=== PATIENT | male | born 1960 | race Caucasian/White ===

== ENCOUNTER 2019-08-18 16:03 | Outpatient (RCR) | payer MEDICARE, OTHER, SELFPAY ==
[2019-06-22 12:57] LABS: INR 2.5; Prothrombin Time 26.6 Seconds (11.1-14.7)
[2019-07-20 10:28] LABS: Prothrombin Time 30.5 Seconds (11.1-14.7)
[2019-08-18 17:27] LABS: Prothrombin Time 22.4 Seconds (11.1-14.7)
== END 2019-09-20 23:59 | disposition home or self-care (01) ==
LOC: ANHLAB 16:03
PROVIDERS: PCP Family Medicine; Visit Provider Internal Medicine Cardiovascular Disease
DX: I48.91 Unspecified atrial fibrillation (principal)
CPT/HCPCS: 36415; 85610

== ENCOUNTER 2019-12-21 07:50 | Outpatient (RCR) | payer MEDICARE, OTHER, SELFPAY ==
[2019-09-23 08:42] LABS: INR 2.4; Prothrombin Time 25.8 Seconds (11.1-14.7)
[2019-09-23 08:43] LABS: Alanine Aminotransferase 59 U/L (4-50); Blood Urea Nitrogen 15 mg/dL (9-20); Calcium 9.5 mg/dL (8.4-10.2); Carbon Dioxide 24 mmol/L (22-30); Chloride 104 mmol/L (98-107); Cholesterol 150 mg/dL (0-200); Estimated Glomerular Filt Rate > 60; Glucose 250 mg/dL (75-110); HDL Direct 41 mg/dL; Potassium 4.2 mmol/L (3.4-5.0); Sodium 137 mmol/L (137-145); Triglycerides 338 mg/dL (<150)
[2019-09-23 08:54] LABS: LDL Cholesterol Direct 69 mg/dL
[2019-09-23 10:41] LABS: Hemoglobin A1C 10.5 % (<5.7)
[2019-11-06 08:54] LABS: INR 2.4; Prothrombin Time 25.6 Seconds (11.1-14.7)
[2019-12-21 09:17] LABS: INR 2.3; Prothrombin Time 24.5 Seconds (11.1-14.7)
== END 2019-12-22 23:59 | disposition home or self-care (01) ==
LOC: ANHLAB 07:50
PROVIDERS: PCP Family Medicine; Visit Provider Internal Medicine Cardiovascular Disease
DX: E11.65 Type 2 diabetes mellitus with hyperglycemia (principal); I48.91 Unspecified atrial fibrillation
CPT/HCPCS: 36415; 80048; 80061; 83036; 84460; 85610

== ENCOUNTER 2020-02-23 07:04 | Outpatient (CLI) | payer MEDICARE, OTHER, SELFPAY ==
[2020-02-23 07:58] LABS: Hemoglobin A1C 10.4 % (<5.7)
[2020-02-23 07:59] LABS: Alanine Aminotransferase 64 U/L (4-50); Anion Gap 12.1 mmol/L (7-16); Blood Urea Nitrogen 15 mg/dL (9-20); Calcium 8.6 mg/dL (8.4-10.2); Carbon Dioxide 23 mmol/L (22-30); Chloride 106 mmol/L (98-107); Cholesterol 157 mg/dL (0-200); Estimated Glomerular Filt Rate > 60; Glucose 238 mg/dL (75-110); HDL Direct 41 mg/dL; Potassium 4.1 mmol/L (3.4-5.0); Sodium 137 mmol/L (137-145); Triglycerides 284 mg/dL (<150)
[2020-02-23 08:10] LABS: LDL Cholesterol Direct 65 mg/dL
== END 2020-02-23 07:05 | disposition home or self-care (01) ==
PROVIDERS: PCP Family Medicine; Visit Provider Family Medicine
DX: E11.65 Type 2 diabetes mellitus with hyperglycemia (principal); E78.5 Hyperlipidemia, unspecified; E78.1 Pure hyperglyceridemia
CPT/HCPCS: 36415; 80048; 80061; 83036; 84460; 85610

== ENCOUNTER 2020-04-25 08:44 | Outpatient (RCR) | payer MEDICARE, OTHER, SELFPAY ==
[2020-01-26 09:20] LABS: INR 2.4; Prothrombin Time 25.9 Seconds (11.1-14.7)
[2020-02-23 08:08] LABS: INR 2.6; Prothrombin Time 27.3 Seconds (11.1-14.7)
[2020-03-29 09:36] LABS: INR 2.5; Prothrombin Time 26.6 Seconds (11.1-14.7)
[2020-04-25 09:24] LABS: INR 2.5; Prothrombin Time 26.2 Seconds (11.1-14.7)
== END 2020-04-25 23:59 | disposition home or self-care (01) ==
LOC: ANHLAB 08:44
PROVIDERS: PCP Family Medicine; Visit Provider Internal Medicine Cardiovascular Disease
DX: I48.0 Paroxysmal atrial fibrillation (principal); Z79.01 Long term (current) use of anticoagulants
CPT/HCPCS: 36415; 85610

== ENCOUNTER 2020-08-22 06:54 | Outpatient (RCR) | payer MEDICARE, OTHER, SELFPAY ==
[2020-05-27 09:14] LABS: INR 2.2; Prothrombin Time 25.4 Seconds (11.1-14.7)
[2020-05-27 09:19] LABS: Alanine Aminotransferase 46 U/L (4-50); Anion Gap 5 mmol/L (8-16); Blood Urea Nitrogen 18 mg/dL (9-20); Calcium 9.2 mg/dL (8.4-10.2); Carbon Dioxide 25 mmol/L (22-30); Chloride 107 mmol/L (98-107); Cholesterol 151 mg/dL (0-200); Estimated Glomerular Filt Rate > 60; Glucose 215 mg/dL (75-110); HDL Direct 40 mg/dL; Potassium 4.1 mmol/L (3.4-5.0); Sodium 137 mmol/L (137-145); Triglycerides 249 mg/dL (<150)
[2020-05-27 09:30] LABS: Hemoglobin A1C 9.3 % (<5.7)
[2020-05-27 09:31] LABS: LDL Cholesterol Direct 60 mg/dL
[2020-05-27 09:40] LABS: MALB Creatinine Ratio 27.7 mg/g (0-30); Microalbumin Urine Random 42.4 mg/L (0-16.7)
[2020-06-22 10:54] LABS: INR 2.8
[2020-07-26 13:24] LABS: INR 2.7; Prothrombin Time 28.8 Seconds (11.1-14.7)
[2020-08-22 07:54] LABS: INR 2.4; Prothrombin Time 26.5 Seconds (11.1-14.7)
== END 2020-08-25 23:59 | disposition home or self-care (01) ==
LOC: ANHLAB 06:54
PROVIDERS: PCP Physician Assistant; Referring Provider Family Medicine; Visit Provider Internal Medicine Cardiovascular Disease
DX: Z51.81 Encounter for therapeutic drug level monitoring (principal); I48.0 Paroxysmal atrial fibrillation; E11.65 Type 2 diabetes mellitus with hyperglycemia; Z79.01 Long term (current) use of anticoagulants
CPT/HCPCS: 36415; 80048; 80053; 80061; 82043; 83036; 84460; 85610

== ENCOUNTER 2020-08-22 06:55 | Outpatient (CLI) | payer MEDICARE, OTHER, SELFPAY ==
[2020-08-22 07:59] LABS: Alanine Aminotransferase 51 U/L (4-50); Alkaline Phosphatase 81 U/L (38-126); Anion Gap 7 mmol/L (8-16); Aspartate Amino Transferase 48 U/L (17-59); Bilirubin,Total 0.8 mg/dL (0.2-1.3); Blood Urea Nitrogen 17 mg/dL (9-20); Calcium 8.8 mg/dL (8.4-10.2); Carbon Dioxide 26 mmol/L (22-30); Chloride 103 mmol/L (98-107); Estimated Glomerular Filt Rate > 60; Glucose 246 mg/dL (75-110); Potassium 4.1 mmol/L (3.4-5.0); Sodium 136 mmol/L (137-145)
[2020-08-22 08:51] LABS: Hemoglobin A1C 10.1 % (<5.7)
== END 2020-08-22 06:56 | disposition home or self-care (01) ==
PROVIDERS: PCP Physician Assistant; Visit Provider Physician Assistant
DX: E11.9 Type 2 diabetes mellitus without complications (principal)
CPT/HCPCS: 36415; 80053; 83036

== ENCOUNTER 2020-11-24 08:45 | Outpatient (CLI) | payer MEDICARE, OTHER, SELFPAY ==
[2020-11-24 09:25] LABS: Alanine Aminotransferase 57 U/L (4-50); Albumin Level 4.2 g/dL (3.5-5.1); Alkaline Phosphatase 77 U/L (38-126); Anion Gap 5 mmol/L (8-16); Aspartate Amino Transferase 58 U/L (17-59); Bilirubin,Total 0.8 mg/dL (0.2-1.3); Blood Urea Nitrogen 16 mg/dL (9-20); Calcium 9.5 mg/dL (8.4-10.2); Carbon Dioxide 29 mmol/L (22-30); Chloride 103 mmol/L (98-107); Estimated Glomerular Filt Rate > 60; Glucose 213 mg/dL (75-110); Hemoglobin A1C 10.8 % (<5.7); Potassium 4.4 mmol/L (3.4-5.0); Sodium 137 mmol/L (137-145)
== END 2020-11-24 08:46 | disposition home or self-care (01) ==
LOC: ANHLAB 08:48
PROVIDERS: PCP Physician Assistant; Visit Provider Physician Assistant
DX: E11.9 Type 2 diabetes mellitus without complications (principal)
CPT/HCPCS: 36415; 80053; 83036

== ENCOUNTER 2020-11-24 08:50 | Outpatient (RCR) | payer MEDICARE, OTHER, SELFPAY ==
[2020-09-19 08:53] LABS: INR 2.6; Prothrombin Time 28.6 Seconds (11.1-14.7)
[2020-10-24 08:36] LABS: INR 2.3; Prothrombin Time 25.7 Seconds (11.1-14.7)
[2020-10-24 08:40] LABS: Cholesterol 137 mg/dL (0-200); HDL Direct 41 mg/dL; Triglycerides 252 mg/dL (<150)
[2020-10-24 08:51] LABS: LDL Cholesterol Direct 50 mg/dL
[2020-11-24 09:20] LABS: INR 2.7; Prothrombin Time 29.1 Seconds (11.1-14.7)
[2020-11-24 09:22] LABS: Cholesterol 141 mg/dL (0-200); HDL Direct 44 mg/dL; Triglycerides 268 mg/dL (<150)
[2020-11-24 09:33] LABS: LDL Cholesterol Direct 53 mg/dL
== END 2020-12-18 23:59 | disposition home or self-care (01) ==
LOC: ANHLAB 08:50
PROVIDERS: PCP Physician Assistant; Visit Provider Internal Medicine Cardiovascular Disease
DX: Z51.81 Encounter for therapeutic drug level monitoring (principal); I48.0 Paroxysmal atrial fibrillation; E11.69 Type 2 diabetes mellitus with other specified complication; E78.5 Hyperlipidemia, unspecified; Z79.01 Long term (current) use of anticoagulants
CPT/HCPCS: 36415; 80053; 80061; 83036; 85610

== ENCOUNTER 2021-02-22 06:42 | Outpatient (RCR) | payer MEDICARE, OTHER, SELFPAY ==
[2020-12-20 11:24] LABS: INR 2.1; Prothrombin Time 24.1 Seconds (11.1-14.7)
[2021-01-24 10:14] LABS: INR 2.5; Prothrombin Time 26.7 Seconds (11.1-14.7)
[2021-02-22 07:57] LABS: INR 2.3; Prothrombin Time 25.1 Seconds (11.1-14.7)
== END 2021-03-20 23:59 | disposition home or self-care (01) ==
LOC: ANHLAB 06:42
PROVIDERS: PCP Physician Assistant; Visit Provider Internal Medicine Cardiovascular Disease
DX: Z51.81 Encounter for therapeutic drug level monitoring (principal); I48.0 Paroxysmal atrial fibrillation; Z79.01 Long term (current) use of anticoagulants
CPT/HCPCS: 36415; 85610

== ENCOUNTER 2021-06-07 09:13 | Outpatient (RCR) | payer MEDICARE, OTHER, SELFPAY ==
[2021-03-28 09:40] LABS: INR 2.7; Prothrombin Time 27.9 Seconds (11.1-14.7)
[2021-04-24 07:38] LABS: INR 3.1; Prothrombin Time 31.1 Seconds (11.1-14.7)
[2021-05-08 07:43] LABS: INR 2.6; Prothrombin Time 27.2 Seconds (11.1-14.7)
[2021-06-07 11:35] LABS: INR 2.5; Prothrombin Time 26.3 Seconds (11.1-14.7)
== END 2021-06-26 23:59 | disposition home or self-care (01) ==
LOC: ANHLAB 09:13
PROVIDERS: PCP Physician Assistant; Visit Provider Internal Medicine Cardiovascular Disease
DX: Z51.81 Encounter for therapeutic drug level monitoring (principal); I48.0 Paroxysmal atrial fibrillation; Z79.01 Long term (current) use of anticoagulants
CPT/HCPCS: 36415; 85610

== ENCOUNTER 2021-07-10 07:21 | Outpatient (RCR) | payer MEDICARE, OTHER, SELFPAY ==
[2021-07-10 08:13] LABS: INR 2.2; Prothrombin Time 24.1 Seconds (11.1-14.7)
== END 2021-10-08 23:59 | disposition home or self-care (01) ==
LOC: ANHLAB 07:21
PROVIDERS: PCP Physician Assistant; Visit Provider Internal Medicine Cardiovascular Disease
DX: Z51.81 Encounter for therapeutic drug level monitoring (principal); I48.0 Paroxysmal atrial fibrillation; Z79.01 Long term (current) use of anticoagulants
CPT/HCPCS: 36415; 85610

== ENCOUNTER 2022-02-26 06:01 | Emergency (ER) | payer MEDICARE, SELFPAY ==
--- NOTE | ~2022-02-26 | XR_ITS ---
EXAMINATION: XR foot RT min 3V DATE: 02/26/2022 06:31 INDICATION: Medial right foot pain. TECHNIQUE: 3 views of right foot were obtained. COMPARISON: Right foot radiographs 05/25/2016 FINDINGS: There is mild hallux valgus. A bunionette deformity is again seen. There is moderate osteoa rthritis of first metatarsophalangeal joint and mild osteoarthritis of some the interphalangeal joint s and midfoot joints. There is an enthesophyte at plantar aspect of calcaneal tuberosity. IMPRESSION: 1. Mild hallux valgus. 2. Polyarticular osteoarthritis. 3. Bunionette. Reviewed, dictated and finalized at location A.
[2022-02-26 06:07] VITALS: BP 139/87; PULSE 91; RESP 16; TEMP 36.4; O2SAT 97
--- NOTE | 2022-02-26 06:21 | ED.GENADULT ---
HPI - General Adult General Chief complaint: Extremity Injury, Lower Stated complaint: Right foot pain Time Seen by Provider: 02/26/22 06:12 History of Present Illness HPI narrative: 61-year-old male presenting to the emergency department for evaluation of right foot pain. Patient states approximately 8 days ago he was working in his yard and when walking back in the house he noticed he was having right foot pain. Patient states the right foot pain has persisted. Patient states pain is worsened with ambulation. Patient is a diabetic Related Data Home Medications Medication Instructions Recorded Confirmed aspirin 81 mg tablet,delayed 81 mg PO DAILY 07/19/20 12/22/21 release carvedilol 6.25 mg tablet 6.25 mg PO Q12H 07/19/20 12/22/21 furosemide 40 mg tablet 40 mg PO QAM 07/19/20 12/22/21 lisinopril 10 mg tablet 10 mg PO DAILY 07/19/20 12/22/21 mecobalamin (vitamin B12) 1,000 1,000 mcg PO DAILY 07/19/20 12/22/21 mcg chewable tablet multivitamin 1 tablet PO DAILY 07/19/20 12/22/21 omega-3 fatty acids 1,000 mg 1,000 mg PO DAILY 07/19/20 12/22/21 capsule (Fish Oil Concentrate) warfarin 10 mg tablet 10 mg PO QMWF 07/19/20 12/22/21 warfarin 2.5 mg tablet 2.5 mg PO DAILY 07/19/20 12/22/21 warfarin 7.5 mg tablet 7.5 mg PO DAILY 07/19/20 12/22/21 ascorbate calcium (vitamin C) 500 500 mg PO DAILY 06/07/21 12/22/21 mg tablet simvastatin 10 mg tablet 20 mg PO DAILY 06/07/21 12/22/21 Allergies Allergy/AdvReac Type Severity Reaction Status Date / Time Grass Allergy Mild Itching Uncoded 02/26/22 06:11 Review of Systems Review of Systems: CONSTITUTIONAL: Denies fever, chills, or sweats. EYES: Denies visual changes, redness, or discharge. ENT: Denies rhinorrhea, congestion, sore throat, or otalgia. CARDIOVASCULAR: Denies chest pain, palpitations, or edema. RESPIRATORY: Denies cough or dyspnea. GASTROINTESTINAL: Denies abdominal pain, nausea, vomiting, or diarrhea. GENITOURINARY: Denies dysuria or hematuria. SKIN: Denies rash or itching. MUSCULOSKELETAL: Right foot pain, see HPI NEUROLOGIC: Denies headache, numbness, or weakness. [facility] Past Medical History Medical History Anxiety CAD (coronary artery disease) Heart disease History of [place] (myocardial infarction) Hyperlipidemia Hypertension Obesity (BMI 35.0-39.9 without comorbidity) Other fatigue Type 2 diabetes mellitus Surgical History Surgical History Cardiac defibrillator in place History of heart artery stent Family History Family History Father Heart disease Mother No known problems Sibling Heart disease Sibling Asthma Social History Social History Smoking packs per day: 1 Smoking cigarettes per day: 20.0 Years smoked: 20 Smoking pack-years: 20.00 Smoking status: Never smoker Second hand tobacco smoke exposure: Yes Alcohol intake: never Substance use: never Exam Narrative: APPEARANCE: Well appearing, no pain, no distress, well-nourished. HEAD: normocephalic, atraumatic. NECK: Supple. No adenopathy, no masses. RESPIRATORY: Airway patent, respirations nonlabored. Clear to auscultation bilaterally, no rales, rhonchi, wheezing. CARDIOVASCULAR: Regular rate and rhythm without murmurs rubs or gallops. ABDOMINAL: Soft, nontender, nondistended, normal bowel sounds MUSCULOSKELETAL: No right lower extremity tenderness to palpation. No right ankle tenderness to palpation. Patient does have mid foot tenderness to palpation. Mild erythema which patient attributes to a hot pad that was removed prior to arrival. No evidence of cellulitis. No edema, no ecchymosis, NEURO: Alert. Cranial nerves II through XII intact. Grossly intact SKIN: Warm, dry. Normal Color Course Vital Sig
== END 2022-02-26 07:11 | disposition home or self-care (01) ==
PROVIDERS: Emergency Provider Emergency Medicine; PCP Physician Assistant
DX: M79.671 Pain in right foot (principal); I25.10 Atherosclerotic heart disease of native coronary artery without angina pectoris; I25.2 Old myocardial infarction; E78.5 Hyperlipidemia, unspecified; E11.9 Type 2 diabetes mellitus without complications; I11.9 Hypertensive heart disease without heart failure; Z79.01 Long term (current) use of anticoagulants; Z79.82 Long term (current) use of aspirin; Z79.84 Long term (current) use of oral hypoglycemic drugs; Z79.4 Long term (current) use of insulin; F17.210 Nicotine dependence, cigarettes, uncomplicated; M20.11 Hallux valgus (acquired), right foot; M19.071 Primary osteoarthritis, right ankle and foot; M21.621 Bunionette of right foot
CPT/HCPCS: 73630; 99283

== ENCOUNTER 2022-04-30 05:09 | Emergency (ER) | payer MEDICARE, SELFPAY ==
--- NOTE | ~2022-04-30 | XR_ITS ---
EXAMINATION: XR chest 2V DATE: 04/30/2022 06:13 INDICATION: Palpitations. TECHNIQUE: Frontal and lateral views of the chest were obtained. COMPARISON: Chest 2 views 01/10/2018 FINDINGS: The chest demonstrates clear lungs without pneumonia, pleural effusion, or pneumothorax. Th e heart size is normal. There is a left chest pacer/defibrillator with leads in right atrium, right v entricle, and coronary sinus. IMPRESSION: 1. No acute cardiopulmonary disease. Reviewed, dictated and finalized at location A.
[2022-04-30 05:12] VITALS: BP 136/88; PULSE 101; RESP 15; TEMP 36.6; O2SAT 96
--- NOTE | 2022-04-30 05:16 | ECG_ITS ---
Measurements Intervals [place] Rate: 97 P: 110 NV: 87 QRS: 244 QRSD: 160 T: 38 QT: 396 QTc: 504 Interpretive Statements PROBABLE SINUS RHYTHM WITH VENTRICULAR PACING ALTHOUGH P WAVES ARE DIFFICULT TO DISCERN KNOWN BIVENTRICULAR PACEMAKER NO PREVIOUS EKGS AVAILABLE Electronically Signed On 05-01-2022 12:59:19 CDT by Bryanna Murillo M.D.
--- NOTE | 2022-04-30 05:22 | ED.ARRPALP ---
HPI - Arrhythmia/Palpitations General Chief Complaint: Arrhythmia/Palpitations Stated Complaint: palpitations Time Seen by Provider: 04/30/22 05:13 History of Present Illness HPI narrative: This is a 61-year-old male with past medical history of [place] main (status post pacemaker/ICD placement) diabetes, hypertension, who presents to the emergency department complaining of palpitations for the past 3 days. Patient denies any associated pain though feels like he is exerting himself and presents just to be checked out. He states he is also felt crappy without any known sick contacts, diarrhea, or vomiting. He denies any recent changes in his medications. Related Data Home Medications Medication Instructions Recorded Confirmed aspirin 81 mg tablet,delayed 81 mg PO DAILY 07/19/20 12/22/21 release carvedilol 6.25 mg tablet 6.25 mg PO Q12H 07/19/20 12/22/21 furosemide 40 mg tablet 40 mg PO QAM 07/19/20 12/22/21 lisinopril 10 mg tablet 10 mg PO DAILY 07/19/20 12/22/21 mecobalamin (vitamin B12) 1,000 1,000 mcg PO DAILY 07/19/20 12/22/21 mcg chewable tablet multivitamin 1 tablet PO DAILY 07/19/20 12/22/21 omega-3 fatty acids 1,000 mg 1,000 mg PO DAILY 07/19/20 12/22/21 capsule (Fish Oil Concentrate) warfarin 10 mg tablet 10 mg PO QMWF 07/19/20 12/22/21 warfarin 2.5 mg tablet 2.5 mg PO DAILY 07/19/20 12/22/21 warfarin 7.5 mg tablet 7.5 mg PO DAILY 07/19/20 12/22/21 ascorbate calcium (vitamin C) 500 500 mg PO DAILY 06/07/21 12/22/21 mg tablet simvastatin 10 mg tablet 20 mg PO DAILY 06/07/21 12/22/21 Allergies Allergy/AdvReac Type Severity Reaction Status Date / Time Grass Allergy Mild Itching Uncoded 04/30/22 05:22 Review of Systems Review of Systems: CONSTITUTIONAL: Denies fever, chills, or sweats. EYES: Denies visual changes, redness, or discharge. ENT: Denies rhinorrhea, congestion, sore throat, or otalgia. CARDIOVASCULAR: Palpitations denies chest pain, or edema. RESPIRATORY: Denies cough or dyspnea. GASTROINTESTINAL: Denies abdominal pain, nausea, vomiting, or diarrhea. GENITOURINARY: Denies dysuria or hematuria. SKIN: Denies rash or itching. MUSCULOSKELETAL: Denies back pain, joint pain, or myalgia. NEUROLOGIC: Denies headache, numbness, dizziness, or weakness. PSYCHIATRIC: Denies anxiety or depression. [facility] Past Medical History Medical History Anxiety CAD (coronary artery disease) Heart disease History of [place] (myocardial infarction) Hyperlipidemia Hypertension Obesity (BMI 35.0-39.9 without comorbidity) Other fatigue Type 2 diabetes mellitus Surgical History Surgical History Cardiac defibrillator in place History of heart artery stent Family History Family History Father Heart disease Mother No known problems Sibling Heart disease Sibling Asthma Social History Social History Smoking packs per day: 1 Smoking cigarettes per day: 20.0 Years smoked: 20 Smoking pack-years: 20.00 Smoking status: Never smoker Second hand tobacco smoke exposure: Yes Alcohol intake: never Substance use: never Exam Narrative: GENERAL: Well-developed, well-nourished, and in no acute distress. HEAD: Normocephalic, atraumatic. EYES: PERRLA and EOMI. ENT: Nares clear, no rhinorrhea or epistaxis. Mucous membranes moist. Oropharynx without tonsillar hypertrophy exudate or other lesions. NECK: Supple. No adenopathy or masses. No carotid bruits or JVD CHEST: Clear to auscultation. No respiratory distress. No wheezes rales or rhonchi HEART: Tachycardic with regular rhythm. No murmur heard. Normal peripheral pulses. Ventricularly paced tachycardia noted on the monitor ABDOMEN: Soft, nontender, nondistended, normal active bowel sounds. EXTREM
[2022-04-30] MEDS: SODIUM CHLORIDE 0.9% IV 500 ML 999 ML IV CONT (05:25)
[2022-04-30 05:32] LABS: Basophils Absolute Auto 0.1 K/mm3 (0.0-0.1); Basophils Percent Auto 0.7 % (0.2-1.2); Eosinophils Absolute Auto 0.2 K/mm3 (0-0.3); Eosinophils Percent Auto 2.1 % (0-4.4); Hematocrit 51.4 % (42.0-52.0); Hemoglobin 16.9 g/dL (14.0-18.0); Immature Granulocyte Absolute 0.05 K/mm3 (0.00-0.031); Immature Granulocyte Percent A 0.6 % (0-0.5); Lymphocytes Absolute Auto 2.23 K/mm3 (0.9-3.2); Lymphocytes Percent Auto 26.1 % (18.3-44.2); Mean Corpuscular HGB Conc 32.9 g/dl (32-36); Mean Corpuscular Hemoglobin 31.5 pg (26-34); Mean Corpuscular Volume 95.9 fl (80-100); Mean Platelet Volume 10.5 fl (7.4-10.4); Monocytes Absolute Auto 0.8 K/mm3 (0.1-0.6); Monocytes Percent Auto 8.8 % (2.6-8.5); Neutrophils Absolute Auto 5.3 K/mm3 (1.3-6.7); Neutrophils Percent Auto 61.7 % (45.5-73.1); Platelet Count Result 202 k/mm3 (150-375); Red Blood Count 5.36 M/mm3 (4.6-6.20); Red Cell Distribution Width 14.1 % (11.5-14.5); White Blood Count 8.6 K/mm3 (4.5-10.0)
[2022-04-30 05:37] VITALS: PULSE 97
[2022-04-30 05:46] LABS: Alanine Aminotransferase 49 U/L (6-50); Albumin Level 4.7 g/dL (3.5-5.1); Alkaline Phosphatase 67 U/L (38-126); Anion Gap 15 mmol/L (8-16); Aspartate Amino Transferase 53 U/L (17-59); Bilirubin,Total 0.9 mg/dL (0.2-1.3); Blood Urea Nitrogen 19 mg/dL (9-20); Calcium 9.2 mg/dL (8.4-10.2); Carbon Dioxide 27 mmol/L (22-30); Chloride 102 mmol/L (98-107); Estimated CRCL calculation 106 ml/min; Estimated Glomerular Filt Rate > 60; Glucose 131 mg/dL (65-110); Magnesium 1.8 mg/dL (1.6-2.3); Potassium 3.8 mmol/L (3.4-5.0); Sodium 144 mmol/L (137-145)
[2022-04-30 05:57] LABS: Troponin I < 0.012 ng/mL (0.000-0.034)
[2022-04-30 06:04] VITALS: BP 113/77; PULSE 95; RESP 18; O2SAT 96
[2022-04-30 06:08] LABS: Influenza A QL RT-PCR Negative (Negative); Influenza B QL RT-PCR Negative (Negative); SARS-CoV-2 RNA PCR Negative
[2022-04-30 06:37] VITALS: PULSE 100; RESP 16; O2SAT 94
== END 2022-04-30 07:12 | disposition home or self-care (01) ==
PROVIDERS: Emergency Provider Preventive Medicine Aerospace Medicine; PCP Physician Assistant
DX: R00.2 Palpitations (principal); J06.9 Acute upper respiratory infection, unspecified; I25.10 Atherosclerotic heart disease of native coronary artery without angina pectoris; I10 Essential (primary) hypertension; E78.5 Hyperlipidemia, unspecified; I25.2 Old myocardial infarction; E11.9 Type 2 diabetes mellitus without complications; F41.9 Anxiety disorder, unspecified; E66.9 Obesity, unspecified; Z68.37 Body mass index [BMI] 37.0-37.9, adult; Z79.82 Long term (current) use of aspirin; Z79.01 Long term (current) use of anticoagulants; Z79.899 Other long term (current) drug therapy; Z79.4 Long term (current) use of insulin; Z79.84 Long term (current) use of oral hypoglycemic drugs; Z20.822 Contact with and (suspected) exposure to COVID-19
CPT/HCPCS: 36415; 71046; 80053; 83735; 84443; 84484; 85025; 87502; 93005; 96360; 99284; C9803; J7030; J7040; U0003; U0005

== ENCOUNTER 2022-12-09 21:15 | Emergency (ER) | payer MEDICARE, SELFPAY ==
--- NOTE | ~2022-12-09 | XR_ITS ---
EXAMINATION: XR chest 1V portable DATE: 12/09/2022 22:52 INDICATION: Cough and chest pain. TECHNIQUE: A single frontal view of the chest was obtained. COMPARISON: Chest 2 views 04/30/2022 FINDINGS: There is no pneumonia, pleural effusion, or pneumothorax. The heart size is normal. There i s a left chest pacer with leads in right atrium, right ventricle, and coronary sinus. IMPRESSION: 1. No acute cardiopulmonary disease. Reviewed, dictated and finalized at location A.
[2022-12-09 21:16] VITALS: BP 161/103; PULSE 96; RESP 12; TEMP 36.6; O2SAT 94
[2022-12-09 21:24] VITALS: O2SAT 94
[2022-12-09 21:30] VITALS: BP 137/93; PULSE 93; RESP 14; O2SAT 94
--- NOTE | 2022-12-09 22:42 | ECG_ITS ---
Measurements Intervals [place] Rate: 96 P: 70 DE: 104 QRS: 252 QRSD: 141 T: 68 QT: 384 QTc: 487 Interpretive Statements ATRIAL SENSE- ELECTRONIC VENTRICULAR PACEMAKER UNDERLYING SINUS OR ECTOPIC ATRIAL RHYTHM BASELINE ARTIFACT- I, II, AVR NO FURTHER INTERPRETATION IS POSSIBLE ATYPICAL ECG COMPARED TO ECG 04/30/2022 05:17:03 NO SIGNIFICANT CHANGES Electronically Signed On 12-10-2022 6:45:01 CDT by Jose Manuel Gatica D.O.
[2022-12-09] MEDS: MORPHINE SULFATE (*CRX) 4 MG/ML INJ IV PUSH (23:02)
[2022-12-09] MEDS: ONDANSETRON INJ 4 MG/2 ML VIAL IV PUSH (23:03)
[2022-12-09 23:04] LABS: Basophils Absolute Auto 0.1 K/mm3 (0.0-0.1); Eosinophils Absolute Auto 0.4 K/mm3 (0-0.3); Eosinophils Percent Auto 5.1 % (0-4.4); Hematocrit 46.5 % (42.0-52.0); Hemoglobin 15.3 g/dL (14.0-18.0); Immature Granulocyte Absolute 0.05 K/mm3 (0.00-0.031); Immature Granulocyte Percent A 0.7 % (0-0.5); Lymphocytes Absolute Auto 2.33 K/mm3 (0.9-3.2); Lymphocytes Percent Auto 30.6 % (18.3-44.2); Mean Corpuscular HGB Conc 32.9 g/dl (32-36); Mean Corpuscular Hemoglobin 31.2 pg (26-34); Mean Corpuscular Volume 94.9 fl (80-100); Mean Platelet Volume 10.5 fl (7.4-10.4); Monocytes Absolute Auto 0.7 K/mm3 (0.1-0.6); Monocytes Percent Auto 9.2 % (2.6-8.5); Neutrophils Absolute Auto 4.1 K/mm3 (1.3-6.7); Neutrophils Percent Auto 53.4 % (45.5-73.1); Platelet Count Result 238 k/mm3 (150-375); Red Cell Distribution Width 14.8 % (11.5-14.5); White Blood Count 7.6 K/mm3 (4.5-10.0)
[2022-12-09] MEDS: LEVALBUTEROL NEB 1.25 MG/3 ML INHALATION (23:04)
[2022-12-09 23:07] VITALS: PULSE 91; RESP 19
[2022-12-09] MEDS: IPRATROPIUM BR 0.02% INH SOLN 0.5 MG/2.5 ML VIAL INHALATION (23:07)
[2022-12-09 23:16] LABS: INR 3.6; Prothrombin Time 38.8 Seconds (11.1-14.7)
--- NOTE | 2022-12-09 23:21 | ED.CHESTPAIN ---
HPI - Chest Pain General Chief Complaint: Chest Pain Stated Complaint: sob Time Seen by Provider: 12/09/22 22:35 Source: patient Mode of arrival: ambulatory Limitations: no limitations History of Present Illness HPI narrative: This is a 62-year-old male with PMH of [place], CAD, T2DM, HTN presents to the ED with chief complaint of right-sided chest pain x2 days. Patient states he has been worked up for cough and shortness of breath for the past 3 weeks with his primary care doctor. States that they were concerned for pneumonia or bronchitis. He reports coughing up yellow sputum. Reports chest pain is worsened with cough. She states he does not have any trouble breathing while laying there, however gets worse when he has to cough. Reports the chest pain is located in the right lower chest and radiates across to the left. Does not seem to be brought on with exertion. Denies vomiting. Denies sweats or LOC. Denies fevers, chills, abdominal pain. Related Data Home Medications Medication Instructions Recorded Confirmed aspirin 81 mg tablet,delayed 81 mg PO DAILY 07/19/20 11/28/22 release carvedilol 6.25 mg tablet 6.25 mg PO Q12H 07/19/20 11/28/22 furosemide 40 mg tablet 40 mg PO QAM 07/19/20 11/28/22 lisinopril 10 mg tablet 10 mg PO DAILY 07/19/20 11/28/22 mecobalamin (vitamin B12) 1,000 1,000 mcg PO DAILY 07/19/20 11/28/22 mcg chewable tablet multivitamin 1 tablet PO DAILY 07/19/20 11/28/22 omega-3 fatty acids 1,000 mg 1,000 mg PO DAILY 07/19/20 11/28/22 capsule (Fish Oil Concentrate) warfarin 10 mg tablet 10 mg PO QMWF 07/19/20 11/28/22 warfarin 7.5 mg tablet 7.5 mg PO DAILY 07/19/20 11/28/22 ascorbate calcium (vitamin C) 500 500 mg PO DAILY 06/07/21 11/28/22 mg tablet simvastatin 20 mg tablet 20 mg PO DAILY 08/13/22 11/28/22 semaglutide 1 mg/dose (2 mg/1.5 1 mg subcut WEEKLY 11/13/22 11/28/22 mL) subcutaneous pen injector (Ozempic) warfarin 2.5 mg tablet 2.5 mg PO QMWF 11/13/22 11/28/22 Allergies Allergy/AdvReac Type Severity Reaction Status Date / Time Grass Allergy Mild Itching Uncoded 12/09/22 21:26 Review of Systems Review of Systems: CONSTITUTIONAL: Denies fever, chills, or sweats. EYES: Denies visual changes, redness, or discharge. ENT: Denies rhinorrhea, congestion, sore throat, or otalgia. CARDIOVASCULAR: See HPI RESPIRATORY: See HPI GASTROINTESTINAL: Denies abdominal pain, nausea, vomiting, or diarrhea. GENITOURINARY: Denies dysuria or hematuria. SKIN: Denies rash or itching. MUSCULOSKELETAL: Denies back pain, joint pain, or myalgia. NEUROLOGIC: Denies headache, numbness, dizziness, or weakness. PSYCHIATRIC: Denies anxiety or depression. [facility] Past Medical History Medical History (Updated 12/10/22 @ 03:01 by Zhang Belcher PA-C) Anxiety CAD (coronary artery disease) Heart disease History of [place] (myocardial infarction) Hyperlipidemia Hypertension Obesity (BMI 35.0-39.9 without comorbidity) Other fatigue Type 2 diabetes mellitus Surgical History Surgical History Cardiac defibrillator in place History of heart artery stent Family History Family History Father Heart disease Mother No known problems Sibling Heart disease Sibling Asthma Social History Social History Smoking packs per day: 1 Smoking cigarettes per day: 20.0 Years smoked: 20 Smoking pack-years: 20.00 Smoking status: Former smoker Second hand tobacco smoke exposure: Yes Alcohol intake: never Substance use: never Lack of Transportation: No Lack of Food: Never True Current Housing: I Have Housing Concerned About Future Housing: No Difficulty Paying Gas/Electric Bills: No Difficulty Paying for Meds: No Currently Unemployed: No Education: High School Diploma/GED Difficulty w/ Childcare or Family Care:
[2022-12-09 23:22] VITALS: PULSE 95; RESP 19
[2022-12-09] MEDS: ASPIRIN 81 MG CHEWABLE TABLET 324 MG PO (23:28)
[2022-12-09 23:30] LABS: NT Pro B Type Natriuretic Pept 336 pg/mL (19.9-100); Troponin I 0.016 ng/mL (0.000-0.034)
[2022-12-09 23:31] LABS: D Dimer 0.41 ug/mL (<0.48)
[2022-12-09 23:40] LABS: Alanine Aminotransferase 38 U/L (6-50); Albumin Level 4.1 g/dL (3.5-5.1); Alkaline Phosphatase 67 U/L (38-126); Anion Gap 9 mmol/L (8-16); Aspartate Amino Transferase 47 U/L (17-59); Bilirubin,Total 0.8 mg/dL (0.2-1.3); Blood Urea Nitrogen 10 mg/dL (9-20); Calcium 8.7 mg/dL (8.4-10.2); Carbon Dioxide 24 mmol/L (22-30); Chloride 109 mmol/L (98-107); Estimated CRCL calculation 123 ml/min; Estimated Glomerular Filt Rate > 60; Glucose 141 mg/dL (65-110); Potassium 3.7 mmol/L (3.4-5.0); Sodium 142 mmol/L (137-145)
[2022-12-10 00:02] LABS: Appearance Urine Clear (Clear); Bacteria Urine None Seen /hpf; Bilirubin Urine Negative (Negative); Blood Urine Trace (Negative); Color Urine Yellow (Yellow); Glucose Urine UA 3+ mg/dL (Negative); Ketones Urine Trace mg/dL (Negative); Leukocyte Esterase Ur Negative LEU/UL (Negative); Nitrate Urine Negative (Negative); Non Pathogenic Casts 0-2; Protein Urine Negative (Negative); RBC Urine 0-2 /hpf (0-2); Specific Grav Ur 1.021 (1.001-1.035); Squamous Epithelial Cell Urine None seen /hpf (Few); WBC Urine 0-5 /hpf
[2022-12-10 00:06] LABS: Add Urine Microscopic? YES
[2022-12-10 00:22] VITALS: BP 112/80; PULSE 93; RESP 16; O2SAT 93
--- NOTE | 2022-12-10 00:25 | PC.NURSE ---
This RN called pharmacy to have them verify nitroglycerin tablets prescription.
[2022-12-10] MEDS: NITROGLYCERIN SL 0.4 MG TABLET SUBLINGUAL (00:53)
--- NOTE | 2022-12-10 00:53 | PC.NURSE ---
This RN administered the first dose of 0.4 mg/ tablet. Pressure was 112/80 and heart rate at 83. Pt rated his pain a 7/10.
--- NOTE | 2022-12-10 00:59 | PC.NURSE ---
Addendum entered by Lashonda Barrow RN 12/10/22 01:00: Blood pressure was 78/63, heart rate of 102. Pt states pain is at a 6/10 pain. Next dose held and notified EDP. Original Note: After 5 minutes from administration of first nitro tablet vital signs were
[2022-12-10] MEDS: SODIUM CHLORIDE 0.9% IV 1,000 ML 999 ML IV CONT (01:03)
--- NOTE | 2022-12-10 01:06 | PC.NURSE ---
EDP ordered IVF as a bolus due to low BP of 73/50 after 1 dose of nitroglycerin tablet administration.
[2022-12-10] MEDS: ORPHENADRINE CITRATE 100 MG TABLET.ER PO (01:41)
[2022-12-10 01:47] LABS: Glucose Point of Care 148 mg/dl (65-105)
--- NOTE | 2022-12-10 02:18 | PC.NURSE ---
EDP discontinued IVF after blood pressure returned to WNL.
[2022-12-10 02:20] LABS: Troponin I 0.013 ng/mL (0.000-0.034)
[2022-12-10] MEDS: MORPHINE SULFATE (*CRX) 4 MG/ML INJ IV PUSH (03:23)
== END 2022-12-10 03:26 | disposition home or self-care (01) ==
PROVIDERS: Emergency Provider Physician Assistant; PCP Physician Assistant
DX: R07.89 Other chest pain (principal); I25.10 Atherosclerotic heart disease of native coronary artery without angina pectoris; I25.2 Old myocardial infarction; I11.9 Hypertensive heart disease without heart failure; E11.9 Type 2 diabetes mellitus without complications; E66.9 Obesity, unspecified; Z68.35 Body mass index [BMI] 35.0-35.9, adult; R06.2 Wheezing; Z95.5 Presence of coronary angioplasty implant and graft; Z95.810 Presence of automatic (implantable) cardiac defibrillator; Z87.891 Personal history of nicotine dependence; Z79.01 Long term (current) use of anticoagulants; Z79.82 Long term (current) use of aspirin; Z79.85 Long-term (current) use of injectable non-insulin antidiabetic drugs; Z79.4 Long term (current) use of insulin; Z79.84 Long term (current) use of oral hypoglycemic drugs
CPT/HCPCS: 36415; 71045; 80053; 81001; 82948; 83880; 84484; 85025; 85380; 85610; 93005; 94640; 96361; 96374; 96375; 96376; 99284; A9270; J2270; J2405; J7030

== ENCOUNTER 2023-12-21 15:32 | Emergency (ER) | payer MEDICARE, SELFPAY ==
--- NOTE | ~2023-12-21 | XR_ITS ---
EXAMINATION: XR knee RT min 4V DATE: 12/21/2023 16:45 INDICATION: Right knee injury and pain. TECHNIQUE: 4 views of right knee were obtained. COMPARISON: None. FINDINGS: Bone alignment is normal. No fracture. There is mild tricompartmental osteoarthritis. There is a small knee joint effusion. IMPRESSION: 1. Mild right knee osteoarthritis. 2. Small right knee joint effusion. Reviewed, dictated and finalized at location E.
[2023-12-21 15:33] VITALS: BP 124/84; PULSE 114; RESP 16; TEMP 36.9; O2SAT 97
--- NOTE | 2023-12-21 17:07 | ED.LOWEXIN ---
HPI - Extremity Injury (Lower) General Chief Complaint: Extremity Injury, Lower Stated Complaint: knee pain Time Seen by Provider: 12/21/23 17:03 Source: patient and family () Mode of arrival: ambulatory Limitations: no limitations History of Present Illness HPI Narrative: Patient is a 63 yo male who presents after misstepping with his right foot 5 days ago (Saturday) and experiencing a pop and acute onset pain. This occurred while getting out of bed trying to mark/catch a dog. No paresthesias. Experiencing pain and states it intermittently catches. On warfarin ; not taking NSAIDS. Has tried ice and Tylenol 2 x 500mg tablets. History of orthopedic proceure(s) but not in legs and 30 years ago. Pain particularly along medial aspect. Related Data Home Medications Medication Instructions Recorded Confirmed aspirin 81 mg tablet,delayed 81 mg PO DAILY 07/19/20 11/05/23 release carvedilol 6.25 mg tablet 6.25 mg PO Q12H 07/19/20 11/05/23 furosemide 40 mg tablet 40 mg PO QAM 07/19/20 11/05/23 lisinopril 10 mg tablet 10 mg PO DAILY 07/19/20 11/05/23 mecobalamin (vitamin B12) 1,000 1,000 mcg PO DAILY 07/19/20 11/05/23 mcg chewable tablet multivitamin 1 tablet PO DAILY 07/19/20 11/05/23 omega-3 fatty acids 1,000 mg 1,000 mg PO DAILY 07/19/20 11/05/23 capsule (Fish Oil Concentrate) warfarin 10 mg tablet 10 mg PO QMWF 07/19/20 11/05/23 warfarin 7.5 mg tablet 7.5 mg PO DAILY 07/19/20 11/05/23 ascorbate calcium (vitamin C) 500 500 mg PO DAILY 06/07/21 11/05/23 mg tablet simvastatin 20 mg tablet 20 mg PO DAILY 08/13/22 11/05/23 warfarin 2.5 mg tablet 2.5 mg PO QMWF 11/13/22 11/05/23 insulin aspar prot-insulin aspart 20 unit subcut BID 02/14/23 11/05/23 100 unit/mL (70-30) subcutaneous pen (Novolog Mix 70-30FlexPen U-100) Allergies Allergy/AdvReac Type Severity Reaction Status Date / Time grass pollen Allergy Unknown Unknown Verified 12/23/23 13:41 [facility] Past Medical History Medical History Anxiety CAD (coronary artery disease) Heart disease History of [place] (myocardial infarction) Hyperlipidemia Hypertension Obesity (BMI 35.0-39.9 without comorbidity) Other fatigue Type 2 diabetes mellitus Surgical History Surgical History Cardiac defibrillator in place History of heart artery stent Family History Family History Father Heart disease Mother No known problems Sibling Heart disease Sibling Asthma Social History Social History (Updated 12/23/23 @ 13:43 by Uyen Echavarria CMA) Smoking packs per day: 1 Smoking cigarettes per day: 20.0 Years smoked: 20 Smoking pack-years: 20.00 Smoking status: Former smoker Second hand tobacco smoke exposure: Yes Smoking end date: 07/22/04 Alcohol intake: never Substance use: never Do You Feel Safe in your Home?: Yes Lack of Transportation: No Lack of Food: Never True Current Housing: I Have Housing Concerned About Future Housing: No Difficulty Paying Gas/Electric Bills: No Difficulty Paying for Meds: No Currently Unemployed: No Education: High School Diploma/GED Difficulty w/ Childcare or Family Care: No Living arrangements: with family Occupation/Education: retired Exam Narrative: GENERAL: Well-appearing, well-nourished, and in no acute distress. HEAD: Normocephalic, atraumatic. EYES: Non injected, non icteric ENT: Nares clear, no rhinorrhea or epistaxis. NECK: Supple. CHEST: Speaking in full sentences. No respiratory distress. HEART: Regular rate at the time of exam ; Legs are warm and well perfused without pallor. ABDOMEN: Soft, nondistended. EXTREMITIES: Normal range of motion. Right knee with effusion but not warm to the touch, no overlying skin change. 5/5 strength with bilateral dorsi/plantar flexion, knee
[2023-12-21] MEDS: HYDROcodone/acetaminophen (*CRX) 5-325 MG TABLET 1 TAB PO (17:26)
--- NOTE | 2023-12-21 17:39 | PC.NURSE ---
Knee immobilizer placed on Right knee, patient verbalizes understanding, patient denies discomfort. patient pulses and mobility intact distal to the immobilizer
[2023-12-21 17:48] VITALS: BP 132/84; PULSE 84; RESP 18; TEMP 36.4; O2SAT 100
== END 2023-12-21 17:50 | disposition home or self-care (01) ==
LOC: ANHED 17:30
PROVIDERS: Emergency Provider Student in an Organized Health Care Education/Training Program; PCP Physician Assistant
DX: M25.461 Effusion, right knee (principal); M17.11 Unilateral primary osteoarthritis, right knee; M25.561 Pain in right knee; F41.9 Anxiety disorder, unspecified; I25.10 Atherosclerotic heart disease of native coronary artery without angina pectoris; I11.0 Hypertensive heart disease with heart failure; I50.9 Heart failure, unspecified; I25.2 Old myocardial infarction; E78.5 Hyperlipidemia, unspecified; E11.9 Type 2 diabetes mellitus without complications; Z79.4 Long term (current) use of insulin; Z79.01 Long term (current) use of anticoagulants
CPT/HCPCS: 73564; 99283; A9270

== ENCOUNTER 2025-01-13 19:38 | Inpatient (IN) | payer MEDICARE, SELFPAY ==
--- NOTE | ~2025-01-13 | XR_ITS ---
EXAMINATION: XR chest 1V portable DATE: 01/20/2025 12:16 INDICATION: PICC line placement TECHNIQUE: frontal view of the chest was obtained. COMPARISON: Chest radiograph dated 12/09/2022 FINDINGS: Right upper extremity peripherally inserted central venous catheter (PICC) tip at the cephalad super ior vena cava approximately 2 cm above level of the george and approximately 8 cm above the expected location of the superior cavoatrial junction. Lungs are clear with no focal airspace opacities, pulmo nary edema, pleural effusion or pneumothorax. The cardiomediastinal silhouette is normal. Three lead pacemaker/AICD seen with leads projecting over the expected locations of the right atrial appendage, right ventricular outflow tract and overlying the left ventricle likely having traversed the coronary sinus. IMPRESSION: 1. Right upper extremity PICC line tip at the cephalad superior vena cava. 2. No acute cardiopulmonary disease. Reviewed, dictated and finalized at location A.
--- NOTE | ~2025-01-13 | CT_ITS ---
CLINICAL INDICATION: Left flank and left lower quadrant pain COMPARISON: None. TECHNIQUE: Multiple contiguous axial images of the abdomen and pelvis were performed without the admi nistration of intravenous contrast The dose-length product (DLP) was 1526.17 mGy-cm. Automated exposure control and iterative reconstruction technique were employed. FINDINGS/OBSERVATIONS: Visualized lower thorax: Bibasilar atelectasis. The remainder of the bilateral lung bases are clear The heart is borderline enlarged, with a small pericardial effusion. Small hiatal hernia is present. Liver: The liver demonstrates homogeneous attenuation and is not enlarged. Gallbladder and biliary system: The gallbladder is not visualized, presumably surgically absent. Pancreas: Limited evaluation of the pancreas secondary to the lack of intravenous contrast. Spleen: The spleen demonstrates homogeneous attenuation and is not enlarged. Kidneys: Moderate left-sided hydroureteronephrosis extending to the proximal left ureter where a 7.3 mm calcul us is present. 3 mm nonobstructing calculus within the lower pole of the right kidney. No additional obstructing or nonobstructing stones within the left kidney. No right-sided hydronephrosis. Adrenal glands: Unremarkable. Gastrointestinal tract: Fecal stasis within the colon. Appendix: The air-filled appendix is of normal caliber (axial series, images 113 through 131) Vasculature: Calcified atherosclerotic disease. Lymph nodes: No pathologically enlarged or morphologically suspicious lymph nodes within the retroperitoneum or at the root of the mesentery. Pelvic structures: The bladder is distended, and otherwise unremarkable. The prostate gland is not enlarged. Body wall and musculoskeletal: Age-appropriate degenerative disease within the lower thoracic and lumbosacral spines. IMPRESSION: Moderate left-sided hydroureteronephrosis secondary to a 7.3 mm calculus in the proximal left ureter. Reviewed, dictated and finalized at location A.
--- NOTE | ~2025-01-13 | XR_ITS ---
INTRAOPERATIVE FLUOROSCOPY: CLINICAL HISTORY: 64 years old Male; LT STENT PLACEMENT PROCEDURE COMMENTS: Limited intraoperative fluoroscopy of the left flank was performed. CUMULATIVE DOSE: 20.3 mGy FLUOROSCOPY TIME: 44 seconds FINDINGS/IMPRESSION: Please refer to operative note for further details. Reviewed, dictated and finalized at location A.
[2025-01-13 19:49] VITALS: BP 146/92; PULSE 104; RESP 18; TEMP 37; O2SAT 97
[2025-01-13 20:18] LABS: Add Urine Microscopic? YES; Appearance Urine Cloudy (Clear); Glucose Urine UA 3+ mg/dL (Negative); Leukocyte Esterase Ur 3+ LEU/UL (Negative); Nitrate Urine Positive (Negative); Non Pathogenic Casts 0-2; Specific Grav Ur 1.021 (1.001-1.035)
[2025-01-13 22:25] VITALS: BP 148/92; PULSE 97; RESP 18; TEMP 36.6; O2SAT 95
--- NOTE | 2025-01-13 22:40 | ED.MALEGU ---
HPI - Male Genitourinary General Chief complaint: Urogenital-Male <Jana Mcmillan PA-C - Last Filed: 01/14/25 00:18> Stated complaint: flank pain <Jana Mcmillan PA-C - Last Filed: 01/14/25 00:18> Time Seen by Provider: 01/13/25 22:22 <Jana Mcmillan PA-C - Last Filed: 01/14/25 00:18> History of Present Illness HPI Narrative: 64-year-old male with history of type 2 diabetes, hypertension, hyperlipidemia, AFib on warfarin, s/p pacemaker and defibrillator placement presents to emergency department for left flank pain and left lower quadrant abdominal pain that started today. Patient reports urinary frequency for the past month. States today he developed pain in his left flank that radiates down into his left lower quadrant of the abdomen with associated nausea. He denies vomiting, diarrhea, dysuria, hematuria. He reports subjective fevers today. He states it feels like the last time at a kidney stone. He denies needing prior intervention for kidney stones. Last p.o. intake was 1-2 p.m. <Jana Mcmillan PA-C - Last Filed: 01/14/25 00:18> Related Data Home medications: Home Medications ?Medication ?Instructions ?Recorded ?Confirmed ?Last Taken ?Type aspirin 81 mg tablet,delayed 81 mg PO DAILY 07/19/20 12/31/24 Unknown History release carvedilol 6.25 mg tablet 6.25 mg PO Q12H 07/19/20 12/31/24 Unknown History furosemide 40 mg tablet 40 mg PO QAM 07/19/20 12/31/24 Unknown History lisinopril 10 mg tablet 10 mg PO DAILY 07/19/20 12/31/24 Unknown History mecobalamin (vitamin B12) 1,000 1,000 mcg PO DAILY 07/19/20 12/31/24 Unknown History mcg chewable tablet multivitamin 1 tablet PO DAILY 07/19/20 12/31/24 Unknown History omega-3 fatty acids 1,000 mg 1,000 mg PO DAILY 07/19/20 12/31/24 Unknown History capsule (Fish Oil Concentrate) warfarin 10 mg tablet 10 mg PO QMWF 07/19/20 12/31/24 Unknown History warfarin 7.5 mg tablet 7.5 mg PO DAILY 07/19/20 12/31/24 Unknown History ascorbate calcium (vitamin C) 500 500 mg PO DAILY 06/07/21 12/31/24 Unknown History mg tablet simvastatin 20 mg tablet 20 mg PO DAILY 08/13/22 12/31/24 Unknown History warfarin 2.5 mg tablet 2.5 mg PO QMWF 11/13/22 12/31/24 Unknown History insulin aspar prot-insulin aspart 20 unit subcut BID 02/14/23 12/31/24 Unknown History 100 unit/mL (70-30) subcutaneous pen (Novolog Mix 70-30FlexPen U-100) <Jana Mcmillan PA-C - Last Filed: 01/14/25 00:18> Allergies/Adverse reactions: Allergies Allergy/AdvReac Type Severity Reaction Status Date / Time grass pollen Allergy Mild Itching Verified 01/13/25 19:53 <Jana Mcmillan PA-C - Last Filed: 01/14/25 00:18> Review of Systems Review of Systems: All systems reviewed & are unremarkable except as noted in HPI and below <Jana Mcmillan PA-C - Last Filed: 01/14/25 00:18> [facility] Past Medical History Medical History: Medical History COVID Type 2 diabetes mellitus Other fatigue CAD (coronary artery disease) Hyperlipidemia Hypertension Obesity (BMI 35.0-39.9 without comorbidity) Anxiety History of MO (myocardial infarction) Heart disease <Jana Mcmillan PA-C - Last Filed: 01/14/25 00:18> Surgical History Surgical History: Surgical History History of heart artery stent Cardiac defibrillator in place <Jana Mcmillan PA-C - Last Filed: 01/14/25 00:18> Family History Family History: Family History Father Heart disease Acute myocardial infarction Mother No known problems Acute myocardial infarction Sibling Heart disease Asthma <Jana Mcmillan PA-C - Last Filed: 01/14/25 00:18> Social History Social History: Social History Smoking packs per day: 1 Smoking cigarettes per day: 20.0 Years smoked: 20 Smoking pack-years: 20.00 Smoking status: Former smoker Second hand tobacco smoke exposure: Yes Smoking end date: 07/22/04 Alcohol intake: never Substance use: never Substance use type: does not use Do You Feel Safe in your Home?: Yes Lack of Transportation: No Lack of Food: Never True Current Housing: I Have Housing Concerned About Future Housing: No Difficulty Paying Gas/Electric Bills: No Difficulty Paying for Meds: No Currently Unemployed: No Education: High School Diploma/GED Difficulty w/ Childcare or Family Care: No Living arrangements: with family 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 Gender identity (if verbalized by the patient): Male Spiritual care concerns: No <Jana Mcmillan PA-C - Last Filed: 01/14/25 00:18> Exam Narrative: GENERAL: Well-appearing, well-nourished, and in no acute distress. HEAD: Normocephalic, atraumatic. EYES: EOMI. ENT: Nares clear, no rhinorrhea or epistaxis. Mucous membranes moist. NECK: Supple. CHEST: Clear to auscultation. No respiratory distress. HEART: Regular rate and rhythm. No murmur heard. Normal peripheral pulses. ABDOMEN: Soft, nontender, nondistended, normal active bowel sounds. Left CVA tenderness EXTREMITIES: Normal range of motion. No edema. SKIN: Warm, dry, no rash. NEURO: No focal deficits. Alert and oriented x3 <Jana Mcmillan PA-C - Last Filed: 01/14/25 00:18> Course HEAD PACKAGER/PA Physician Supervision For this patient encounter, I reviewed the HEAD PACKAGER or PA documentation, treatment plan, and medical decision making; and I had [id number] time with this patient. <Blaise King MD - Last Filed: 01/14/25 01:51> Vital Signs Vital signs: Vital Signs Temperature 98.6 F 01/13/25 19:49 Pulse Rate 104 H 01/13/25 19:49 Respiratory Rate 18 06/25/25 19:49 Blood Pressure 146/92 H 01/13/25 19:49 Pulse Oximetry 97 01/13/25 19:49 Oxygen Delivery Room Air 01/13/25 19:49 Temperature 98.2 F 01/14/25 01:25 Pulse Rate 106 H 01/14/25 01:25 Respiratory Rate 16 01/14/25 01:25 Blood Pressure 146/89 H 01/14/25 01:25 Pulse Oximetry 97 01/14/25 01:25 Oxygen Delivery Room Air 01/13/25 22:25 <Jana Mcmillan PA-C - Last Filed: 01/14/25 00:18> Vital Signs Temperature 98.6 F 01/13/25 19:49 Pulse Rate 104 H 01/13/25 19:49 Respiratory Rate 18 01/13/25 19:49 Blood Pressure 146/92 H 01/13/25 19:49 Pulse Oximetry 97 01/13/25 19:49 Oxygen Delivery Room Air 01/13/25 19:49 Temperature 98.2 F 01/14/25 01:25 Pulse Rate 106 H 01/14/25 01:25 Respiratory Rate 16 01/14/25 01:25 Blood Pressure 146/89 H 01/14/25 01:25 Pulse Oximetry 97 01/14/25 01:25 Oxygen Delivery Room Air 01/13/25 22:25 <Blaise King MD - Last Filed: 01/14/25 01:51> MDM - Male Genitourinary MDM Narrative Medical decision making narrative: 64-year-old male presents emergency department for left flank pain left lower quadrant abdominal pain that started today. Patient endorses urinary frequency for 1 month. Reports associated nausea and subjective fevers today. Vitals with mild tachycardia 104 which has since improved. Patient is afebrile and nontoxic appearing. Exam is significant for left-sided CVA tenderness. CBC shows leukocytosis of 11.7, no bandemia. Chemistries with mildly elevated creatinine of 1.33, fluids provided. UA indicative of urinary tract infection greater than 100 white blood cells, 4+ bacteria, 3+ leuk esterase and positive nitrites. No hematuria. Lipase is mildly elevated at 361, patient has no epigastric abdominal pain, low clinical suspicion for pancreatitis. CT abdomen pelvis shows moderate left-sided hydroureteronephrosis secondary to 7.3 mm calculus in the proximal left ureter. Patient updated on results. He was started on Rocephin. Blood cultures are pending. He was given IV fluids, morphine and Zofran. On re-evaluation is reportedly having persistent pain, but appears resting comfortably in bed. Will provide Dilaudid. Discussed case with urologist, Dr. Odonnell, who agrees to consult. Plans to take patient to OR in the morning for stent placement. Discussed with hospitalist HEAD PACKAGER, Rafy, who agrees to admission. <Jana Mcmillan PA-C - Last Filed: 01/14/25 00:18> Lab Data Result diagrams: 01/13/25 22:34 01/13/25 22:34 <Jana Mcmillan PA-C - Last Filed: 01/14/25 00:18> Labs: Lab Results 01/13/25 01/13/25 01/13/25 Range/Units 20:04 22:34 22:37 WBC 11.7 H (4.5-10.0) K/mm3 RBC 4.99 (4.6-6.20) M/mm3 Hgb 14.9 (14.0-18.0) g/dL Hct 45.7 (42.0-52.0) % MCV 91.6 (80-100) fl MCH 29.9 (26-34) pg MCHC 32.6 (32-36) g/dl RDW 14.7 H (11.5-14.5) % Plt Count 207 (150-375) k/mm3 MPV 10.6 H (7.4-10.4) fl Immature Gran % (Auto) 0.6 H (0-0.5) % Neut % (Auto) 78.3 H (45.5-73.1) % Lymph % (Auto) 10.2 L (18.3-44.2) % [place] % (Auto) 9.4 H (2.6-8.5) % Eos % (Auto) 1.1 (0-4.4) % Baso % (Auto) 0.4 (0.2-1.2) % Lymph # (Auto) 1.19 (0.9-3.2) K/mm3 [place] # (Auto) 1.1 H (0.1-0.6) K/mm3 Eos # (Auto) 0.1 (0-0.3) K/mm3 Baso # (Auto) 0.1 (0.0-0.1) K/mm3 Abs Immat Gran (auto) 0.07 H (0.00-0.031) K/mm3 Absolute Neuts (auto) 9.1 H (1.3-6.7) K/mm3 Absolute Nucleated RBC 0.000 (0.0-0.012) K/mm3 Nucleated RBC % 0.0 (0.0-0.2) % Sodium 141 (137-145) mmol/L Potassium 4.3 (3.4-5.0) mmol/L Chloride 108 H (98-107) mmol/L Carbon Dioxide 23 (22-30) mmol/L Anion Gap 10 (4-12) mmol/L BUN 18 (9-20) mg/dL Creatinine 1.33 H (0.7-1.3) mg/dL Estim Creat Clear Calc Not Reportable Estimated GFR 54 L (59 - ) Glucose 137 H (65-110) mg/dL Calcium 9.7 (8.4-10.2) mg/dL Total Bilirubin 0.9 (0.2-1.3) mg/dL AST 39 (17-59) U/L ALT 28 (6-50) U/L Alkaline Phosphatase 66 (38-126) U/L Total Protein 7.3 (6.3-8.2) g/dL Albumin 4.4 (3.5-5.1) g/dL Lipase 361 H (23-300) U/L Urine Color Yellow (Yellow) Urine Appearance Cloudy H (Clear) Urine pH 6.5 (5.0-9.0) Ur Specific [place] 1.021 (1.001-1.035) Urine Protein 1+ H (Negative) mg/dL Urine Glucose (UA) 3+ H (Negative) mg/dL Urine Ketones Trace H (Negative) mg/dL Ur Blood (Man) 1+ H (Negative) Urine Nitrate Positive H (Negative) Urine Bilirubin Negative (Negative) Urine Urobilinogen 1.0 (<2.0) mg/dL Leukocyte Esterase Rfl 3+ H (Negative) WILLIAMS/UL Urine RBC 0-2 (0-2) /hpf Urine WBC >100 H (0-3) /hpf Ur Squamous Epith Cells None seen (Few) /hpf Urine Bacteria 4+ H /hpf Urine Casts 0-2 <Jana Mcmillan PA-C - Last Filed: 01/14/25 00:18> Lab Results 01/13/25 01/13/25 01/13/25 Range/Units 20:04 22:34 22:37 WBC 11.7 H (4.5-10.0) K/mm3 RBC 4.99 (4.6-6.20) M/mm3 Hgb 14.9 (14.0-18.0) g/dL Hct 45.7 (42.0-52.0) % MCV 91.6 (80-100) fl MCH 29.9 (26-34) pg MCHC 32.6 (32-36) g/dl RDW 14.7 H (11.5-14.5) % Plt Count 207 (150-375) k/mm3 MPV 10.6 H (7.4-10.4) fl Immature Gran % (Auto) 0.6 H (0-0.5) % Neut % (Auto) 78.3 H (45.5-73.1) % Lymph % (Auto) 10.2 L (18.3-44.2) % [place] % (Auto) 9.4 H (2.6-8.5) % Eos % (Auto) 1.1 (0-4.4) % Baso % (Auto) 0.4 (0.2-1.2) % Lymph # (Auto) 1.19 (0.9-3.2) K/mm3 [place] # (Auto) 1.1 H (0.1-0.6) K/mm3 Eos # (Auto) 0.1 (0-0.3) K/mm3 Baso # (Auto) 0.1 (0.0-0.1) K/mm3 Abs Immat Gran (auto) 0.07 H (0.00-0.031) K/mm3 Absolute Neuts (auto) 9.1 H (1.3-6.7) K/mm3 Absolute Nucleated RBC 0.000 (0.0-0.012) K/mm3 Nucleated RBC % 0.0 (0.0-0.2) % Sodium 141 (137-145) mmol/L Potassium 4.3 (3.4-5.0) mmol/L Chloride 108 H (98-107) mmol/L Carbon Dioxide 23 (22-30) mmol/L Anion Gap 10 (4-12) mmol/L BUN 18 (9-20) mg/dL Creatinine 1.33 H (0.7-1.3) mg/dL Estim Creat Clear Calc Not Reportable Estimated GFR 54 L (59 - ) Glucose 137 H (65-110) mg/dL Calcium 9.7 (8.4-10.2) mg/dL Total Bilirubin 0.9 (0.2-1.3) mg/dL AST 39 (17-59) U/L ALT 28 (6-50) U/L Alkaline Phosphatase 66 (38-126) U/L Total Protein 7.3 (6.3-8.2) g/dL Albumin 4.4 (3.5-5.1) g/dL Lipase 361 H (23-300) U/L Urine Color Yellow (Yellow) Urine Appearance Cloudy H (Clear) Urine pH 6.5 (5.0-9.0) Ur Specific [place] 1.021 (1.001-1.035) Urine Protein 1+ H (Negative) mg/dL Urine Glucose (UA) 3+ H (Negative) mg/dL Urine Ketones Trace H (Negative) mg/dL Ur Blood (Man) 1+ H (Negative) Urine Nitrate Positive H (Negative) Urine Bilirubin Negative (Negative) Urine Urobilinogen 1.0 (<2.0) mg/dL Leukocyte Esterase Rfl 3+ H (Negative) WILLIAMS/UL Urine RBC 0-2 (0-2) /hpf Urine WBC >100 H (0-3) /hpf Ur Squamous Epith Cells None seen (Few) /hpf Urine Bacteria 4+ H /hpf Urine Casts 0-2 <Blaise King MD - Last Filed: 01/14/25 01:51> Discharge Plan Discharge Clinical Impression: Acute UTI, Calculus, ureteral <Jana Mcmillan PA-C - Last Filed: 01/14/25 00:18> Patient Disposition: Still a Patient <Jana Mcmillan PA-C - Last Filed: 01/14/25 00:18> Condition: Stable <Jana Mcmillan PA-C - Last Filed: 01/14/25 00:18>
[2025-01-13 22:43] LABS: Hematocrit 45.7 % (42.0-52.0); Hemoglobin 14.9 g/dL (14.0-18.0); Immature Granulocyte Percent A 0.6 % (0-0.5); Lymphocytes Absolute Auto 1.19 K/mm3 (0.9-3.2); Mean Corpuscular HGB Conc 32.6 g/dl (32-36); Mean Corpuscular Hemoglobin 29.9 pg (26-34); Mean Corpuscular Volume 91.6 fl (80-100); Nucleated Red Blood Cells Absolute Auto 0.000 K/mm3 (0.0-0.012); Nucleated Red Blood Cells Perc 0.0 % (0.0-0.2); Platelet Count Result 207 k/mm3 (150-375); Red Blood Count 4.99 M/mm3 (4.6-6.20); White Blood Count 11.7 K/mm3 (4.5-10.0)
[2025-01-13 22:53] LABS: Alanine Aminotransferase 28 U/L (6-50); Albumin Level 4.4 g/dL (3.5-5.1); Alkaline Phosphatase 66 U/L (38-126); Anion Gap 10 mmol/L (4-12); Aspartate Amino Transferase 39 U/L (17-59); Bilirubin,Total 0.9 mg/dL (0.2-1.3); Blood Urea Nitrogen 18 mg/dL (9-20); Calcium 9.7 mg/dL (8.4-10.2); Carbon Dioxide 23 mmol/L (22-30); Chloride 108 mmol/L (98-107); Estimated Glomerular Filt Rate 54; Glucose 137 mg/dL (65-110); Potassium 4.3 mmol/L (3.4-5.0); Sodium 141 mmol/L (137-145); Total Protein 7.3 g/dL (6.3-8.2)
[2025-01-13] MEDS: MORPHINE SULFATE (*CRX) 4 MG/ML INJ IV PUSH (22:55)
[2025-01-13] MEDS: ONDANSETRON INJ 4 MG/2 ML VIAL IV PUSH (22:55)
[2025-01-13 23:00] LABS: Lipase 361 U/L (23-300)
[2025-01-13] MEDS: SODIUM CHLORIDE 0.9% IV 1,000 ML 999 ML IV CONT (23:04)
[2025-01-14] VITALS (22 sets, daily range): BP systolic 101–152; BP diastolic 66–95; PULSE 98–116; RESP 14–24; TEMP 36.4–37.7; O2SAT 91–99; BMI 34.7
[2025-01-14] MEDS: SODIUM CHLORIDE 0.9% IV 1,000 ML 125 ML IV CONT ×2 (00:19→10:40)
[2025-01-14] MEDS: HYDROmorphone HCL INJ (*CRX) 2 MG/ML VIAL 0.5 MG IV PUSH ×2 (00:19→06:58)
--- NOTE | 2025-01-14 01:12 | ADMGEN ---
This patient, Christos Gamboa, was admitted to 3 [facility] Surg Room 315-01. Patient/family oriented to hospital policies and general routines including ID bracelet, bed and alarms, visiting hours, pain management, procedures, bathroom and other care routines, personal items, smoking policy, room service/diet, and visiting hours. Information on how to activate the Rapid Response Team has been discussed. Patient/Family are encouraged to report perceived risks to care and to ask questions if they do not understand what they are told or what they should do.
--- NOTE | 2025-01-14 03:24 | PC.NURSE ---
On 01/14/25, the Graduate Nurse, Nicole, provided care and completed [employer] documentation on this patient with this nurse available for questions/assistance at side. I have reviewed the Nicole's documentation and agree with the findings.
--- NOTE | 2025-01-14 05:50 | P.HP_ITS ---
H&P: HPI History of Present Illness Date/Time: 01/14/25 05:50 Chief Complaint: Obstructing ureteral stone on left with UTI Narrative: This is a 64-year-old male patient was admitted to the hospital for obstructing left ureteral stone with hydronephrosis and urinary of UTI. Patient has complaining urinary frequency for about a month. States he developed left flank pain radiating to the left lower quadrant abdomen with nausea. He also subjective fever. He has had prior kidney stones but has not previously required intervention. Workup in the emergency department revealed elevated white blood cell count 11.7 creatinine 1.33 with an estimated GFR 54, a lactic acid of 2.1. CT scan abdomen and pelvis showed obstructing proximal left ureteral stone 7.3 mm hydronephrosis. Urinalysis with multiple findings consistent UTI including positive nitrates 3+ leukocyte esterase greater wbc's and 4+ urine bacteria squamous cells. Urology was consulted by the ER and instructed to keep patient NPO after midnight for expected OR for ureteral stent placement. Patient reports LLQ and left flank pain is still very bad this morning. No nausea, no chest pain, no dyspnea, no new symptoms. He is hungry and thirsty, last oral intake was 2 pm on 01/13. Review of Systems Review of Systems: All systems reviewed & are unremarkable except as noted in HPI and below PMFSH Past Medical History Medical History COVID Type 2 diabetes mellitus Other fatigue CAD (coronary artery disease) Hyperlipidemia Hypertension Obesity (BMI 35.0-39.9 without comorbidity) Anxiety History of [place] (myocardial infarction) Heart disease Surgical History Surgical History History of heart artery stent Cardiac defibrillator in place Family History Family History Father Heart disease Acute myocardial infarction Mother No known problems Acute myocardial infarction Sibling Heart disease Asthma Social History Social History Smoking packs per day: 1 Smoking cigarettes per day: 20.0 Years smoked: 20 Smoking pack-years: 20.00 Smoking status: Former smoker Second hand tobacco smoke exposure: Yes Smoking end date: 07/22/04 Alcohol intake: never Substance use: never Substance use type: does not use Do You Feel Safe in your Home?: Yes Lack of Transportation: No Lack of Food: Never True Current Housing: I Have Housing Concerned About Future Housing: No Difficulty Paying Gas/Electric Bills: No Difficulty Paying for Meds: No Currently Unemployed: No Education: High School Diploma/GED Difficulty w/ Childcare or Family Care: No Living arrangements: with family 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 Gender identity (if verbalized by the patient): Male Spiritual care concerns: No Meds Home Medications and Allergies Home Medications ?Medication ?Instructions ?Recorded ?Confirmed ?Type aspirin 81 mg tablet,delayed 81 mg PO DAILY 07/19/20 01/14/25 History release carvedilol 6.25 mg tablet 6.25 mg PO Q12H 07/19/20 01/14/25 History furosemide 40 mg tablet 40 mg PO QAM 07/19/20 01/14/25 History lisinopril 10 mg tablet 10 mg PO DAILY 07/19/20 01/14/25 History mecobalamin (vitamin B12) 1,000 1,000 mcg PO DAILY 07/19/20 01/14/25 History mcg chewable tablet multivitamin 1 tablet PO DAILY 07/19/20 01/14/25 History omega-3 fatty acids 1,000 mg 1,000 mg PO DAILY 07/19/20 01/14/25 History capsule (Fish Oil Concentrate) warfarin 10 mg tablet 10 mg PO .COMPLEX 07/19/20 01/14/25 History warfarin 7.5 mg tablet 7.5 mg PO .COMPLEX 07/19/20 01/14/25 History blood-glucose meter (OneTouch #1 ea 01/31/21 01/14/25 Rx Verio IQ Meter kit) lancets (OneTouch UltraSoft #200 ea 04/27/21 01/14/25 Rx Lancets) ascorbate calcium (vitamin C) 500 500 mg PO DAILY 06/07/21 01/14/25 History mg tablet pen needle, diabetic 32 gauge x #100 ea 07/24/21 01/14/25 Rx 5/32 (BD Ultra-Fine Kathleen Pen Needle) blood sugar diagnostic (OneTouch #100 ea 08/18/21 01/14/25 Rx Verio test strips) simvastatin 20 mg tablet 20 mg PO DAILY 08/13/22 01/14/25 History warfarin 2.5 mg tablet 2.5 mg PO .COMPLEX 11/13/22 01/14/25 History empagliflozin 25 mg tablet 25 mg PO DAILY #90 tabs 02/14/23 01/14/25 Rx (Jardiance) insulin aspar prot-insulin aspart 20 unit subcut BID 02/14/23 01/14/25 History 100 unit/mL (70-30) subcutaneous pen (Novolog Mix 70-30FlexPen U-100) tadalafil 20 mg tablet (Cialis) 20 mg PO DAILY PRN sexual activity 09/10/23 01/14/25 Rx #8 tabs metformin 500 mg tablet,extended See Rx Instructions .Route 05/29/24 01/14/25 Rx release 24 hr .COMPLEX #360 tabs semaglutide 2 mg/dose (8 mg/3 mL) 2 mg (0.75 mL) subcut WEEKLY #9 mL 09/10/24 01/14/25 Rx subcutaneous pen injector (Ozempic) ergocalciferol (vitamin D2) 1,250 1,250 mcg PO WEEKLY 14 weeks #14 10/19/24 01/14/25 Rx mcg (50,000 unit) capsule caps alprazolam 0.5 mg tablet 0.5 mg PO BID PRN anxiety #180 tabs 12/31/24 01/14/25 Rx Allergies Allergy/AdvReac Type Severity Reaction Status Date / Time grass pollen Allergy Mild Itching Verified 01/13/25 19:53 Vital Signs Vital Signs - 24 hr 01/13/25 19:49 01/13/25 22:25 01/14/25 00:51 Temperature 37.0 C 36.6 C Pulse Rate 104 H 97 102 H Respiratory Rate 18 18 18 Blood Pressure 146/92 H 148/92 H 138/95 H Pulse Oximetry 97 95 95 Oxygen Delivery Room Air Room Air 01/14/25 01:25 01/14/25 01:30 01/14/25 01:30 Temperature 36.8 C Pulse Rate 106 H Respiratory Rate 16 Blood Pressure 146/89 H Pulse Oximetry 97 Oxygen Delivery Room Air Room Air Exam Narrative: GENERAL: Well-appearing, well-nourished, and in no acute distress. HEAD: Normocephalic, atraumatic. EYES: EOMI. ENT: Nares clear, no rhinorrhea or epistaxis. Mucous membranes moist. NECK: Supple. CHEST: Clear to auscultation. No respiratory distress. HEART: Regular rate and rhythm. No murmur heard. Normal peripheral pulses. ABDOMEN: Soft, nontender, nondistended, normal active bowel sounds. Left CVA tenderness EXTREMITIES: Normal range of motion. No edema. SKIN: Warm, dry, no rash. NEURO: No focal deficits. Alert and oriented x3 H&P: Results Labs Labs: Short CBC 01/13/25 Range/Units 22:34 WBC 11.7 H (4.5-10.0) K/mm3 Hgb 14.9 (14.0-18.0) g/dL Hct 45.7 (42.0-52.0) % Plt Count 207 (150-375) k/mm3 BMP 01/13/25 22:34 Sodium 141 Potassium 4.3 Chloride 108 H Carbon Dioxide 23 BUN 18 Creatinine 1.33 H Glucose 137 H Calcium 9.7 Liver Function 01/13/25 Range/Units 22:34 Total Bilirubin 0.9 (0.2-1.3) mg/dL AST 39 (17-59) U/L ALT 28 (6-50) U/L Alkaline Phosphatase 66 (38-126) U/L Albumin 4.4 (3.5-5.1) g/dL Urine 01/13/25 Range/Units 20:04 Urine Color Yellow (Yellow) Urine Appearance Cloudy H (Clear) Urine pH 6.5 (5.0-9.0) Ur Specific [place] 1.021 (1.001-1.035) Urine Protein 1+ H (Negative) mg/dL Urine Glucose (UA) 3+ H (Negative) mg/dL Pulse Oximetry SpO2 results: 95-97% on room air Attestation: I personally reviewed and interpreted this pulse oximetry as f ollows: Interpretation: No need for supplemental oxygenation at this Imaging CT scan - abdomen: Radiologist's impression: CLINICAL INDICATION: Left flank and left lower quadrant pain COMPARISON: None. TECHNIQUE: Multiple contiguous axial images of the abdomen and pelvis were performed without the administration of intravenous contrast The dose-length product (DLP) was 1526.17 mGy-cm. Automated exposure control and iterative reconstruction technique were employed. FINDINGS/OBSERVATIONS: Visualized lower thorax: Bibasilar atelectasis. The remainder of the bilateral lung bases are clear The heart is borderline enlarged, with a small pericardial effusion. Small hiatal hernia is present. Liver: The liver demonstrates homogeneous attenuation and is not enlarged. Gallbladder and biliary system: The gallbladder is not visualized, presumably surgically absent. Pancreas: Limited evaluation of the pancreas secondary to the lack of intravenous contrast. Spleen: The spleen demonstrates homogeneous attenuation and is not enlarged. Kidneys: Moderate left-sided hydroureteronephrosis extending to the proximal left ureter where a 7.3 mm calculus is present. 3 mm nonobstructing calculus within the lower pole of the right kidney. No additional obstructing or nonobstructing stones within the left kidney. No right-sided hydronephrosis. Adrenal glands: Unremarkable. Gastrointestinal tract: Fecal stasis within the colon. Appendix: The air-filled appendix is of normal caliber (axial series, images 113 through 131) Vasculature: Calcified atherosclerotic disease. Lymph nodes: No pathologically enlarged or morphologically suspicious lymph nodes within the retroperitoneum or at the root of the mesentery. Pelvic structures: The bladder is distended, and otherwise unremarkable. The prostate gland is not enlarged. Body wall and musculoskeletal: Age-appropriate degenerative disease within the lower thoracic and lumbosacral spines. IMPRESSION: Moderate left-sided hydroureteronephrosis secondary to a 7.3 mm calculus in the proximal left ureter. Reviewed, dictated and finalized at location A. Assessment and Plan Assessment and plan (1) Acute UTI: Code(s): N39.0 - Urinary tract infection, site not specified Status: Acute Assessment and Plan: -Urinary frequency reported for 1 month -Subjective fever day of ER presentation (01/13) -UA with positive nitrates, 3+ leukocyte esterase, greater than 100 wbc's, 4+ urine bacteria -urine culture and blood cultures pending -no prior culture/sensitivities on file -found to left obstructing ureteral stone -Rocephin given in the emergency department and urology consulted -plan to go to the operating room on 01/14 for ureteral stent -patient anticoagulated on warfarin due to a history of atrial fibrillation -INR not checked in the emergency department, found to be 2.0 with AM labs on 01/14 (2) Calculus, ureteral: Code(s): N20.1 - Calculus of ureter Status: Acute Assessment and Plan: -7.3 mm obstructing left ureteral stone with concomitant UTI -Urology consulted will see in the morning (3) Type 2 diabetes mellitus: Qualifiers: Diabetes mellitus complication status: without complication Diabetes mellitus manager long term care insulin use: with manager long term care use Qualified Code(s): E11.9 - Type 2 diabetes mellitus without complications; Z79.4 - retirement (current) use of insulin Code(s): E11.9 - Type 2 diabetes mellitus without complications Status: Chronic Assessment and Plan: -A1c ordered -NPO for now with expected OR on 01/14 -ACHS fingerstick with high dose SSI ordered -Hold metformin while hospitalized -Lactic acid remained 2.1 on repeat, may be elevated due to metformin/diabetes rather than indication of sepsis -Lactic acid down to 1.5 on AM labs on 01/14 (4) Atrial fibrillation: Qualifiers: Atrial fibrillation type: permanent Qualified Code(s): I48.21 - Permanent atrial fibrillation Code(s): I48.91 - Unspecified atrial fibrillation Status: Chronic Assessment and Plan: -Pacer/Defib in place -Warfarin for anticoagulation -INR 2.0 on morning labs on 01/14, did not get warfarin on evening of 01/13 (5) Hypertension: Qualifiers: Hypertension type: essential hypertension Qualified Code(s): I10 - Essential (primary) hypertension Code(s): I10 - Essential (primary) hypertension Status: Chronic Assessment and Plan: -Blood pressure reviewed and stable/mildly elevated. -Resume home medications when appropriate -Ordered Coreg for morning of potential procedure (6) Anxiety: Code(s): F41.9 - Anxiety disorder, unspecified Status: Chronic Assessment and Plan: -Continue home medications when no longer NPO (7) Hyperlipidemia: Qualifiers: Hyperlipidemia type: unspecified Qualified Code(s): E78.5 - Hyperlipidemia, unspecified Code(s): E78.5 - Hyperlipidemia, unspecified Status: Chronic Assessment and Plan: -Chronic, continue simvastatin (8) History of [place] (myocardial infarction): Code(s): I25.2 - Old myocardial infarction Status: Chronic Assessment and Plan: -Noted (9) Cardiac defibrillator in place: Code(s): Z95.810 - Presence of automatic (implantable) cardiac defibrillator Status: Chronic Assessment and Plan: -Noted Quality VTE Prophylaxis VTE prophylaxis: mechanical ordered If No VTE Prophylaxis Answer both mechanical and pharmacologic: Reason no pharmacologic proph: medical contraindication (Going to the OR for u rologic stent, will need to resume warfarin whenever cleared by Urology) Hospitalist MIPS Advance Care Plan I have confirmed that the patient's Advanced Care Plan is present, code status is documented, or surrogate decision maker is listed in patient medical record.: Yes Medication Reconciliation I have utilized all available resources to obtain, update and review the patients current medications (includes all prescriptions, OTC, herbals, cannabis, and nutritional supplements).: Yes
[2025-01-14 06:00] LABS: Hematocrit 43.2 % (42.0-52.0); Hemoglobin 13.7 g/dL (14.0-18.0); Immature Granulocyte Percent A 0.6 % (0-0.5); Lymphocytes Absolute Auto 0.96 K/mm3 (0.9-3.2); Mean Corpuscular HGB Conc 31.7 g/dl (32-36); Mean Corpuscular Hemoglobin 29.6 pg (26-34); Mean Corpuscular Volume 93.3 fl (80-100); Nucleated Red Blood Cells Absolute Auto 0.000 K/mm3 (0.0-0.012); Nucleated Red Blood Cells Perc 0.0 % (0.0-0.2); Platelet Count Result 177 k/mm3 (150-375); Red Blood Count 4.63 M/mm3 (4.6-6.20); White Blood Count 12.5 K/mm3 (4.5-10.0)
[2025-01-14 06:11] LABS: INR 2.0; Prothrombin Time 21.8 Seconds (11.1-14.7)
[2025-01-14 06:18] LABS: Alanine Aminotransferase 23 U/L (6-50); Albumin Level 4.0 g/dL (3.5-5.1); Alkaline Phosphatase 57 U/L (38-126); Anion Gap 9 mmol/L (4-12); Aspartate Amino Transferase 34 U/L (17-59); Bilirubin,Total 0.9 mg/dL (0.2-1.3); Blood Urea Nitrogen 19 mg/dL (9-20); Calcium 8.8 mg/dL (8.4-10.2); Carbon Dioxide 22 mmol/L (22-30); Chloride 109 mmol/L (98-107); Estimated CRCL calculation 70 ml/min; Estimated Glomerular Filt Rate 56; Glucose 114 mg/dL (65-110); Magnesium 1.7 mg/dL (1.6-2.3); Potassium 4.0 mmol/L (3.4-5.0); Sodium 140 mmol/L (137-145); Total Protein 6.5 g/dL (6.3-8.2)
[2025-01-14 06:19] LABS: CRP. 1.7 mg/dL (<1.0)
[2025-01-14] MEDS: MORPHINE SULFATE (*CRX) 4 MG/ML INJ IV PUSH ×2 (06:19→09:50)
--- NOTE | 2025-01-14 06:28 | ECG_ITS ---
Test Date: 2025-01-14 08:56:14 Measurements Intervals [place] Rate: 107 P: 91 CO: 83 QRS: 217 QRSD: 157 T: 76 QT: 367 QTc: 492 Interpretive Statements ELECTRONIC VENTRICULAR PACEMAKER UNDERLYING PROBABLY ATRIAL TACHYCARDIA NO FURTHER INTERPRETATION IS POSSIBLE ABNORMAL ECG No previous ECG available for comparison Electronically Signed On 01-14-2025 09:16:39 CDT by Jose Manuel Gatica D.O.
[2025-01-14 06:32] LABS: Procalcitonin. 0.2 ng/mL
--- NOTE | 2025-01-14 06:55 | P.CONUR_ITS ---
Assessment and Plan Assessment and plan (1) Calculus, ureteral: Code(s): N20.1 - Calculus of ureter Status: Acute (2) Acute UTI: Code(s): N39.0 - Urinary tract infection, site not specified Status: Acute Assessment and Plan: * Cystoscopy with left ureteral stent placement today * Definitive stone management with either ESWL or ureteroscopy as outpatient once his infection has been thoroughly treated. Urology Consult Note HPI Date Seen: 01/14/25 Requesting Physician: Shayna Castellano MD Primary Care Provider: Robert Jo APRN Consult Narrative Narrative: Christos Gamboa is a 64 year old male spontaneously passed a kidney stone 20 years ago. Presents to the emergency department last night with a several week history of irritable voiding and then sudden onset left flank pain with subjective fever. He denied nausea vomiting or hematuria. Imaging demonstrates a obstructing 7 mm left proximal ureteral stone. Laboratory data, including urinalysis, suggest concurrent urinary tract infection. He has been started on ceftriaxone and admitted. Review of Systems 2 Review of Systems: All systems reviewed & are unremarkable except as noted in HPI and below PMFSH Past Medical History Medical History COVID Type 2 diabetes mellitus Other fatigue CAD (coronary artery disease) Hyperlipidemia Hypertension Obesity (BMI 35.0-39.9 without comorbidity) Anxiety History of [place] (myocardial infarction) Heart disease Surgical History Surgical History History of heart artery stent Cardiac defibrillator in place Family History Family History Father Heart disease Acute myocardial infarction Mother No known problems Acute myocardial infarction Sibling Heart disease Asthma Social History Social History Smoking packs per day: 1 Smoking cigarettes per day: 20.0 Years smoked: 20 Smoking pack-years: 20.00 Smoking status: Former smoker Second hand tobacco smoke exposure: Yes Smoking end date: 07/22/04 Alcohol intake: never Substance use: never Substance use type: does not use Do You Feel Safe in your Home?: Yes Lack of Transportation: No Lack of Food: Never True Current Housing: I Have Housing Concerned About Future Housing: No Difficulty Paying Gas/Electric Bills: No Difficulty Paying for Meds: No Currently Unemployed: No Education: High School Diploma/GED Difficulty w/ Childcare or Family Care: No Living arrangements: with family 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 Gender identity (if verbalized by the patient): Male Spiritual care concerns: No Meds Home Medications and Allergies Home Medications ?Medication ?Instructions ?Recorded ?Confirmed ?Type aspirin 81 mg tablet,delayed 81 mg PO DAILY 07/19/20 01/14/25 History release carvedilol 6.25 mg tablet 6.25 mg PO Q12H 07/19/20 01/14/25 History furosemide 40 mg tablet 40 mg PO QAM 07/19/20 01/14/25 History lisinopril 10 mg tablet 10 mg PO DAILY 07/19/20 01/14/25 History mecobalamin (vitamin B12) 1,000 1,000 mcg PO DAILY 07/19/20 01/14/25 History mcg chewable tablet multivitamin 1 tablet PO DAILY 07/19/20 01/14/25 History omega-3 fatty acids 1,000 mg 1,000 mg PO DAILY 07/19/20 01/14/25 History capsule (Fish Oil Concentrate) warfarin 10 mg tablet 10 mg PO .COMPLEX 07/19/20 01/14/25 History warfarin 7.5 mg tablet 7.5 mg PO .COMPLEX 07/19/20 01/14/25 History blood-glucose meter (OneTouch #1 ea 01/31/21 01/14/25 Rx Verio IQ Meter kit) lancets (OneTouch UltraSoft #200 ea 04/27/21 01/14/25 Rx Lancets) ascorbate calcium (vitamin C) 500 500 mg PO DAILY 06/07/21 01/14/25 History mg tablet pen needle, diabetic 32 gauge x #100 ea 07/24/21 01/14/25 Rx 5/32 (BD Ultra-Fine Kathleen Pen Needle) blood sugar diagnostic (OneTouch #100 ea 08/18/21 01/14/25 Rx Verio test strips) simvastatin 20 mg tablet 20 mg PO DAILY 08/13/22 01/14/25 History warfarin 2.5 mg tablet 2.5 mg PO .COMPLEX 11/13/22 01/14/25 History empagliflozin 25 mg tablet 25 mg PO DAILY #90 tabs 02/14/23 01/14/25 Rx (Jardiance) insulin aspar prot-insulin aspart 20 unit subcut BID 02/14/23 01/14/25 History 100 unit/mL (70-30) subcutaneous pen (Novolog Mix 70-30FlexPen U-100) tadalafil 20 mg tablet (Cialis) 20 mg PO DAILY PRN sexual activity 09/10/23 01/14/25 Rx #8 tabs metformin 500 mg tablet,extended See Rx Instructions .Route 05/29/24 01/14/25 Rx release 24 hr .COMPLEX #360 tabs semaglutide 2 mg/dose (8 mg/3 mL) 2 mg (0.75 mL) subcut WEEKLY #9 mL 09/10/24 01/14/25 Rx subcutaneous pen injector (Ozempic) ergocalciferol (vitamin D2) 1,250 1,250 mcg PO WEEKLY 14 weeks #14 10/19/24 01/14/25 Rx mcg (50,000 unit) capsule caps alprazolam 0.5 mg tablet 0.5 mg PO BID PRN anxiety #180 tabs 12/31/24 01/14/25 Rx Allergies Allergy/AdvReac Type Severity Reaction Status Date / Time grass pollen Allergy Mild Itching Verified 01/13/25 19:53 Vital Signs Vital Signs - 24 hr 01/13/25 19:49 01/13/25 22:25 01/14/25 00:51 Temperature 98.6 F 97.8 F Pulse Rate 104 H 97 102 H Respiratory Rate 18 18 18 Blood Pressure 146/92 H 148/92 H 138/95 H Pulse Oximetry 97 95 95 Oxygen Delivery Room Air Room Air 01/14/25 01:25 01/14/25 01:30 01/14/25 01:30 Temperature 98.2 F Pulse Rate 106 H Respiratory Rate 16 Blood Pressure 146/89 H Pulse Oximetry 97 Oxygen Delivery Room Air Room Air Exam 2 Const: General: no acute distress Resp: Effort & Inspection: normal respiratory effort GI: Inspection: non-distended GI Palp: No abdominal tenderness and No Guarding due to palpation present (GI) Auscultation: normal bowel sounds Results Labs 01/14/25 05:54 01/14/25 05:54 Labs: Short CBC 01/13/25 01/14/25 Range/Units 22:34 05:54 WBC 11.7 H 12.5 H (4.5-10.0) K/mm3 Hgb 14.9 13.7 L (14.0-18.0) g/dL Hct 45.7 43.2 (42.0-52.0) % Plt Count 207 177 (150-375) k/mm3 BMP 01/13/25 01/14/25 22:34 05:54 Sodium 141 140 Potassium 4.3 4.0 Chloride 108 H 109 H Carbon Dioxide 23 22 BUN 18 19 Creatinine 1.33 H 1.28 Glucose 137 H 114 H Calcium 9.7 8.8 Liver Function 01/13/25 01/14/25 Range/Units 22:34 05:54 Total Bilirubin 0.9 0.9 (0.2-1.3) mg/dL AST 39 34 (17-59) U/L ALT 28 23 (6-50) U/L Alkaline Phosphatase 66 57 (38-126) U/L Albumin 4.4 4.0 (3.5-5.1) g/dL Urine 01/13/25 Range/Units 20:04 Urine Color Yellow (Yellow) Urine Appearance Cloudy H (Clear) Urine pH 6.5 (5.0-9.0) Ur Specific [place] 1.021 (1.001-1.035) Urine Protein 1+ H (Negative) mg/dL Urine Glucose (UA) 3+ H (Negative) mg/dL
--- NOTE | 2025-01-14 06:57 | WPDHPUPDATE1 ---
History and Physical Update Update Date/Time: 01/14/25 06:57 History and Physical has been reviewed, including an updated exam of the patient. There are NO changes in the patient's condition. Risks, benefits, and alternatives have been discussed and questions answered. Patient agrees to proceed with procedure.
[2025-01-14 08:27] LABS: Hemoglobin A1C. 6.1 % (<5.7)
--- NOTE | 2025-01-14 12:39 | P.PNAN_ITS ---
Anes - Initial Pre Proc Eval Procedure: Operation Date: 01/14/25 13:45 Proposed Procedures p Cystoscopy, Left Stent Placement(Left) - Grabiel Odonnell MD Date/Time: 01/14/25 12:39 Surgeon: Belle Pre Op Diagnosis: Left ureteral stone, UTI Patient Data Age: 64 Gender: M Height: 1.85 m Weight: 119.2 kg Last Vital Signs Temp 36.7 C 01/14/25 11:51 Pulse 110 H 01/14/25 11:51 Resp 14 01/14/25 11:51 BP 127/74 01/14/25 11:51 Pulse Ox 92 01/14/25 12:05 O2 Del Method Room Air 01/14/25 12:05 Allergies Allergy/AdvReac Type Severity Reaction Status Date / Time grass pollen Allergy Mild Itching Verified 01/13/25 19:53 Home Medications ?Medication ?Instructions ?Recorded ?Confirmed ?Type aspirin 81 mg tablet,delayed 81 mg PO DAILY 07/19/20 01/14/25 History release carvedilol 6.25 mg tablet 6.25 mg PO Q12H 07/19/20 01/14/25 History furosemide 40 mg tablet 40 mg PO QAM 07/19/20 01/14/25 History lisinopril 10 mg tablet 10 mg PO DAILY 07/19/20 01/14/25 History mecobalamin (vitamin B12) 1,000 1,000 mcg PO DAILY 07/19/20 01/14/25 History mcg chewable tablet multivitamin 1 tablet PO DAILY 07/19/20 01/14/25 History omega-3 fatty acids 1,000 mg 1,000 mg PO DAILY 07/19/20 01/14/25 History capsule (Fish Oil Concentrate) warfarin 10 mg tablet 10 mg PO .COMPLEX 07/19/20 01/14/25 History warfarin 7.5 mg tablet 7.5 mg PO .COMPLEX 07/19/20 01/14/25 History blood-glucose meter (OneTouch #1 ea 01/31/21 01/14/25 Rx Verio IQ Meter kit) lancets (OneTouch UltraSoft #200 ea 04/27/21 01/14/25 Rx Lancets) ascorbate calcium (vitamin C) 500 500 mg PO DAILY 06/07/21 01/14/25 History mg tablet pen needle, diabetic 32 gauge x #100 ea 07/24/21 01/14/25 Rx 5/32 (BD Ultra-Fine Kathleen Pen Needle) blood sugar diagnostic (OneTouch #100 ea 08/18/21 01/14/25 Rx Verio test strips) simvastatin 20 mg tablet 20 mg PO DAILY 08/13/22 01/14/25 History warfarin 2.5 mg tablet 2.5 mg PO .COMPLEX 11/13/22 01/14/25 History empagliflozin 25 mg tablet 25 mg PO DAILY #90 tabs 02/14/23 01/14/25 Rx (Jardiance) insulin aspar prot-insulin aspart 20 unit subcut BID 02/14/23 01/14/25 History 100 unit/mL (70-30) subcutaneous pen (Novolog Mix 70-30FlexPen U-100) tadalafil 20 mg tablet (Cialis) 20 mg PO DAILY PRN sexual activity 09/10/23 01/14/25 Rx #8 tabs metformin 500 mg tablet,extended See Rx Instructions .Route 05/29/24 01/14/25 Rx release 24 hr .COMPLEX #360 tabs semaglutide 2 mg/dose (8 mg/3 mL) 2 mg (0.75 mL) subcut WEEKLY #9 mL 09/10/24 01/14/25 Rx subcutaneous pen injector (Ozempic) ergocalciferol (vitamin D2) 1,250 1,250 mcg PO WEEKLY 14 weeks #14 10/19/24 01/14/25 Rx mcg (50,000 unit) capsule caps alprazolam 0.5 mg tablet 0.5 mg PO BID PRN anxiety #180 tabs 12/31/24 01/14/25 Rx Laboratory Tests 01/13/25 01/13/25 01/13/25 20:04 22:34 22:37 WBC 11.7 H K/mm3 (4.5-10.0) RBC 4.99 M/mm3 (4.6-6.20) Hgb 14.9 g/dL (14.0-18.0) Hct 45.7 % (42.0-52.0) MCV 91.6 fl (80-100) MCH 29.9 pg (26-34) MCHC 32.6 g/dl (32-36) RDW 14.7 H % (11.5-14.5) Plt Count 207 k/mm3 (150-375) MPV 10.6 H fl (7.4-10.4) Immature Gran % (Auto) 0.6 H % (0-0.5) Neut % (Auto) 78.3 H % (45.5-73.1) Lymph % (Auto) 10.2 L % (18.3-44.2) Owen % (Auto) 9.4 H % (2.6-8.5) Eos % (Auto) 1.1 % (0-4.4) Baso % (Auto) 0.4 % (0.2-1.2) Lymph # (Auto) 1.19 K/mm3 (0.9-3.2) Owen # (Auto) 1.1 H K/mm3 (0.1-0.6) Eos # (Auto) 0.1 K/mm3 (0-0.3) Baso # (Auto) 0.1 K/mm3 (0.0-0.1) Abs Immat Gran (auto) 0.07 H K/mm3 (0.00-0.031) Absolute Neuts (auto) 9.1 H K/mm3 (1.3-6.7) Absolute Nucleated RBC 0.000 K/mm3 (0.0-0.012) Nucleated RBC % 0.0 % (0.0-0.2) ESR PT INR Sodium 141 mmol/L (137-145) Potassium 4.3 mmol/L (3.4-5.0) Chloride 108 H mmol/L (98-107) Carbon Dioxide 23 mmol/L (22-30) Anion Gap 10 mmol/L (4-12) BUN 18 mg/dL (9-20) Creatinine 1.33 H mg/dL (0.7-1.3) Estim Creat Clear Calc Not Reportable Estimated GFR 54 L (59 - ) Glucose 137 H mg/dL (65-110) POC Capillary Glucose Hemoglobin A1c Lactic Acid Calcium 9.7 mg/dL (8.4-10.2) Phosphorus Magnesium Total Bilirubin 0.9 mg/dL (0.2-1.3) AST 39 U/L (17-59) ALT 28 U/L (6-50) Alkaline Phosphatase 66 U/L (38-126) C-Reactive Protein Total Protein 7.3 g/dL (6.3-8.2) Albumin 4.4 g/dL (3.5-5.1) Lipase 361 H U/L (23-300) Procalcitonin Urine Color Yellow (Yellow) Urine Appearance Cloudy H (Clear) Urine pH 6.5 (5.0-9.0) Ur Specific [place] 1.021 (1.001-1.035) Urine Protein 1+ H mg/dL (Negative) Urine Glucose (UA) 3+ H mg/dL (Negative) Urine Ketones Trace H mg/dL (Negative) Ur Blood (Man) 1+ H (Negative) Urine Nitrate Positive H (Negative) Urine Bilirubin Negative (Negative) Urine Urobilinogen 1.0 mg/dL (<2.0) Leukocyte Esterase Rfl 3+ H WILLIAMS/UL (Negative) Urine RBC 0-2 /hpf (0-2) Urine WBC >100 H /hpf (0-3) Ur Squamous Epith Cells None seen /hpf (Few) Urine Bacteria 4+ H /hpf Urine Casts 0-2 01/13/25 01/14/25 01/14/25 23:58 02:13 05:54 WBC 12.5 H K/mm3 (4.5-10.0) RBC 4.63 M/mm3 (4.6-6.20) Hgb 13.7 L g/dL (14.0-18.0) Hct 43.2 % (42.0-52.0) MCV 93.3 fl (80-100) MCH 29.6 pg (26-34) MCHC 31.7 L g/dl (32-36) RDW 14.9 H % (11.5-14.5) Plt Count 177 k/mm3 (150-375) MPV 10.4 fl (7.4-10.4) Immature Gran % (Auto) 0.6 H % (0-0.5) Neut % (Auto) 80.8 H % (45.5-73.1) Lymph % (Auto) 7.7 L % (18.3-44.2) Owen % (Auto) 10.0 H % (2.6-8.5) Eos % (Auto) 0.5 % (0-4.4) Baso % (Auto) 0.4 % (0.2-1.2) Lymph # (Auto) 0.96 K/mm3 (0.9-3.2) Owen # (Auto) 1.2 H K/mm3 (0.1-0.6) Eos # (Auto) 0.1 K/mm3 (0-0.3) Baso # (Auto) 0.1 K/mm3 (0.0-0.1) Abs Immat Gran (auto) 0.07 H K/mm3 (0.00-0.031) Absolute Neuts (auto) 10.1 H K/mm3 (1.3-6.7) Absolute Nucleated RBC 0.000 K/mm3 (0.0-0.012) Nucleated RBC % 0.0 % (0.0-0.2) ESR 10 mm/hr (0-20) PT 21.8 H Seconds (11.1-14.7) INR 2.0 Sodium 140 mmol/L (137-145) Potassium 4.0 mmol/L (3.4-5.0) Chloride 109 H mmol/L (98-107) Carbon Dioxide 22 mmol/L (22-30) Anion Gap 9 mmol/L (4-12) BUN 19 mg/dL (9-20) Creatinine 1.28 mg/dL (0.7-1.3) Estim Creat Clear Calc 70 ml/min Estimated GFR 56 L (59 - ) Glucose 114 H mg/dL (65-110) POC Capillary Glucose Hemoglobin A1c 6.1 H % (<5.7) Lactic Acid 2.1 H mmol/L 2.1 H mmol/L 1.5 mmol/L (0.7-2.0) (0.7-2.0) (0.7-2.0) Calcium 8.8 mg/dL (8.4-10.2) Phosphorus 3.3 mg/dL (2.5-4.5) Magnesium 1.7 mg/dL (1.6-2.3) Total Bilirubin 0.9 mg/dL (0.2-1.3) AST 34 U/L (17-59) ALT 23 U/L (6-50) Alkaline Phosphatase 57 U/L (38-126) C-Reactive Protein 1.7 H mg/dL (<1.0) Total Protein 6.5 g/dL (6.3-8.2) Albumin 4.0 g/dL (3.5-5.1) Lipase Procalcitonin 0.2 ng/mL Urine Color Urine Appearance Urine pH Ur Specific [place] Urine Protein Urine Glucose (UA) Urine Ketones Ur Blood (Man) Urine Nitrate Urine Bilirubin Urine Urobilinogen Leukocyte Esterase Rfl Urine RBC Urine WBC Ur Squamous Epith Cells Urine Bacteria Urine Casts 01/14/25 01/14/25 07:54 11:11 WBC RBC Hgb Hct MCV MCH MCHC RDW Plt Count MPV Immature Gran % (Auto) Neut % (Auto) Lymph % (Auto) Owen % (Auto) Eos % (Auto) Baso % (Auto) Lymph # (Auto) Owen # (Auto) Eos # (Auto) Baso # (Auto) Abs Immat Gran (auto) Absolute Neuts (auto) Absolute Nucleated RBC Nucleated RBC % ESR PT INR Sodium Potassium Chloride Carbon Dioxide Anion Gap BUN Creatinine Estim Creat Clear Calc Estimated GFR Glucose POC Capillary Glucose 135 H mg/dl 118 H mg/dl (65-105) (65-105) Hemoglobin A1c Lactic Acid Calcium Phosphorus Magnesium Total Bilirubin AST ALT Alkaline Phosphatase C-Reactive Protein Total Protein Albumin Lipase Procalcitonin Urine Color Urine Appearance Urine pH Ur Specific [place] Urine Protein Urine Glucose (UA) Urine Ketones Ur Blood (Man) Urine Nitrate Urine Bilirubin Urine Urobilinogen Leukocyte Esterase Rfl Urine RBC Urine WBC Ur Squamous Epith Cells Urine Bacteria Urine Casts Patient hx anesthesia problems: none Family hx anesthesia problems: none Results Review: All pre-operative results and documents have been reviewed as part of the pre- operative evaluation. [facility] Past Medical History Medical History COVID Type 2 diabetes mellitus Other fatigue CAD (coronary artery disease) Hyperlipidemia Hypertension Obesity (BMI 35.0-39.9 without comorbidity) Anxiety History of NV (myocardial infarction) Heart disease Surgical History Surgical History History of heart artery stent Cardiac defibrillator in place Family History Family History Father Heart disease Acute myocardial infarction Mother No known problems Acute myocardial infarction Sibling Heart disease Asthma Social History Social History Smoking packs per day: 1 Smoking cigarettes per day: 20.0 Years smoked: 20 Smoking pack-years: 20.00 Smoking status: Former smoker Second hand tobacco smoke exposure: Yes Smoking end date: 07/22/04 Alcohol intake: never Substance use: never Substance use type: does not use Do You Feel Safe in your Home?: Yes Lack of Transportation: No Lack of Food: Never True Current Housing: I Have Housing Concerned About Future Housing: No Difficulty Paying Gas/Electric Bills: No Difficulty Paying for Meds: No Currently Unemployed: No Education: High School Diploma/GED Difficulty w/ Childcare or Family Care: No Living arrangements: with family 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 Gender identity (if verbalized by the patient): Male Spiritual care concerns: No Anes - Eval Final PreProcedure Day of Procedure 01/14/25 12:39 Patient weight: obese Heart: regular rate and rhythm Lungs: clear to auscultation Airway: Mallampati scale class II Neurological: alert and oriented Last oral intake: >/= 8 hours ASA classification: IV Emergent: no Anesthetic plan: proceed Anesthesia type and monitoring: general LMA and standard monitoring Results Review: All pre-operative results and documents have been reviewed as part of the pre- operative evaluation. Informed Consent: The patient's anesthetic plan and its attendant risks and benefits were discussed with the patient/family/POA. Questions were solicited and answers provided to the satisfaction of the patient/family/POA.
[2025-01-14] MEDS: LACTATED RINGERS 1,000 ML 30 ML IV CONT (12:40)
[2025-01-14] MEDS: LIDOCAINE 2% GEL UROJET 10 ML PKG MUCOUS MEM (13:15)
--- NOTE | 2025-01-14 13:21 | W.PM.PROC2 ---
Procedure Note - Detailed Date of Procedure 01/14/25 Pre-op Diagnosis Left ureteral stone, UTI Post-op Diagnosis Same Procedure Performed Cystoscopy, left retrograde pyelography, left ureteral stent placement Surgeon Grabiel Odonnell MD Anesthesia General Description of Procedure The patient is brought to the operative suite where he is prepped and draped in a routine sterile fashion while in the dorsal lithotomy position. 2% lidocaine jelly was introduced in the urethra and allowed to stand for an appropriate period of time. Systemic sedation was administered by the anesthesia department. Cystoscopy was undertaken with a 21 F rigid cystoscope. The bladder neck and urethra were endoscopically normal. There were no urethral strictures. The prostatic urethral estimated length was 1.5cm. There was mild obstruction of the prostatic urethra with no median lobe. The bladder mucosa was normal without hyperemia. There was no intravesical foreign body or neoplasm. He had a single orthoptic ureteral orifice bilaterally. There was clear efflux from each ureteral orifice. An [employer] ureteral catheter was used to obtain left retrograde pyelogram. There was no hydronephrosis, obstruction, filling defects, stones or other identifiable pathology in the ureter or collecting system bilaterally. A 0.035 in glidewire was advanced in the left renal pelvis and a 4.8 F variable length stent was positioned appropriately. At this point the cystoscope was removed and the patient was taken recovery room good condition. Drains Yes Packing No Pathology None sent Complications No immediate complications
--- NOTE | 2025-01-14 14:23 | PM.IMPN ---
Progress Note: A&P Assessment and Plan (1) Acute UTI: Code(s): N39.0 - Urinary tract infection, site not specified Status: Acute Assessment and Plan: -on ct pt found to left obstructing ureteral stone -patient anticoagulated on warfarin due to a history of atrial fibrillation -INR not checked in the emergency department, found to be 2.0 with AM labs on 01/14 - plan rpt inr this am and pt ok to have cystoscopy and left ureteral stent placement - continue iv fluids and iv rocephin - await uc (2) Calculus, ureteral: Code(s): N20.1 - Calculus of ureter Status: Acute Assessment and Plan: -7.3 mm obstructing left ureteral stone with concomitant UTI -Urology consulted will put in stent today keep npo (3) Type 2 diabetes mellitus: Qualifiers: Diabetes mellitus complication status: without complication Diabetes mellitus long chain beamer insulin use: with long chain beamer use Qualified Code(s): E11.9 - Type 2 diabetes mellitus without complications; Z79.4 - snf (current) use of insulin Code(s): E11.9 - Type 2 diabetes mellitus without complications Status: Chronic Assessment and Plan: -accuchecks, ssi (4) Atrial fibrillation: Qualifiers: Atrial fibrillation type: permanent Qualified Code(s): I48.21 - Permanent atrial fibrillation Code(s): I48.91 - Unspecified atrial fibrillation Status: Chronic Assessment and Plan: -Pacer/Defib in place -coumadin for anticoagulation -hold coumadin (5) Hypertension: Qualifiers: Hypertension type: essential hypertension Qualified Code(s): I10 - Essential (primary) hypertension Code(s): I10 - Essential (primary) hypertension Status: Chronic Assessment and Plan: -Blood pressure reviewed and stable/mildly elevated. -continue home coreg (6) Anxiety: Code(s): F41.9 - Anxiety disorder, unspecified Status: Chronic Assessment and Plan: -Continue home medications (7) Hyperlipidemia: Qualifiers: Hyperlipidemia type: unspecified Qualified Code(s): E78.5 - Hyperlipidemia, unspecified Code(s): E78.5 - Hyperlipidemia, unspecified Status: Chronic Assessment and Plan: -Chronic, continue simvastatin (8) History of IA (myocardial infarction): Code(s): I25.2 - Old myocardial infarction Status: Chronic Assessment and Plan: -chronic and stable (9) Cardiac defibrillator in place: Code(s): Z95.810 - Presence of automatic (implantable) cardiac defibrillator Status: Chronic Assessment and Plan: -chronic and stable Subjective Date/time seen: 01/14/25 14:23 Interval history: 64 year old man admitted with urinary frequency for 1 month found to have nausea and fever ct abdo and pelvis shows obstructing left ureteral stone and hydronephrosis, ua is positive, urology md consulted for left ureteral stone placement pt is currently npo Review of Systems Review of Systems: ongoing flank pain Exam Narrative: GENERAL: middle aged pain mild distress in left flank ENT: Nares clear, no rhinorrhea or epistaxis. Mucous membranes moist. NECK: Supple. CHEST: Clear to auscultation. No respiratory distress. HEART: Regular rate and rhythm. No murmur heard. Normal peripheral pulses. ABDOMEN: Soft, nontender, nondistended, normal active bowel sounds. Left CVA tenderness EXTREMITIES: Normal range of motion. No edema. SKIN: Warm, dry, no rash. NEURO: No focal deficits. Alert and oriented x3 Objective Data Vital Signs Vital Signs: Vital Signs - 24 hr 01/13/25 19:49 01/13/25 22:25 01/14/25 00:51 Temperature 37.0 C 36.6 C Pulse Rate 104 H 97 102 H Respiratory Rate 18 18 18 Blood Pressure 146/92 H 148/92 H 138/95 H Pulse Oximetry 97 95 95 Oxygen Delivery Room Air Room Air Oxygen Flow Rate 01/14/25 01:25 01/14/25 01:30 01/14/25 01:30 Temperature 36.8 C Pulse Rate 106 H Respiratory Rate 16 Blood Pressure 146/89 H Pulse Oximetry 97 Oxygen Delivery Room Air Room Air Oxygen Flow Rate 01/14/25 08:00 01/14/25 08:00 01/14/25 09:45 Temperature 36.4 C Pulse Rate 107 H 107 H Respiratory Rate 16 Blood Pressure 107/66 Pulse Oximetry 92 Oxygen Delivery Room Air Oxygen Flow Rate 01/14/25 11:51 01/14/25 12:05 01/14/25 12:25 Temperature 36.7 C 37.7 C H Pulse Rate 110 H 111 H Respiratory Rate 14 18 Blood Pressure 127/74 137/77 Pulse Oximetry 94 92 99 Oxygen Delivery Room Air Room Air Oxygen Flow Rate 01/14/25 13:26 01/14/25 13:40 01/14/25 13:43 Temperature 37.6 C H Pulse Rate 98 105 H 109 H Respiratory Rate 18 18 16 Blood Pressure 101/66 121/86 Pulse Oximetry 92 98 98 Oxygen Delivery Simple Face Mask Simple Face Mask Simple Face Mask Oxygen Flow Rate 12 12 12 01/14/25 13:58 01/14/25 14:05 01/14/25 14:15 Temperature 36.9 C Pulse Rate 108 H 107 H 110 H Respiratory Rate 14 18 14 Blood Pressure 123/76 125/80 125/80 Pulse Oximetry 94 94 94 Oxygen Delivery Nasal Cannula Nasal Cannula Nasal Cannula Oxygen Flow Rate 2 2 2 Intake/Output Intake/Output: Intake & Output 01/11/25 01/12/25 01/13/25 01/14/25 23:59 23:59 23:59 23:59 Intake Total 2049 Balance 2049 Meds/Results Medications: Active Medications Generic Name Dose Route Start Last Admin Trade Name Freq PRN Reason Stop Dose Admin Alprazolam 0.5 mg 01/14/25 04:35 Alprazolam (*Crx) 0.5 Mg Tablet PO BID PRN anxiety Carvedilol 6.25 mg 01/14/25 09:00 01/14/25 09:45 Carvedilol 6.25 Mg Tablet PO 6.25 mg Q12HR AB Administration Dextrose 12.5 gm 01/14/25 06:14 Dextrose 50% 25 Gm/50 Ml Syringe IV PUSH PRN PRN Hypoglycemia Protocol Fentanyl Citrate 25 mcg 01/14/25 12:40 Fentanyl Citrate Inj (*Crx) 100 Mcg/2 Ml Vial IV PUSH Q2M PRN Pain Glucagon 1 mg 01/14/25 06:14 Glucagon For Inj 1 Mg Vial IM PRN PRN Hypoglycemia Protocol Glucose 15 gm 01/14/25 06:14 Glucose Oral Gel 15 Gm Of Glucse In 37.5 Gm Tube PO PRN PRN Hypoglycemia Protocol Hydromorphone HCl 0.5 mg 01/13/25 23:43 01/14/25 06:58 Hydromorphone Hcl Inj (*Crx) 2 Mg/Ml Vial IV PUSH 0.25 mg Q4H PRN Administration Pain Rated 7-10 Ceftriaxone Sodium 1 gm in 50 mls @ 100 mls/hr 01/14/25 23:00 Rocephin 1 Gm/Ns 50 Ml IVPB Q24H AB Sodium Chloride 1,000 mls @ 125 mls/hr 01/13/25 23:45 01/14/25 10:40 Normal Saline Iv IV CONT 125 mls/hr .Q8H AB Administration Dextrose 1,000 mls @ 100 mls/hr 01/14/25 06:14 Dextrose 5% 1,000 Ml IVPB PRN PRN Hypoglycemia Protocol Lactated Ringer's 1,000 mls @ 30 mls/hr 01/14/25 12:40 01/14/25 13:26 Lr - Lactated Ringers Iv IV CONT 30 mls/hr .Q24H AB Infusion Lactated Ringer's 1,000 mls @ 30 mls/hr 01/14/25 12:40 Lr - Lactated Ringers Iv IV CONT .Q24H ON LICENSE OF [facility] Insulin Aspart 4 - 8 units 01/14/25 08:00 01/14/25 13:57 Insulin Aspart (*Bkc) 100 Units/Ml SUB-Q Not Given TIDWM ON LICENSE OF [facility] Protocol Morphine Sulfate 4 mg 01/13/25 23:43 01/14/25 09:50 Morphine Sulfate (*Crx) 4 Mg/Ml Inj IV PUSH 4 mg Q2H PRN Administration Pain Rated 7-10 Ondansetron HCl 4 mg 01/13/25 23:43 Ondansetron Inj 4 Mg/2 Ml Vial IV PUSH Q4H PRN Nausea Ondansetron HCl 4 mg 01/14/25 12:40 Ondansetron Inj 4 Mg/2 Ml Vial IV PUSH ONCE PRN Nausea Radiology Results: ITS Impressions Abdomen/Pelvis CT 01/13/25 23:00 IMPRESSION: Moderate left-sided hydroureteronephrosis secondary to a 7.3 mm calculus in the proximal left ureter. Labs Labs: Laboratory Results - last 24 hr 01/13/25 01/13/25 01/13/25 20:04 22:34 22:37 WBC 11.7 H RBC 4.99 Hgb 14.9 Hct 45.7 MCV 91.6 MCH 29.9 MCHC 32.6 RDW 14.7 H Plt Count 207 MPV 10.6 H Immature Gran % (Auto) 0.6 H Neut % (Auto) 78.3 H Lymph % (Auto) 10.2 L Garza % (Auto) 9.4 H Eos % (Auto) 1.1 Baso % (Auto) 0.4 Lymph # (Auto) 1.19 Garza # (Auto) 1.1 H Eos # (Auto) 0.1 Baso # (Auto) 0.1 Abs Immat Gran (auto) 0.07 H Absolute Neuts (auto) 9.1 H Absolute Nucleated RBC 0.000 Nucleated RBC % 0.0 ESR PT INR Sodium 141 Potassium 4.3 Chloride 108 H Carbon Dioxide 23 Anion Gap 10 BUN 18 Creatinine 1.33 H Estim Creat Clear Calc Not Reportable Estimated GFR 54 L Glucose 137 H POC Capillary Glucose Hemoglobin A1c Lactic Acid Calcium 9.7 Phosphorus Magnesium Total Bilirubin 0.9 AST 39 ALT 28 Alkaline Phosphatase 66 C-Reactive Protein Total Protein 7.3 Albumin 4.4 Lipase 361 H Procalcitonin Urine Color Yellow Urine Appearance Cloudy H Urine pH 6.5 Ur Specific [place] 1.021 Urine Protein 1+ H Urine Glucose (UA) 3+ H Urine Ketones Trace H Ur Blood (Man) 1+ H Urine Nitrate Positive H Urine Bilirubin Negative Urine Urobilinogen 1.0 Leukocyte Esterase Rfl 3+ H Urine RBC 0-2 Urine WBC >100 H Ur Squamous Epith Cells None seen Urine Bacteria 4+ H Urine Casts 0-2 01/13/25 01/14/25 01/14/25 23:58 02:13 05:54 WBC 12.5 H RBC 4.63 Hgb 13.7 L Hct 43.2 MCV 93.3 MCH 29.6 MCHC 31.7 L RDW 14.9 H Plt Count 177 MPV 10.4 Immature Gran % (Auto) 0.6 H Neut % (Auto) 80.8 H Lymph % (Auto) 7.7 L Garza % (Auto) 10.0 H Eos % (Auto) 0.5 Baso % (Auto) 0.4 Lymph # (Auto) 0.96 Garza # (Auto) 1.2 H Eos # (Auto) 0.1 Baso # (Auto) 0.1 Abs Immat Gran (auto) 0.07 H Absolute Neuts (auto) 10.1 H Absolute Nucleated RBC 0.000 Nucleated RBC % 0.0 ESR 10 PT 21.8 H INR 2.0 Sodium 140 Potassium 4.0 Chloride 109 H Carbon Dioxide 22 Anion Gap 9 BUN 19 Creatinine 1.28 Estim Creat Clear Calc 70 Estimated GFR 56 L Glucose 114 H POC Capillary Glucose Hemoglobin A1c 6.1 H Lactic Acid 2.1 H 2.1 H 1.5 Calcium 8.8 Phosphorus 3.3 Magnesium 1.7 Total Bilirubin 0.9 AST 34 ALT 23 Alkaline Phosphatase 57 C-Reactive Protein 1.7 H Total Protein 6.5 Albumin 4.0 Lipase Procalcitonin 0.2 Urine Color Urine Appearance Urine pH Ur Specific [place] Urine Protein Urine Glucose (UA) Urine Ketones Ur Blood (Man) Urine Nitrate Urine Bilirubin Urine Urobilinogen Leukocyte Esterase Rfl Urine RBC Urine WBC Ur Squamous Epith Cells Urine Bacteria Urine Casts 01/14/25 01/14/25 01/14/25 07:54 11:11 13:53 WBC RBC Hgb Hct MCV MCH MCHC RDW Plt Count MPV Immature Gran % (Auto) Neut % (Auto) Lymph % (Auto) Garza % (Auto) Eos % (Auto) Baso % (Auto) Lymph # (Auto) Garza # (Auto) Eos # (Auto) Baso # (Auto) Abs Immat Gran (auto) Absolute Neuts (auto) Absolute Nucleated RBC Nucleated RBC % ESR PT INR Sodium Potassium Chloride Carbon Dioxide Anion Gap BUN Creatinine Estim Creat Clear Calc Estimated GFR Glucose POC Capillary Glucose 135 H 118 H 106 H Hemoglobin A1c Lactic Acid Calcium Phosphorus Magnesium Total Bilirubin AST ALT Alkaline Phosphatase C-Reactive Protein Total Protein Albumin Lipase Procalcitonin Urine Color Urine Appearance Urine pH Ur Specific [place] Urine Protein Urine Glucose (UA) Urine Ketones Ur Blood (Man) Urine Nitrate Urine Bilirubin Urine Urobilinogen Leukocyte Esterase Rfl Urine RBC Urine WBC Ur Squamous Epith Cells Urine Bacteria Urine Casts
--- NOTE | 2025-01-14 19:30 | PC.NURSE ---
On 01/14/25, the ROAD PATCHER, Krystin Alva, provided care and completed [employer] documentation on this patient. I have reviewed the ROAD PATCHER's documentation and agree with the findings.
[2025-01-15] VITALS (7 sets, daily range): BP systolic 121–131; BP diastolic 72–86; PULSE 95–106; RESP 18–24; TEMP 36.1–37.4; O2SAT 92–95
[2025-01-15] MEDS: MORPHINE SULFATE (*CRX) 4 MG/ML INJ IV PUSH (00:06)
[2025-01-15] MEDS: SODIUM CHLORIDE 0.9% IV 1,000 ML 125 ML IV CONT ×3 (00:10→17:28)
--- NOTE | 2025-01-15 07:15 | WPDUROPN2 ---
Progress Note: A&P Assessment and Plan (1) Calculus, ureteral: Code(s): N20.1 - Calculus of ureter Status: Acute (2) Acute UTI: Code(s): N39.0 - Urinary tract infection, site not specified Status: Acute Assessment and Plan: Home any time, from our standpoint, once cultures complete Will make plans for definitive stone intervention (ESWL versus ureteroscopy depending on if he can stop anticoagulation) in 1-2 weeks Subjective Subjective Date/Time Seen: 01/15/25 07:15 Interval history: Feeling much better, tolerating stent well Review of Systems Review of Systems: All systems reviewed & are unremarkable except as noted in HPI and below Exam Const: General: no acute distress Resp: Effort & Inspection: normal respiratory effort GI: Inspection: non-distended GI Palp: No abdominal tenderness and No Guarding due to palpation present (GI) Auscultation: normal bowel sounds Objective Data Vital Signs Vital Signs: Vital Signs - 24 hr 01/14/25 08:00 01/14/25 08:00 01/14/25 09:45 Temperature 97.6 F Pulse Rate 107 H 107 H Respiratory Rate 16 Blood Pressure 107/66 Pulse Oximetry 92 Oxygen Delivery Room Air Oxygen Flow Rate 01/14/25 11:51 01/14/25 12:05 01/14/25 12:25 Temperature 98.1 F 99.9 F H Pulse Rate 110 H 111 H Respiratory Rate 14 18 Blood Pressure 127/74 137/77 Pulse Oximetry 94 92 99 Oxygen Delivery Room Air Room Air Oxygen Flow Rate 01/14/25 13:26 01/14/25 13:40 01/14/25 13:43 Temperature 99.7 F H Pulse Rate 98 105 H 109 H Respiratory Rate 18 18 16 Blood Pressure 101/66 121/86 Pulse Oximetry 92 98 98 Oxygen Delivery Simple Face Mask Simple Face Mask Simple Face Mask Oxygen Flow Rate 12 12 12 01/14/25 13:58 01/14/25 14:05 01/14/25 14:15 Temperature 98.4 F Pulse Rate 108 H 107 H 110 H Respiratory Rate 14 18 14 Blood Pressure 123/76 125/80 125/80 Pulse Oximetry 94 94 94 Oxygen Delivery Nasal Cannula Nasal Cannula Nasal Cannula Oxygen Flow Rate 2 2 2 01/14/25 14:30 01/14/25 14:45 01/14/25 15:15 Temperature 97.8 F Pulse Rate 110 H 108 H 116 H Respiratory Rate 14 20 18 Blood Pressure 128/85 130/81 147/87 H Pulse Oximetry 93 94 91 Oxygen Delivery Nasal Cannula Nasal Cannula Oxygen Flow Rate 2 2 01/14/25 15:30 01/14/25 16:00 01/14/25 17:00 Temperature 98.3 F 98.2 F 98.8 F Pulse Rate 113 H 113 H 113 H Respiratory Rate 18 18 20 Blood Pressure 152/90 H 146/83 H 136/77 Pulse Oximetry 93 95 92 Oxygen Delivery Oxygen Flow Rate 01/14/25 20:00 01/14/25 20:00 01/14/25 21:09 Temperature 97.9 F Pulse Rate 109 H 109 H Respiratory Rate 24 H Blood Pressure 129/69 Pulse Oximetry 93 Oxygen Delivery Room Air Oxygen Flow Rate 01/14/25 23:15 01/15/25 00:00 01/15/25 04:00 Temperature 99.3 F 97.7 F Pulse Rate 106 H 101 H Respiratory Rate 24 H 20 Blood Pressure 125/83 121/78 Pulse Oximetry 93 92 95 Oxygen Delivery Room Air Oxygen Flow Rate Intake/Output Intake/Output: Intake & Output 01/12/25 01/13/25 01/14/25 01/15/25 23:59 23:59 23:59 23:59 Intake Total 3252 1000 Balance 3252 1000 Meds/Results Medications: Active Medications Generic Name Dose Route Start Last Admin Trade Name Freq PRN Reason Stop Dose Admin Alprazolam 0.5 mg 01/14/25 04:35 Alprazolam (*Crx) 0.5 Mg Tablet PO BID PRN anxiety Aspirin 81 mg 01/15/25 09:00 Aspirin 81 Mg Enteric Tablet PO DAILY AB Carvedilol 6.25 mg 01/14/25 09:00 01/14/25 21:09 Carvedilol 6.25 Mg Tablet PO 6.25 mg Q12HR AB Administration Dextrose 12.5 gm 01/14/25 06:14 Dextrose 50% 25 Gm/50 Ml Syringe IV PUSH PRN PRN Hypoglycemia Protocol Furosemide 40 mg 01/15/25 09:00 Furosemide 40 Mg Tablet PO QAM BA Glucagon 1 mg 01/14/25 06:14 Glucagon For Inj 1 Mg Vial IM PRN PRN Hypoglycemia Protocol Glucose 15 gm 01/14/25 06:14 Glucose Oral Gel 15 Gm Of Glucse In 37.5 Gm Tube PO PRN PRN Hypoglycemia Protocol Hydromorphone HCl 0.5 mg 01/13/25 23:43 01/14/25 06:58 Hydromorphone Hcl Inj (*Crx) 2 Mg/Ml Vial IV PUSH 0.25 mg Q4H PRN Administration Pain Rated 7-10 Ceftriaxone Sodium 1 gm in 50 mls @ 100 mls/hr 01/14/25 23:00 01/14/25 21:14 Rocephin 1 Gm/Ns 50 Ml IVPB 100 mls/hr Q24H AB Administration Sodium Chloride 1,000 mls @ 125 mls/hr 01/13/25 23:45 01/15/25 00:10 Normal Saline Iv IV CONT 125 mls/hr .Q8H AB Administration Dextrose 1,000 mls @ 100 mls/hr 01/14/25 06:14 Dextrose 5% 1,000 Ml IVPB PRN PRN Hypoglycemia Protocol Insulin Aspart 4 - 8 units 01/14/25 08:00 01/14/25 18:47 Insulin Aspart (*Bkc) 100 Units/Ml SUB-Q Not Given TIDWM [facility] Protocol Insulin Aspart 20 units 01/15/25 08:00 Insuln Asp Prt/Insulin Aspart 100 Units/MlNovolog Mix(*Bkc) SUB-Q BIDWM [facility] Lisinopril 10 mg 01/15/25 09:00 Lisinopril 10 Mg Tablet PO DAILY [facility] Morphine Sulfate 4 mg 01/13/25 23:43 01/15/25 00:06 Morphine Sulfate (*Crx) 4 Mg/Ml Inj IV PUSH 4 mg Q2H PRN Administration Pain Rated 7-10 Multivitamins Therapeutic 1 tablet 01/15/25 09:00 Multivitamins Therapeutic Tab (*Bkc) PO DAILY [facility] Ondansetron HCl 4 mg 01/13/25 23:43 Ondansetron Inj 4 Mg/2 Ml Vial IV PUSH Q4H PRN Nausea Simvastatin 20 mg 01/15/25 09:00 Simvastatin 20 Mg Tablet PO DAILY [facility] Radiology Results: ITS Impressions Abdomen/Pelvis CT 01/13/25 23:00 IMPRESSION: Moderate left-sided hydroureteronephrosis secondary to a 7.3 mm calculus in the proximal left ureter. Labs Labs: Laboratory Results - last 24 hr 01/14/25 01/14/25 01/14/25 05:54 07:54 11:11 POC Capillary Glucose 135 H 118 H Hemoglobin A1c 6.1 H 01/14/25 01/14/25 01/14/25 13:53 16:23 20:24 POC Capillary Glucose 106 H 129 H 131 H Hemoglobin A1c
[2025-01-15 07:32] LABS: Hematocrit 39.9 % (42.0-52.0); Hemoglobin 12.7 g/dL (14.0-18.0); Immature Granulocyte Percent A 0.6 % (0-0.5); Lymphocytes Absolute Auto 1.00 K/mm3 (0.9-3.2); Mean Corpuscular HGB Conc 31.8 g/dl (32-36); Mean Corpuscular Hemoglobin 29.5 pg (26-34); Mean Corpuscular Volume 92.8 fl (80-100); Nucleated Red Blood Cells Absolute Auto 0.000 K/mm3 (0.0-0.012); Nucleated Red Blood Cells Perc 0.0 % (0.0-0.2); Platelet Count Result 169 k/mm3 (150-375); Red Blood Count 4.30 M/mm3 (4.6-6.20); White Blood Count 8.0 K/mm3 (4.5-10.0)
[2025-01-15 07:43] LABS: INR 1.5; Prothrombin Time 18.2 Seconds (11.1-14.7)
[2025-01-15 08:16] LABS: Alanine Aminotransferase 18 U/L (6-50); Albumin Level 3.6 g/dL (3.5-5.1); Alkaline Phosphatase 53 U/L (38-126); Anion Gap 9 mmol/L (4-12); Aspartate Amino Transferase 33 U/L (17-59); Bilirubin,Total 1.0 mg/dL (0.2-1.3); Blood Urea Nitrogen 15 mg/dL (9-20); Calcium 8.5 mg/dL (8.4-10.2); Carbon Dioxide 21 mmol/L (22-30); Chloride 108 mmol/L (98-107); Estimated CRCL calculation 85 ml/min; Estimated Glomerular Filt Rate > 60; Glucose 113 mg/dL (65-110); Magnesium 1.7 mg/dL (1.6-2.3); Potassium 3.6 mmol/L (3.4-5.0); Sodium 138 mmol/L (137-145); Total Protein 6.3 g/dL (6.3-8.2)
[2025-01-15] MEDS: FUROSEMIDE 40 MG TABLET PO (08:55)
[2025-01-15] MEDS: MULTIVITAMINS THERAPEUTIC TAB (*BKC) 1 TABLET PO (08:56)
[2025-01-15] MEDS: SIMVASTATIN 20 MG TABLET PO (08:56)
[2025-01-15] MEDS: ASPIRIN 81 MG ENTERIC TABLET PO (08:56)
[2025-01-15 12:32] LABS: Hemoglobin A1C. 6.0 % (<5.7)
--- NOTE | 2025-01-15 13:21 | PM.IMPN ---
Progress Note: A&P Assessment and Plan (1) Acute UTI: Code(s): N39.0 - Urinary tract infection, site not specified Status: Acute Assessment and Plan: Patient has complicated UTI Stent was placed Urine culture grows Gram-negative staph and 1/2 blood culture grows positive cocci Repeat blood culture c/w iv rocephin (2) Calculus, ureteral: Code(s): N20.1 - Calculus of ureter Status: Acute Assessment and Plan: -7.3 mm obstructing left ureteral stone with concomitant UTI -Urology consulted will put in stent today keep npo (3) Type 2 diabetes mellitus: Qualifiers: Diabetes mellitus terminal supervisor insulin use: with halfway use Diabetes mellitus complication status: without complication Qualified Code(s): E11.9 - Type 2 diabetes mellitus without complications; Z79.4 - alf (current) use of insulin Code(s): E11.9 - Type 2 diabetes mellitus without complications Status: Chronic Assessment and Plan: -accuchecks, ssi (4) Atrial fibrillation: Qualifiers: Atrial fibrillation type: permanent Qualified Code(s): I48.21 - Permanent atrial fibrillation Code(s): I48.91 - Unspecified atrial fibrillation Status: Chronic Assessment and Plan: -Pacer/Defib in place -coumadin for anticoagulation -hold coumadin (5) Hypertension: Qualifiers: Hypertension type: essential hypertension Qualified Code(s): I10 - Essential (primary) hypertension Code(s): I10 - Essential (primary) hypertension Status: Chronic Assessment and Plan: -Blood pressure reviewed and stable/mildly elevated. -continue home coreg (6) Anxiety: Code(s): F41.9 - Anxiety disorder, unspecified Status: Chronic Assessment and Plan: -Continue home medications (7) Hyperlipidemia: Qualifiers: Hyperlipidemia type: unspecified Qualified Code(s): E78.5 - Hyperlipidemia, unspecified Code(s): E78.5 - Hyperlipidemia, unspecified Status: Chronic Assessment and Plan: -Chronic, continue simvastatin (8) History of ME (myocardial infarction): Code(s): I25.2 - Old myocardial infarction Status: Chronic Assessment and Plan: -chronic and stable (9) Cardiac defibrillator in place: Code(s): Z95.810 - Presence of automatic (implantable) cardiac defibrillator Status: Chronic Assessment and Plan: -chronic and stable Subjective Date/time seen: 01/15/25 13:21 Interval history: I saw exam patient today patient patient still has left lower groin pain, tolerable, afebrile, blood pressure stable, Exam Narrative: GENERAL: middle aged pain mild distress in left flank ENT: Nares clear, no rhinorrhea or epistaxis. Mucous membranes moist. NECK: Supple. CHEST: Clear to auscultation. No respiratory distress. HEART: Regular rate and rhythm. No murmur heard. Normal peripheral pulses. ABDOMEN: Soft, nontender, nondistended, normal active bowel sounds. Left lower quadrant tenderness EXTREMITIES: Normal range of motion. No edema. SKIN: Warm, dry, no rash. NEURO: No focal deficits. Alert and oriented x3 Objective Data Vital Signs Vital Signs: Vital Signs - 24 hr 01/14/25 13:26 01/14/25 13:40 01/14/25 13:43 Temperature 99.7 F H Pulse Rate 98 105 H 109 H Respiratory Rate 18 18 16 Blood Pressure 101/66 121/86 Pulse Oximetry 92 98 98 Oxygen Delivery Simple Face Mask Simple Face Mask Simple Face Mask Oxygen Flow Rate 12 12 12 01/14/25 13:58 01/14/25 14:05 01/14/25 14:15 Temperature 98.4 F Pulse Rate 108 H 107 H 110 H Respiratory Rate 14 18 14 Blood Pressure 123/76 125/80 125/80 Pulse Oximetry 94 94 94 Oxygen Delivery Nasal Cannula Nasal Cannula Nasal Cannula Oxygen Flow Rate 2 2 2 01/14/25 14:30 01/14/25 14:45 01/14/25 15:15 Temperature 97.8 F Pulse Rate 110 H 108 H 116 H Respiratory Rate 14 20 18 Blood Pressure 128/85 130/81 147/87 H Pulse Oximetry 93 94 91 Oxygen Delivery Nasal Cannula Nasal Cannula Oxygen Flow Rate 2 2 01/14/25 15:30 01/14/25 16:00 01/14/25 17:00 Temperature 98.3 F 98.2 F 98.8 F Pulse Rate 113 H 113 H 113 H Respiratory Rate 18 18 20 Blood Pressure 152/90 H 146/83 H 136/77 Pulse Oximetry 93 95 92 Oxygen Delivery Oxygen Flow Rate 01/14/25 20:00 01/14/25 20:00 01/14/25 21:09 Temperature 97.9 F Pulse Rate 109 H 109 H Respiratory Rate 24 H Blood Pressure 129/69 Pulse Oximetry 93 Oxygen Delivery Room Air Oxygen Flow Rate 01/14/25 23:15 01/15/25 00:00 01/15/25 04:00 Temperature 99.3 F 97.7 F Pulse Rate 106 H 101 H Respiratory Rate 24 H 20 Blood Pressure 125/83 121/78 Pulse Oximetry 93 92 95 Oxygen Delivery Room Air Oxygen Flow Rate 01/15/25 08:00 01/15/25 12:00 Temperature 97.7 F 97.5 F L Pulse Rate 98 100 Respiratory Rate 20 20 Blood Pressure 131/75 122/72 Pulse Oximetry 95 95 Oxygen Delivery Oxygen Flow Rate Intake/Output Intake/Output: Intake & Output 01/12/25 01/13/25 01/14/25 01/15/25 23:59 23:59 23:59 23:59 Intake Total 3252 2380 Balance 3252 2380 Meds/Results Medications: Active Medications Generic Name Dose Route Start Last Admin Trade Name Freq PRN Reason Stop Dose Admin Alprazolam 0.5 mg 01/14/25 04:35 Alprazolam (*Crx) 0.5 Mg Tablet PO BID PRN anxiety Aspirin 81 mg 01/15/25 09:00 01/15/25 08:56 Aspirin 81 Mg Enteric Tablet PO 81 mg DAILY AB Administration Carvedilol 6.25 mg 01/14/25 09:00 01/15/25 08:55 Carvedilol 6.25 Mg Tablet PO 6.25 mg Q12HR AB Administration Dextrose 12.5 gm 01/14/25 06:14 Dextrose 50% 25 Gm/50 Ml Syringe IV PUSH PRN PRN Hypoglycemia Protocol Furosemide 40 mg 01/15/25 09:00 01/15/25 08:55 Furosemide 40 Mg Tablet PO 40 mg QAM AB Administration Glucagon 1 mg 01/14/25 06:14 Glucagon For Inj 1 Mg Vial IM PRN PRN Hypoglycemia Protocol Glucose 15 gm 01/14/25 06:14 Glucose Oral Gel 15 Gm Of Glucse In 37.5 Gm Tube PO PRN PRN Hypoglycemia Protocol Hydromorphone HCl 0.5 mg 01/13/25 23:43 01/14/25 06:58 Hydromorphone Hcl Inj (*Crx) 2 Mg/Ml Vial IV PUSH 0.25 mg Q4H PRN Administration Pain Rated 7-10 Ceftriaxone Sodium 1 gm in 50 mls @ 100 mls/hr 01/14/25 23:00 01/14/25 21:14 Rocephin 1 Gm/Ns 50 Ml IVPB 100 mls/hr Q24H AB Administration Sodium Chloride 1,000 mls @ 125 mls/hr 01/13/25 23:45 01/15/25 08:55 Normal Saline Iv IV CONT 125 mls/hr .Q8H AB Administration Dextrose 1,000 mls @ 100 mls/hr 01/14/25 06:14 Dextrose 5% 1,000 Ml IVPB PRN PRN Hypoglycemia Protocol Insulin Aspart 4 - 8 units 01/14/25 08:00 01/15/25 12:06 Insulin Aspart (*Bkc) 100 Units/Ml SUB-Q Not Given TIDWM AB Protocol Insulin Aspart 20 units 01/15/25 08:00 01/15/25 09:15 Insuln Asp Prt/Insulin Aspart 100 Units/MlNovolog Mix(*Bkc) SUB-Q Not Given BIDWM [facility] Lisinopril 10 mg 01/15/25 09:00 01/15/25 08:56 Lisinopril 10 Mg Tablet PO 10 mg DAILY AB Administration Morphine Sulfate 4 mg 01/13/25 23:43 01/15/25 00:06 Morphine Sulfate (*Crx) 4 Mg/Ml Inj IV PUSH 4 mg Q2H PRN Administration Pain Rated 7-10 Multivitamins Therapeutic 1 tablet 01/15/25 09:00 01/15/25 08:56 Multivitamins Therapeutic Tab (*Bkc) PO 1 tablet DAILY AB Administration Ondansetron HCl 4 mg 01/13/25 23:43 Ondansetron Inj 4 Mg/2 Ml Vial IV PUSH Q4H PRN Nausea Simvastatin 20 mg 01/15/25 09:00 01/15/25 08:56 Simvastatin 20 Mg Tablet PO 20 mg DAILY AB Administration Radiology Results: ITS Impressions Abdomen/Pelvis CT 01/13/25 23:00 IMPRESSION: Moderate left-sided hydroureteronephrosis secondary to a 7.3 mm calculus in the proximal left ureter. Labs Labs: Laboratory Results - last 24 hr 01/14/25 01/14/25 01/14/25 13:53 16:23 20:24 WBC RBC Hgb Hct MCV MCH MCHC RDW Plt Count MPV Immature Gran % (Auto) Neut % (Auto) Lymph % (Auto) Perkins % (Auto) Eos % (Auto) Baso % (Auto) Lymph # (Auto) Perkins # (Auto) Eos # (Auto) Baso # (Auto) Abs Immat Gran (auto) Absolute Neuts (auto) Absolute Nucleated RBC Nucleated RBC % PT INR Sodium Potassium Chloride Carbon Dioxide Anion Gap BUN Creatinine Estim Creat Clear Calc Estimated GFR Glucose POC Capillary Glucose 106 H 129 H 131 H Hemoglobin A1c Calcium Phosphorus Magnesium Total Bilirubin AST ALT Alkaline Phosphatase Total Protein Albumin 01/15/25 01/15/25 01/15/25 06:57 08:03 11:34 WBC 8.0 RBC 4.30 L Hgb 12.7 L Hct 39.9 L MCV 92.8 MCH 29.5 MCHC 31.8 L RDW 15.3 H Plt Count 169 MPV 10.9 H Immature Gran % (Auto) 0.6 H Neut % (Auto) 73.8 H Lymph % (Auto) 12.6 L Perkins % (Auto) 11.1 H Eos % (Auto) 1.3 Baso % (Auto) 0.6 Lymph # (Auto) 1.00 Perkins # (Auto) 0.9 H Eos # (Auto) 0.1 Baso # (Auto) 0.1 Abs Immat Gran (auto) 0.05 H Absolute Neuts (auto) 5.9 Absolute Nucleated RBC 0.000 Nucleated RBC % 0.0 PT 18.2 H INR 1.5 Sodium 138 Potassium 3.6 Chloride 108 H Carbon Dioxide 21 L Anion Gap 9 BUN 15 Creatinine 1.04 Estim Creat Clear Calc 85 Estimated GFR > 60 Glucose 113 H POC Capillary Glucose 118 H 141 H Hemoglobin A1c 6.0 H Calcium 8.5 Phosphorus 2.3 L Magnesium 1.7 Total Bilirubin 1.0 AST 33 ALT 18 Alkaline Phosphatase 53 Total Protein 6.3 Albumin 3.6
[2025-01-15] MEDS: INSULIN ASPART MIX 70/30 100 UNITS/ML 20 UNITS SUB-Q (18:20)
--- NOTE | 2025-01-16 | ECHO_ITS ---
Patient Info Name: Christos Gamboa Age: 64 years : 1960 Gender: Male Ht: 73 in Wt: 262 lbs BSA: 2.51 m2 HR: 92 bpm BP: 124 / 79 mmHg Technical Quality: Fair Exam Date: 01/16/2025 8:19 AM Patient Status: I Admit Date: 01/15/2025 Exam Type: CA echo dop color flow w con Complete two-dimensional, color flow and Doppler transthoracic echocardiogram is performed with contrast to opacify the left ventricle and to improve the deliniation of the left ventricle endocardial borders. Staff Referring Physician: Grabiel Odonnell M.D. Nephrology Nurse: Jeanne Thurston Attending Provider: Shayna Castellano Contrast/Agitated Saline Contrast/Ag. Saline: Definity Amount: 2.00 ml Administered By: Jeanne Thurston Existing IV Access: No IV Access Condition: patent with no signs of infiltration Summary 1. There is no definite endocarditis in this study; however the pacemaker leads are not well visualized. Would recommend clinical correlation. 2. The left ventricle is mildly dilated with moderately reduced systolic function. The left ventricular ejection fraction is visually estimated 30 40%. 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 The inferior wall is mildly hypokinetic. 3. The mitral valve leaflets are normal. There is moderate mitral regurgitation that is posteriorly directed and likely functional in etiology. Left Ventricle The left ventricle is mildly dilated with moderately reduced systolic function. The left ventricular ejection fraction is visually estimated 30 40%. 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 The inferior wall is mildly hypokinetic. Right Ventricle The right ventricle is normal in size and systolic function. Linear artifact in right ventricle suggestive of catheter(s), pacemaker lead(s), or ICD lead(s). Left Atria The left atrium is mildly dilated. Right Atria The right atrium is normal size. Atrial Septum The atrial septum is not well visualized. Aortic Valve The aortic valve is trileaflet and opens well. There is no aortic regurgitation. Pulmonic Valve The pulmonic valve is grossly normal. There is trace pulmonic valve regurgitation. Mitral Valve The mitral valve leaflets are normal. There is moderate mitral regurgitation that is posteriorly directed and likely functional in etiology. Tricuspid Valve The tricuspid valve is normal. There is mild tricuspid regurgitation. Pericardium/Pleural Pericardium is normal in appearance with no evidence for significant pericardial effusion. Inferior Vena Cava Inferior vena cava is not well visualized. Aorta The aortic root at the level of the sinus of Valsalva measures 3.4 cm in diameter. Left Ventricular Outflow Tract Name Value Normal LVOT 2D LVOT Diameter 2.3 cm LVOT Doppler LVOT Peak Velocity 104 cm/s LVOT Peak Gradient 4 mmHg LVOT Mean Gradient 2 mmHg LVOT VTI 20 cm LVOT Stroke Volume 84 ml LVOT CO 7.8 l/min LVOT CI 3.1 l/min/m2 Pulmonic Valve Name Value Normal RVOT Doppler RVOT Peak Velocity 65 cm/s RVOT Peak Gradient 2 mmHg PV Doppler PV Peak Velocity 80 cm/s PV Peak Gradient 3 mmHg Mitral Valve Name Value Normal MV Diastolic Function MV E Peak Velocity 59 cm/s MV A Peak Velocity 38 cm/s MV E/A 1.6 MV Decel Time (PW) 181 ms MV Annular TDI MV E/e' (Septal) 10.2 MV E/e' (Lateral) 7.4 MV E/e' (Average) 8.8 Tricuspid Valve Name Value Normal TV Regurgitation Doppler TR Peak Velocity 326 cm/s TR Peak Gradient 42 mmHg Aortic Valve Name Value Normal AV Doppler AV Peak Velocity 115 cm/s AV Peak Gradient 5 mmHg AV Area (Cont Eq Lv) 3.9 cm2 AV DI (Lv) 0.91 AV Regurgitation 2D LVOT Area 4.3 cm2 Ventricles Name Value Normal LV Dimensions 2D/MM IVS Diastolic Thickness (2D) 1.2 cm 0.6-1.0 LVID Diastole (2D) 6.3 cm 4.2-5.8 LVIW Diastolic Thickness (2D) 1.1 cm 0.6-1.0 LVID Systole (2D) 5.4 cm 2.5-4.0 LVOT Diameter 2.3 cm LV Mass (2D Cubed) 314.78 g 88.00-224.00 LV Mass Index (2D Cubed) 125 g/m2 49-115 Relative Wall Thickness (2D) 0.35 <=0.42 LV Fractional Shortening/Ejection Fraction 2D/MM LV Fractional Shortening (2D) 14 % 25-43 LV EF (2D Teichholz) 30 % LV Diastolic Volume (4C MOD) 147 ml LV EF (4C MOD) 49 % LV Diastolic Volume (2C MOD) 167 ml LV EF (2C MOD) 31 % LV Diastolic Volume (BP MOD) 156 ml 62-150 LV Diastolic Volume Index (BP MOD) 62 ml/m2 34-74 LV Systolic Volume (BP MOD) 96 ml 21-61 LV Systolic Volume Index (BP MOD) 38 ml/m2 11-31 LV EF (BP MOD) 39 % 52-72 LV Diastolic Length (4C) 9.8 cm LV Systolic Length (4C) 8.6 cm LV Stroke Volume (4C MOD) 72 ml Atria Name Value Normal LA Dimensions LA Volume (4C A-L) 76 ml LA Volume (BP A-L) 86 ml RA Dimensions RA Systolic Major Emerado Length (4C) 6.0 cm 2.1-2.7 RA Area (4C) 17.5 cm2 <=18.0 Report Signatures
[2025-01-16 00:55] VITALS: BP 124/72; PULSE 96; RESP 20; TEMP 36.6; O2SAT 93
[2025-01-16] MEDS: SODIUM CHLORIDE 0.9% IV 1,000 ML 125 ML IV CONT (02:03)
[2025-01-16 05:20] VITALS: BP 124/79; PULSE 91; RESP 18; TEMP 36.2; O2SAT 94
[2025-01-16 06:33] LABS: Hematocrit 39.8 % (42.0-52.0); Hemoglobin 12.8 g/dL (14.0-18.0); Immature Granulocyte Percent A 0.4 % (0-0.5); Lymphocytes Absolute Auto 1.36 K/mm3 (0.9-3.2); Mean Corpuscular HGB Conc 32.2 g/dl (32-36); Mean Corpuscular Hemoglobin 29.8 pg (26-34); Mean Corpuscular Volume 92.8 fl (80-100); Nucleated Red Blood Cells Absolute Auto 0.000 K/mm3 (0.0-0.012); Nucleated Red Blood Cells Perc 0.0 % (0.0-0.2); Platelet Count Result 166 k/mm3 (150-375); Red Blood Count 4.29 M/mm3 (4.6-6.20); White Blood Count 6.7 K/mm3 (4.5-10.0)
[2025-01-16 07:00] LABS: Alanine Aminotransferase 20 U/L (6-50); Albumin Level 3.5 g/dL (3.5-5.1); Alkaline Phosphatase 54 U/L (38-126); Anion Gap 8 mmol/L (4-12); Aspartate Amino Transferase 34 U/L (17-59); Bilirubin,Total 0.7 mg/dL (0.2-1.3); Blood Urea Nitrogen 15 mg/dL (9-20); Calcium 8.5 mg/dL (8.4-10.2); Carbon Dioxide 23 mmol/L (22-30); Chloride 110 mmol/L (98-107); Estimated CRCL calculation 91 ml/min; Estimated Glomerular Filt Rate > 60; Glucose 101 mg/dL (65-110); Magnesium 2.1 mg/dL (1.6-2.3); Potassium 3.4 mmol/L (3.4-5.0); Sodium 141 mmol/L (137-145); Total Protein 6.3 g/dL (6.3-8.2)
[2025-01-16 07:21] LABS: INR 1.3; Prothrombin Time 16.2 Seconds (11.1-14.7)
--- NOTE | 2025-01-16 07:41 | PM.IMPN ---
Progress Note: A&P Assessment and Plan (1) Acute UTI: Code(s): N39.0 - Urinary tract infection, site not specified Status: Acute Assessment and Plan: Patient has complicated UTI Stent was placed Urine culture grew coag negative staph, which can rarely colonize stones 01/13 Blood cultures also growing a staph species. Repeat blood culture Change Rocephin to Vancomycin (2) Calculus, ureteral: Code(s): N20.1 - Calculus of ureter Status: Acute Assessment and Plan: 7.3 mm obstructing left ureteral stone with concomitant UTI -Urology consulted and placed a stent. Per urology note: Plans for definitive stone intervention (ESWL versus ureteroscopy depending on if he can stop anticoagulation) in 1-2 weeks (3) Type 2 diabetes mellitus: Qualifiers: Diabetes mellitus complication status: without complication Diabetes mellitus petroleum terminal plant operator insulin use: with petroleum terminal plant operator use Qualified Code(s): E11.9 - Type 2 diabetes mellitus without complications; Z79.4 - snf (current) use of insulin Code(s): E11.9 - Type 2 diabetes mellitus without complications Status: Chronic Assessment and Plan: -accuchecks, ssi (4) Atrial fibrillation: Qualifiers: Atrial fibrillation type: permanent Qualified Code(s): I48.21 - Permanent atrial fibrillation Code(s): I48.91 - Unspecified atrial fibrillation Status: Chronic Assessment and Plan: -Pacer/Defib in place -coumadin for anticoagulation -holding coumadin, resume tomorrow (5) Hypertension: Qualifiers: Hypertension type: essential hypertension Qualified Code(s): I10 - Essential (primary) hypertension Code(s): I10 - Essential (primary) hypertension Status: Chronic Assessment and Plan: -Blood pressure reviewed and stable/mildly elevated. -continue home coreg (6) Anxiety: Code(s): F41.9 - Anxiety disorder, unspecified Status: Chronic Assessment and Plan: -Continue home medications (7) Hyperlipidemia: Qualifiers: Hyperlipidemia type: unspecified Qualified Code(s): E78.5 - Hyperlipidemia, unspecified Code(s): E78.5 - Hyperlipidemia, unspecified Status: Chronic Assessment and Plan: -Chronic, continue simvastatin (8) History of CA (myocardial infarction): Code(s): I25.2 - Old myocardial infarction Status: Chronic Assessment and Plan: -Continue ASA 6/28 TTE 1. There is no definite endocarditis in this study; however the pacemaker leads are not well visualized. Would recommend clinical correlation. 2. The left ventricle is mildly dilated with moderately reduced systolic function. The left ventricular ejection fraction is visually estimated 30-40%. 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 The inferior wall is mildly hypokinetic. 3. The mitral valve leaflets are normal. There is moderate mitral regurgitation that is posteriorly directed and likely functional in etiology. (9) Cardiac defibrillator in place: Code(s): Z95.810 - Presence of automatic (implantable) cardiac defibrillator Status: Chronic Assessment and Plan: -chronic and stable (10) Bacteremia: Code(s): R78.81 - Bacteremia Status: Acute Assessment and Plan: Blood cultures 01/13 Staph epi. 2nd bottle GPC in clusters. Identification and susceptibilities to follow --01/16 TTE no evidence of endocarditis but not conclusive --If both organisms staph epi, needs a DAYANA to rule out endocarditis since he has a defibrillator --Follow final blood cultures 01/13 --01/13 blood cultures NGTD--Follow final cultures Time Spent With Patient Time: 36 minutes Subjective Date/time seen: 01/16/25 07:41 Interval history: s/p OR for left ureteral stone 01/14 01/13 Urine grew coag neg staph. Blood culture 01/13 GPC. Repeat cultures 01/15 NGTD . TTE WBC improving with Ceftriaxone. Real vs contaminant but improving white count and fevers Potassium 3.3 20meq today Reviewed labs and TTE Review of Systems Review of Systems: Left abdominal pain All systems reviewed & are unremarkable except as noted in HPI and below Exam Narrative: GENERAL: middle aged pain mild distress in left flank ENT: Nares clear, no rhinorrhea or epistaxis. Mucous membranes moist. NECK: Supple. CHEST: Clear to auscultation. No respiratory distress. HEART: Regular rate and rhythm. No murmur heard. Normal peripheral pulses. ABDOMEN: Soft, nontender, nondistended, normal active bowel sounds. Left lower quadrant tenderness EXTREMITIES: Normal range of motion. No edema. SKIN: Warm, dry, no rash. NEURO: No focal deficits. Alert and oriented x3 Objective Data Vital Signs Vital Signs: Vital Signs - 24 hr 01/15/25 08:00 01/15/25 12:00 01/15/25 16:00 Temperature 97.7 F 97.5 F L Pulse Rate 98 100 102 H Respiratory Rate 20 20 18 Blood Pressure 131/75 122/72 124/80 Pulse Oximetry 95 95 95 01/15/25 20:35 01/15/25 21:12 01/16/25 00:55 Temperature 96.9 F L 97.9 F Pulse Rate 95 95 96 Respiratory Rate 18 20 Blood Pressure 127/86 124/72 Pulse Oximetry 94 93 01/16/25 05:20 Temperature 97.2 F L Pulse Rate 91 Respiratory Rate 18 Blood Pressure 124/79 Pulse Oximetry 94 Intake/Output Intake/Output: Intake & Output 01/13/25 01/14/25 01/15/25 01/16/25 23:59 23:59 23:59 23:59 Intake Total 3302 3680 1100 Output Total 350 Balance 3302 3680 750 Meds/Results Medications: Active Medications Generic Name Dose Route Start Last Admin Trade Name Freq PRN Reason Stop Dose Admin Alprazolam 0.5 mg 01/14/25 04:35 Alprazolam (*Crx) 0.5 Mg Tablet PO BID PRN anxiety Aspirin 81 mg 01/15/25 09:00 01/15/25 08:56 Aspirin 81 Mg Enteric Tablet PO 81 mg DAILY AB Administration Carvedilol 6.25 mg 01/14/25 09:00 01/15/25 21:12 Carvedilol 6.25 Mg Tablet PO 6.25 mg Q12HR AB Administration Dextrose 12.5 gm 01/14/25 06:14 Dextrose 50% 25 Gm/50 Ml Syringe IV PUSH PRN PRN Hypoglycemia Protocol Furosemide 40 mg 01/15/25 09:00 01/15/25 08:55 Furosemide 40 Mg Tablet PO 40 mg QAM AB Administration Glucagon 1 mg 01/14/25 06:14 Glucagon For Inj 1 Mg Vial IM PRN PRN Hypoglycemia Protocol Glucose 15 gm 01/14/25 06:14 Glucose Oral Gel 15 Gm Of Glucse In 37.5 Gm Tube PO PRN PRN Hypoglycemia Protocol Hydromorphone HCl 0.5 mg 01/13/25 23:43 01/14/25 06:58 Hydromorphone Hcl Inj (*Crx) 2 Mg/Ml Vial IV PUSH 0.25 mg Q4H PRN Administration Pain Rated 7-10 Ceftriaxone Sodium 1 gm in 50 mls @ 100 mls/hr 01/14/25 23:00 01/15/25 23:11 Rocephin 1 Gm/Ns 50 Ml IVPB 100 mls/hr Q24H AB Administration Sodium Chloride 1,000 mls @ 125 mls/hr 01/13/25 23:45 01/16/25 02:03 Normal Saline Iv IV CONT 125 mls/hr .Q8H AB Administration Dextrose 1,000 mls @ 100 mls/hr 01/14/25 06:14 Dextrose 5% 1,000 Ml IVPB PRN PRN Hypoglycemia Protocol Insulin Aspart 4 - 8 units 01/14/25 08:00 01/15/25 17:15 Insulin Aspart (*Bkc) 100 Units/Ml SUB-Q Not Given TIDWM [facility] Protocol Insulin Aspart 20 units 01/15/25 17:00 01/15/25 18:20 Insulin Aspart Mix 70/30 100 Units/Ml SUB-Q 20 units BIDWM AB Administration Lisinopril 10 mg 01/15/25 09:00 01/15/25 08:56 Lisinopril 10 Mg Tablet PO 10 mg DAILY AB Administration Morphine Sulfate 4 mg 01/13/25 23:43 01/15/25 00:06 Morphine Sulfate (*Crx) 4 Mg/Ml Inj IV PUSH 4 mg Q2H PRN Administration Pain Rated 7-10 Multivitamins Therapeutic 1 tablet 01/15/25 09:00 01/15/25 08:56 Multivitamins Therapeutic Tab (*Bkc) PO 1 tablet DAILY AB Administration Ondansetron HCl 4 mg 01/13/25 23:43 Ondansetron Inj 4 Mg/2 Ml Vial IV PUSH Q4H PRN Nausea Simvastatin 20 mg 01/15/25 09:00 01/15/25 08:56 Simvastatin 20 Mg Tablet PO 20 mg DAILY AB Administration Radiology Results: ITS Impressions Abdomen/Pelvis CT 01/13/25 23:00 IMPRESSION: Moderate left-sided hydroureteronephrosis secondary to a 7.3 mm calculus in the proximal left ureter. Labs Labs: Laboratory Results - last 24 hr 01/15/25 01/15/25 01/15/25 06:57 08:03 11:34 WBC RBC Hgb Hct MCV MCH MCHC RDW Plt Count MPV Immature Gran % (Auto) Neut % (Auto) Lymph % (Auto) [place] % (Auto) Eos % (Auto) Baso % (Auto) Lymph # (Auto) [place] # (Auto) Eos # (Auto) Baso # (Auto) Abs Immat Gran (auto) Absolute Neuts (auto) Absolute Nucleated RBC Nucleated RBC % PT 18.2 H INR 1.5 Sodium 138 Potassium 3.6 Chloride 108 H Carbon Dioxide 21 L Anion Gap 9 BUN 15 Creatinine 1.04 Estim Creat Clear Calc 85 Estimated GFR > 60 Glucose 113 H POC Capillary Glucose 118 H 141 H Hemoglobin A1c 6.0 H Calcium 8.5 Phosphorus 2.3 L Magnesium 1.7 Total Bilirubin 1.0 AST 33 ALT 18 Alkaline Phosphatase 53 Total Protein 6.3 Albumin 3.6 01/15/25 01/15/25 01/16/25 16:25 20:39 06:19 WBC RBC Hgb Hct MCV MCH MCHC RDW Plt Count MPV Immature Gran % (Auto) Neut % (Auto) Lymph % (Auto) [place] % (Auto) Eos % (Auto) Baso % (Auto) Lymph # (Auto) [place] # (Auto) Eos # (Auto) Baso # (Auto) Abs Immat Gran (auto) Absolute Neuts (auto) Absolute Nucleated RBC Nucleated RBC % PT 16.2 H INR 1.3 Sodium 141 Potassium 3.4 Chloride 110 H Carbon Dioxide 23 Anion Gap 8 BUN 15 Creatinine 0.96 Estim Creat Clear Calc 91 Estimated GFR > 60 Glucose 101 POC Capillary Glucose 136 H 93 Hemoglobin A1c Calcium 8.5 Phosphorus 2.6 Magnesium 2.1 Total Bilirubin 0.7 AST 34 ALT 20 Alkaline Phosphatase 54 Total Protein 6.3 Albumin 3.5 01/16/25 06:20 WBC 6.7 RBC 4.29 L Hgb 12.8 L Hct 39.8 L MCV 92.8 MCH 29.8 MCHC 32.2 RDW 15.1 H Plt Count 166 MPV 10.6 H Immature Gran % (Auto) 0.4 Neut % (Auto) 60.2 Lymph % (Auto) 20.3 [place] % (Auto) 13.7 H Eos % (Auto) 4.8 H Baso % (Auto) 0.6 Lymph # (Auto) 1.36 [place] # (Auto) 0.9 H Eos # (Auto) 0.3 Baso # (Auto) 0.0 Abs Immat Gran (auto) 0.03 Absolute Neuts (auto) 4.0 Absolute Nucleated RBC 0.000 Nucleated RBC % 0.0 PT INR Sodium Potassium Chloride Carbon Dioxide Anion Gap BUN Creatinine Estim Creat Clear Calc Estimated GFR Glucose POC Capillary Glucose Hemoglobin A1c Calcium Phosphorus Magnesium Total Bilirubin AST ALT Alkaline Phosphatase Total Protein Albumin Quality VTE Prophylaxis VTE prophylaxis: mechanical ordered Hospitalist MIPS Advance Care Plan I have confirmed that the patient's Advanced Care Plan is present, code status is documented, or surrogate decision maker is listed in patient medical record.: Yes Medication Reconciliation I have utilized all available resources to obtain, update and review the patients current medications (includes all prescriptions, OTC, herbals, cannabis, and nutritional supplements).: Yes
[2025-01-16 10:03] VITALS: PULSE 91
[2025-01-16] MEDS: POTASSIUM CHLORIDE 20 MEQ ER TABLET PO (10:03)
[2025-01-16] MEDS: ASPIRIN 81 MG ENTERIC TABLET PO (10:03)
[2025-01-16] MEDS: INSULIN ASPART MIX 70/30 100 UNITS/ML 20 UNITS SUB-Q ×2 (10:04→18:57)
[2025-01-16] MEDS: MULTIVITAMINS THERAPEUTIC TAB (*BKC) 1 TABLET PO (10:05)
[2025-01-16] MEDS: SIMVASTATIN 20 MG TABLET PO (10:05)
[2025-01-16] MEDS: FUROSEMIDE 40 MG TABLET PO (10:05)
[2025-01-16] MEDS: PERFLUTREN LIPID MICROSPHERES 1.5 ML VIAL DILUTED TO 10 ML TOTAL VOLUME IV PUSH (10:10)
--- NOTE | 2025-01-16 10:37 | IVDEFINITY ---
Prior to administration of IV Definity the patient was educated on the risks and benefits of the imaging enhancing agent including potential adverse side effects. The patient verbalized understanding. Allergies were verified. No exclusion criteria were identified and at least one of the following inclusion criteria were met: 1) physician request, 2) patient technically difficult to image (per the [place] [employer] guidelines of two or more segments not discernable within the apical view), or 3) questionable left ventricular function. ?
[2025-01-16 14:00] VITALS: BP 131/82; PULSE 97; RESP 20; TEMP 36.6; O2SAT 97
[2025-01-16] MEDS: VANCOMYCIN 1,250 MG/NS 250 ML 1,250 MG/250 ML BAG 166.67 MG IVPB (15:48)
[2025-01-16] MEDS: VANCOMYCIN 1,250 MG/NS 250 ML 1,250 MG/250 ML BAG 166 MG IVPB (17:30)
[2025-01-16 20:45] VITALS: BP 129/79; PULSE 90; RESP 18; TEMP 36.5; O2SAT 97
[2025-01-16 21:16] VITALS: PULSE 90
[2025-01-16] MEDS: SODIUM CHLORIDE 0.9% IV 1,000 ML 80 ML IV CONT (21:16)
[2025-01-17] MEDS: VANCOMYCIN 1,500 MG/NS 500 ML 1,500 MG/500 ML BAG 250 MG IVPB ×2 (04:05→15:32)
[2025-01-17 05:20] VITALS: BP 133/88; PULSE 86; RESP 20; TEMP 36.6; O2SAT 95
[2025-01-17 06:57] LABS: Hematocrit 41.4 % (42.0-52.0); Hemoglobin 13.2 g/dL (14.0-18.0); Immature Granulocyte Percent A 0.4 % (0-0.5); Lymphocytes Absolute Auto 1.57 K/mm3 (0.9-3.2); Mean Corpuscular HGB Conc 31.9 g/dl (32-36); Mean Corpuscular Hemoglobin 29.7 pg (26-34); Mean Corpuscular Volume 93.0 fl (80-100); Nucleated Red Blood Cells Absolute Auto 0.000 K/mm3 (0.0-0.012); Nucleated Red Blood Cells Perc 0.0 % (0.0-0.2); Platelet Count Result 191 k/mm3 (150-375); Red Blood Count 4.45 M/mm3 (4.6-6.20); White Blood Count 6.9 K/mm3 (4.5-10.0)
[2025-01-17 07:15] LABS: INR 1.1; Prothrombin Time 14.2 Seconds (11.1-14.7)
[2025-01-17 07:17] LABS: Alanine Aminotransferase 27 U/L (6-50); Albumin Level 3.7 g/dL (3.5-5.1); Alkaline Phosphatase 57 U/L (38-126); Anion Gap 8 mmol/L (4-12); Aspartate Amino Transferase 43 U/L (17-59); Bilirubin,Total 0.8 mg/dL (0.2-1.3); Blood Urea Nitrogen 15 mg/dL (9-20); CRP. 5.8 mg/dL (<1.0); Calcium 8.5 mg/dL (8.4-10.2); Carbon Dioxide 24 mmol/L (22-30); Chloride 110 mmol/L (98-107); Estimated CRCL calculation 96 ml/min; Estimated Glomerular Filt Rate > 60; Glucose 105 mg/dL (65-110); Magnesium 1.9 mg/dL (1.6-2.3); Potassium 3.3 mmol/L (3.4-5.0); Sodium 142 mmol/L (137-145); Total Protein 6.5 g/dL (6.3-8.2)
[2025-01-17 08:41] VITALS: PULSE 86
[2025-01-17] MEDS: ASPIRIN 81 MG ENTERIC TABLET PO (08:41)
[2025-01-17] MEDS: MULTIVITAMINS THERAPEUTIC TAB (*BKC) 1 TABLET PO (08:41)
[2025-01-17] MEDS: FUROSEMIDE 40 MG TABLET PO (08:41)
[2025-01-17] MEDS: SIMVASTATIN 20 MG TABLET PO (08:41)
[2025-01-17] MEDS: INSULIN ASPART MIX 70/30 100 UNITS/ML 20 UNITS SUB-Q (08:42)
--- NOTE | 2025-01-17 09:08 | P.PNIM_ITS ---
Progress Note: A&P Assessment and Plan (1) Bacteremia: Code(s): R78.81 - Bacteremia Status: Acute Assessment and Plan: 01/13 Blood cultures 01/13 Staph epi. 2nd bottle GPC in clusters. Identification and susceptibilities to follow 01/15 blood cultures NGTD 01/16 TTE no evidence of endocarditis but not conclusive --If both organisms staph epi, needs a DAYANA to rule out endocarditis since he has a defibrillator. If negative for endocarditis will need a PICC and 2 weeks of IV antibiotics for bacteremia. Likely Ancef or per ID pharmacist --Follow final blood cultures 01/13 & 01/15 --continue IV vancomycin --If organism in blood is the same organism as coag negative staph in urine, will be oxacillin sensitive (2) Calculus, ureteral: Code(s): N20.1 - Calculus of ureter Status: Acute Assessment and Plan: 7.3 mm obstructing left ureteral stone with concomitant UTI -Urology consulted and placed a stent. Per urology note: * Plans for definitive stone intervention (ESWL versus ureteroscopy depending on if he can stop anticoagulation) in 1-2 weeks (3) Acute UTI: Code(s): N39.0 - Urinary tract infection, site not specified Status: Acute Assessment and Plan: Patient has complicated UTI Stent was placed Urine culture grew coag negative staph, which can sometimes colonize stones and suspect may be the same organism growing in blood cultures --Treating bacteremia as noted --Changed Rocephin to Vancomycin pending susceptibilities of staph epi bacteremia (4) Cardiac defibrillator in place: Code(s): Z95.810 - Presence of automatic (implantable) cardiac defibrillator Status: Chronic Assessment and Plan: -chronic and stable (5) Type 2 diabetes mellitus: Qualifiers: Diabetes mellitus complication status: without complication 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 --Will need to hold for urology, schedule based on ESWL --Monitor daily INR (7) Hypertension: Qualifiers: Hypertension type: essential hypertension Qualified Code(s): I10 - Essential (primary) hypertension Code(s): I10 - Essential (primary) hypertension Status: Chronic Assessment and Plan: -Blood pressure reviewed and stable/mildly elevated. -continue home coreg (8) Anxiety: Code(s): F41.9 - Anxiety disorder, unspecified Status: Chronic Assessment and Plan: -Continue home medications (9) Hyperlipidemia: Qualifiers: Hyperlipidemia type: unspecified Qualified Code(s): E78.5 - Hyperlipidemia, unspecified Code(s): E78.5 - Hyperlipidemia, unspecified Status: Chronic Assessment and Plan: -Chronic, continue simvastatin (10) History of DC (myocardial infarction): Code(s): I25.2 - Old myocardial infarction Status: Chronic Assessment and Plan: -Continue ASA 6/28 TTE 1. There is no definite endocarditis in this study; however the pacemaker leads are not well visualized. Would recommend clinical correlation. 2. The left ventricle is mildly dilated with moderately reduced systolic function. The left ventricular ejection fraction is visually estimated 30-40%. 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 The inferior wall is mildly hypokinetic. 3. The mitral valve leaflets are normal. There is moderate mitral regurgitation that is posteriorly directed and likely functional in etiology. Time Spent With Patient Time: 54 minutes Subjective Date/time seen: 01/17/25 09:08 Interval history: Feeling ok today. Has mild right lower abdominal pain No fevers, chills, nausea, vomiting, shortness of breath Discharge pending final blood cultures. Will need DAYANA to rule out endocarditis if both blood cultures grow the same organism since he has an implanted pacemaker Eventual stone removal with urology. Review of Systems Review of Systems: Left abdominal pain All systems reviewed & are unremarkable except as noted in HPI and below Exam Narrative: GENERAL: middle aged pain mild distress in left flank ENT: Nares clear, no rhinorrhea or epistaxis. Mucous membranes moist. NECK: Supple. CHEST: Clear to auscultation. No respiratory distress. HEART: Regular rate and rhythm. No murmur heard. Normal peripheral pulses. ABDOMEN: Soft, nontender, nondistended, normal active bowel sounds. Left lower quadrant tenderness EXTREMITIES: Normal range of motion. No edema. SKIN: Warm, dry, no rash. NEURO: No focal deficits. Alert and oriented x3 Objective Data Vital Signs Vital Signs: Vital Signs - 24 hr 01/16/25 10:03 01/16/25 14:00 01/16/25 20:45 Temperature 97.9 F 97.7 F Pulse Rate 91 97 90 Respiratory Rate 20 18 Blood Pressure 131/82 129/79 Pulse Oximetry 97 97 01/16/25 21:16 01/17/25 05:20 01/17/25 08:41 Temperature 97.9 F Pulse Rate 90 86 86 Respiratory Rate 20 Blood Pressure 133/88 Pulse Oximetry 95 Intake/Output Intake/Output: Intake & Output 01/14/25 01/15/25 01/16/25 01/17/25 23:59 23:59 23:59 23:59 Intake Total 3302 3680 3310.0 1110 Output Total 350 Balance 3302 3680 2960.0 1110 Meds/Results Medications: Active Medications Generic Name Dose Route Start Last Admin Trade Name Freq PRN Reason Stop Dose Admin Acetaminophen 1,000 mg 01/17/25 09:03 Acetaminophen 500 Mg Tablet PO Q6H PRN Mild Pain (1-3) or Fever Alprazolam 0.5 mg 01/14/25 04:35 Alprazolam (*Crx) 0.5 Mg Tablet PO BID PRN anxiety Aspirin 81 mg 01/15/25 09:00 01/17/25 08:41 Aspirin 81 Mg Enteric Tablet PO 81 mg DAILY AB Administration Carvedilol 6.25 mg 01/14/25 09:00 01/17/25 08:41 Carvedilol 6.25 Mg Tablet PO 6.25 mg Q12HR AB Administration Dextrose 12.5 gm 01/14/25 06:14 Dextrose 50% 25 Gm/50 Ml Syringe IV PUSH PRN PRN Hypoglycemia Protocol Furosemide 40 mg 01/15/25 09:00 01/17/25 08:41 Furosemide 40 Mg Tablet PO 40 mg QAM AB Administration Glucagon 1 mg 01/14/25 06:14 Glucagon For Inj 1 Mg Vial IM PRN PRN Hypoglycemia Protocol Glucose 15 gm 01/14/25 06:14 Glucose Oral Gel 15 Gm Of Glucse In 37.5 Gm Tube PO PRN PRN Hypoglycemia Protocol Hydromorphone HCl 0.5 mg 01/13/25 23:43 01/14/25 06:58 Hydromorphone Hcl Inj (*Crx) 2 Mg/Ml Vial IV PUSH 0.25 mg Q4H PRN Administration Pain Rated 7-10 Sodium Chloride 1,000 mls @ 125 mls/hr 01/13/25 23:45 01/16/25 21:16 Normal Saline Iv IV CONT 80 mls/hr .Q8H AB Administration Dextrose 1,000 mls @ 100 mls/hr 01/14/25 06:14 Dextrose 5% 1,000 Ml IVPB PRN PRN Hypoglycemia Protocol Vancomycin HCl 1,500 mg in 500 mls @ 250 mls/hr 01/17/25 04:00 01/17/25 07:00 Vancomycin 1,500 Mg/Ns 500 Ml IVPB Infused Q12H AB Infusion Insulin Aspart 4 - 8 units 01/14/25 08:00 01/17/25 08:41 Insulin Aspart (*Bkc) 100 Units/Ml SUB-Q Not Given TIDWM [facility] Protocol Insulin Aspart 20 units 01/15/25 17:00 01/17/25 08:42 Insulin Aspart Mix 70/30 100 Units/Ml SUB-Q 20 units BIDWM AB Administration Lisinopril 10 mg 01/15/25 09:00 01/17/25 08:41 Lisinopril 10 Mg Tablet PO 10 mg DAILY AB Administration Morphine Sulfate 4 mg 01/13/25 23:43 01/15/25 00:06 Morphine Sulfate (*Crx) 4 Mg/Ml Inj IV PUSH 4 mg Q2H PRN Administration Pain Rated 7-10 Multivitamins Therapeutic 1 tablet 01/15/25 09:00 01/17/25 08:41 Multivitamins Therapeutic Tab (*Bkc) PO 1 tablet DAILY AB Administration Ondansetron HCl 4 mg 01/13/25 23:43 Ondansetron Inj 4 Mg/2 Ml Vial IV PUSH Q4H PRN Nausea Simvastatin 20 mg 01/15/25 09:00 01/17/25 08:41 Simvastatin 20 Mg Tablet PO 20 mg DAILY AB Administration Radiology Results: ITS Impressions Abdomen/Pelvis CT 01/13/25 23:00 IMPRESSION: Moderate left-sided hydroureteronephrosis secondary to a 7.3 mm calculus in the proximal left ureter. Labs Labs: Laboratory Results - last 24 hr 01/16/25 01/16/25 01/16/25 11:32 16:53 20:48 WBC RBC Hgb Hct MCV MCH MCHC RDW Plt Count MPV Immature Gran % (Auto) Neut % (Auto) Lymph % (Auto) [place] % (Auto) Eos % (Auto) Baso % (Auto) Lymph # (Auto) [place] # (Auto) Eos # (Auto) Baso # (Auto) Abs Immat Gran (auto) Absolute Neuts (auto) Absolute Nucleated RBC Nucleated RBC % ESR PT INR Sodium Potassium Chloride Carbon Dioxide Anion Gap BUN Creatinine Estim Creat Clear Calc Estimated GFR Glucose POC Capillary Glucose 135 H 103 159 H Calcium Phosphorus Magnesium Total Bilirubin AST ALT Alkaline Phosphatase C-Reactive Protein Total Protein Albumin 01/17/25 01/17/25 06:21 08:05 WBC 6.9 RBC 4.45 L Hgb 13.2 L Hct 41.4 L MCV 93.0 MCH 29.7 MCHC 31.9 L RDW 15.0 H Plt Count 191 MPV 10.8 H Immature Gran % (Auto) 0.4 Neut % (Auto) 60.5 Lymph % (Auto) 22.7 [place] % (Auto) 10.5 H Eos % (Auto) 5.2 H Baso % (Auto) 0.7 Lymph # (Auto) 1.57 [place] # (Auto) 0.7 H Eos # (Auto) 0.4 H Baso # (Auto) 0.1 Abs Immat Gran (auto) 0.03 Absolute Neuts (auto) 4.2 Absolute Nucleated RBC 0.000 Nucleated RBC % 0.0 ESR 22 H PT 14.2 INR 1.1 Sodium 142 Potassium 3.3 L Chloride 110 H Carbon Dioxide 24 Anion Gap 8 BUN 15 Creatinine 0.91 Estim Creat Clear Calc 96 Estimated GFR > 60 Glucose 105 POC Capillary Glucose 117 H Calcium 8.5 Phosphorus 2.9 Magnesium 1.9 Total Bilirubin 0.8 AST 43 ALT 27 Alkaline Phosphatase 57 C-Reactive Protein 5.8 H Total Protein 6.5 Albumin 3.7 Quality VTE Prophylaxis VTE prophylaxis: mechanical ordered Hospitalist MIPS Advance Care Plan I have confirmed that the patient's Advanced Care Plan is present, code status is documented, or surrogate decision maker is listed in patient medical record.: Yes Medication Reconciliation I have utilized all available resources to obtain, update and review the patients current medications (includes all prescriptions, OTC, herbals, cannabis, and nutritional supplements).: Yes
[2025-01-17] MEDS: ACETAMINOPHEN 500 MG TABLET 1000 MG PO (10:20)
[2025-01-17] MEDS: INSULIN ASPART (*BKC) 100 UNITS/ML SUB-Q (12:45)
[2025-01-17 14:00] VITALS: BP 138/88; PULSE 90; RESP 18; TEMP 36.5; O2SAT 96
[2025-01-17] MEDS: SODIUM CHLORIDE 0.9% IV 1,000 ML 125 ML IV CONT (15:33)
[2025-01-17] MEDS: POTASSIUM CHLORIDE 20 MEQ ER TABLET 40 MEQ PO (15:33)
[2025-01-17 20:05] VITALS: BP 144/90; PULSE 89; RESP 18; TEMP 36.3; O2SAT 97
[2025-01-17] MEDS: WARFARIN (*PBKC) 7.5 MG TABLET PO (21:27)
[2025-01-17] MEDS: SENNOSIDES 8.6 MG TABLET PO (22:12)
[2025-01-18] MEDS: SODIUM CHLORIDE 0.9% IV 1,000 ML 125 ML IV CONT ×2 (00:30→15:12)
[2025-01-18 03:06] LABS: Hematocrit 39.4 % (42.0-52.0); Hemoglobin 12.8 g/dL (14.0-18.0); Immature Granulocyte Percent A 0.5 % (0-0.5); Lymphocytes Absolute Auto 1.91 K/mm3 (0.9-3.2); Mean Corpuscular HGB Conc 32.5 g/dl (32-36); Mean Corpuscular Hemoglobin 29.8 pg (26-34); Mean Corpuscular Volume 91.8 fl (80-100); Nucleated Red Blood Cells Absolute Auto 0.000 K/mm3 (0.0-0.012); Nucleated Red Blood Cells Perc 0.0 % (0.0-0.2); Platelet Count Result 179 k/mm3 (150-375); Red Blood Count 4.29 M/mm3 (4.6-6.20); White Blood Count 6.3 K/mm3 (4.5-10.0)
[2025-01-18 03:19] LABS: INR 1.1; Prothrombin Time 14.1 Seconds (11.1-14.7)
[2025-01-18 03:32] LABS: Alanine Aminotransferase 28 U/L (6-50); Albumin Level 3.3 g/dL (3.5-5.1); Alkaline Phosphatase 61 U/L (38-126); Anion Gap 8 mmol/L (4-12); Aspartate Amino Transferase 34 U/L (17-59); Bilirubin,Total 0.7 mg/dL (0.2-1.3); Blood Urea Nitrogen 11 mg/dL (9-20); Calcium 8.4 mg/dL (8.4-10.2); Carbon Dioxide 21 mmol/L (22-30); Chloride 113 mmol/L (98-107); Estimated CRCL calculation 107 ml/min; Estimated Glomerular Filt Rate > 60; Glucose 106 mg/dL (65-110); Magnesium 1.7 mg/dL (1.6-2.3); Potassium 3.3 mmol/L (3.4-5.0); Sodium 142 mmol/L (137-145); Total Protein 6.0 g/dL (6.3-8.2)
[2025-01-18 04:30] VITALS: BP 138/90; PULSE 85; RESP 18; TEMP 35.6; O2SAT 95
[2025-01-18] MEDS: VANCOMYCIN 2,000 MG/NS 500 ML 2,000 MG/500 ML BAG 250 MG IVPB (06:15)
[2025-01-18] MEDS: SIMVASTATIN 20 MG TABLET PO (09:27)
[2025-01-18] MEDS: MULTIVITAMINS THERAPEUTIC TAB (*BKC) 1 TABLET PO (09:27)
[2025-01-18] MEDS: ASPIRIN 81 MG ENTERIC TABLET PO (09:27)
[2025-01-18] MEDS: FUROSEMIDE 40 MG TABLET PO (09:27)
[2025-01-18] MEDS: INSULIN ASPART MIX 70/30 100 UNITS/ML 20 UNITS SUB-Q ×2 (09:30→18:27)
--- NOTE | 2025-01-18 11:17 | P.PNIM_ITS ---
Progress Note: A&P Assessment and Plan (1) Bacteremia: Code(s): R78.81 - Bacteremia Status: Acute Plan (1) Bacteremia: Code(s): R78.81 - Bacteremia Status: Acute Assessment and Plan: patient was afebrile overnight, blood pressure stable, no O2 desaturation room air Blood culture grows Staphylococcus epidermidis on January 13, repeat blood culture January 15 has no grows bacteria changed to Ancef IV per ID pharmacist recommendation 01/16 TTE 1. There is no definite endocarditis in this study; however the pacemaker leads are not well visualized. 2. The left ventricle is mildly dilated with moderately reduced systolic function. The left ventricular ejection fraction is visually estimated 30-40%. 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 The inferior wall is mildly hypokinetic. 3. The mitral valve leaflets are normal. There is moderate mitral regurgitation that is posteriorly directed and likely functional in etiology patient has risk of endocarditis, consult software configuration manager for evaluation treatment (2) Calculus, ureteral: Code(s): N20.1 - Calculus of ureter Status: Acute Assessment and Plan: 7.3 mm obstructing left ureteral stone with concomitant UTI -Urology consulted and placed a stent. Per urology note: Plans for definitive stone intervention (ESWL versus ureteroscopy depending on if he can stop anticoagulation) in 1-2 weeks (3) Acute UTI: Code(s): N39.0 - Urinary tract infection, site not specified Status: Acute Assessment and Plan: Patient has complicated UTI Stent was placed Urine culture grew coag negative staph, which can sometimes colonize stones and suspect may be the same organism growing in blood cultures --Treating bacteremia as noted urine culture grows grow coagulase-negative Staph changed to Ancef IV (4) chronic systolic heart failure Cardiac defibrillator in place: Code(s): Z95.810 - Presence of automatic (implantable) cardiac defibrillator Status: Chronic Assessment and Plan: -chronic and stable Continue furosemide 40 mg daily p.o. (5) Type 2 diabetes mellitus: Qualifiers: Diabetes mellitus complication status: without complication Diabetes me llitus intermission coordinator insulin use: with intermission coordinator use Qualified Code(s): E11.9 - Type 2 diabetes mellitus without complications; Z79.4 - FDC (current) use of insulin Code(s): E11.9 - Type 2 diabetes mellitus without complications Status: Chronic Assessment and Plan: -accuchecks, ssi (6) Atrial fibrillation: Qualifiers: Atrial fibrillation type: permanent Qualified Code(s): I48.21 - Permanent atrial fibrillation Code(s): I48.91 - Unspecified atrial fibrillation Status: Chronic Assessment and Plan: -Pacer/Defib in place -coumadin for anticoagulation, resume. --Will need to hold for urology, schedule based on ESWL --Monitor daily INR (7) Hypertension: Qualifiers: Hypertension type: essential hypertension Qualified Code(s): I10 - Essential (primary) hypertension Code(s): I10 - Essential (primary) hypertension Status: Chronic Assessment and Plan: -Blood pressure reviewed and stable/mildly elevated. -continue home coreg (8) Anxiety: Code(s): F41.9 - Anxiety disorder, unspecified Status: Chronic Assessment and Plan: -Continue home medications (9) Hyperlipidemia: Qualifiers: Hyperlipidemia type: unspecified Qualified Code(s): E78.5 - Hyperlipidemia, unspecified Code(s): E78.5 - Hyperlipidemia, unspecified Status: Chronic Assessment and Plan: -Chronic, continue simvastatin (10) History of NV (myocardial infarction): Code(s): I25.2 - Old myocardial infarction Status: Chronic Assessment and Plan: -Continue ASA Subjective Date/time seen: 01/18/25 11:17 Interval history: patient was afebrile overnight, blood pressure stable, no O2 desaturation room air Blood culture grows Staphylococcus epidermidis on January 13, repeat blood culture January 15 has no grows bacteria urine culture grows grow coagulase-negative Staph Exam Narrative: GENERAL: middle aged pain mild distress in left flank ENT: Nares clear, no rhinorrhea or epistaxis. Mucous membranes moist. NECK: Supple. CHEST: Clear to auscultation. No respiratory distress. HEART: Regular rate and rhythm. No murmur heard. Normal peripheral pulses. ABDOMEN: Soft, nontender, nondistended, normal active bowel sounds. Left lower quadrant tenderness EXTREMITIES: Normal range of motion. No edema. SKIN: Warm, dry, no rash. NEURO: No focal deficits. Alert and oriented x3 Objective Data Vital Signs Vital Signs: Vital Signs - 24 hr 01/17/25 14:00 01/17/25 20:05 01/18/25 04:30 Temperature 97.7 F 97.4 F L 96.1 F L Pulse Rate 90 89 85 Respiratory Rate 18 18 18 Blood Pressure 138/88 144/90 H 138/90 Pulse Oximetry 96 97 95 Oxygen Delivery 01/18/25 08:00 Temperature Pulse Rate Respiratory Rate Blood Pressure Pulse Oximetry Oxygen Delivery Room Air Intake/Output Intake/Output: Intake & Output 01/15/25 01/16/25 01/17/25 01/18/25 23:59 23:59 23:59 23:59 Intake Total 3680 3310.0 4390 1208 Output Total 350 300 Balance 3680 2960.0 4390 908 Meds/Results Medications: Active Medications Generic Name Dose Route Start Last Admin Trade Name Freq PRN Reason Stop Dose Admin Acetaminophen 1,000 mg 01/17/25 09:03 01/17/25 10:20 Acetaminophen 500 Mg Tablet PO 1,000 mg Q6H PRN Administration Mild Pain (1-3) or Fever Alprazolam 0.5 mg 01/14/25 04:35 Alprazolam (*Crx) 0.5 Mg Tablet PO BID PRN anxiety Aspirin 81 mg 01/15/25 09:00 01/18/25 09:27 Aspirin 81 Mg Enteric Tablet PO 81 mg DAILY AB Administration Carvedilol 6.25 mg 01/14/25 09:00 01/18/25 09:27 Carvedilol 6.25 Mg Tablet PO 6.25 mg Q12HR AB Administration Dextrose 12.5 gm 01/14/25 06:14 Dextrose 50% 25 Gm/50 Ml Syringe IV PUSH PRN PRN Hypoglycemia Protocol Furosemide 40 mg 01/15/25 09:00 01/18/25 09:27 Furosemide 40 Mg Tablet PO 40 mg QAM AB Administration Glucagon 1 mg 01/14/25 06:14 Glucagon For Inj 1 Mg Vial IM PRN PRN Hypoglycemia Protocol Glucose 15 gm 01/14/25 06:14 Glucose Oral Gel 15 Gm Of Glucse In 37.5 Gm Tube PO PRN PRN Hypoglycemia Protocol Hydromorphone HCl 0.5 mg 01/13/25 23:43 01/14/25 06:58 Hydromorphone Hcl Inj (*Crx) 2 Mg/Ml Vial IV PUSH 0.25 mg Q4H PRN Administration Pain Rated 7-10 Sodium Chloride 1,000 mls @ 125 mls/hr 01/13/25 23:45 01/18/25 09:28 Normal Saline Iv IV CONT Not Given .Q8H [facility] Dextrose 1,000 mls @ 100 mls/hr 01/14/25 06:14 Dextrose 5% 1,000 Ml IVPB PRN PRN Hypoglycemia Protocol Cefazolin Sodium 2 gm in 50 mls @ 100 mls/hr 01/18/25 14:00 Ancef 2 Gm/D5w 50 Ml IVPB Q8HR [facility] Insulin Aspart 4 - 8 units 01/14/25 08:00 01/18/25 09:28 Insulin Aspart (*Bkc) 100 Units/Ml SUB-Q Not Given TIDWM [facility] Protocol Insulin Aspart 20 units 01/15/25 17:00 01/18/25 09:30 Insulin Aspart Mix 70/30 100 Units/Ml SUB-Q 20 units BIDWM [facility] Administration Lisinopril 10 mg 01/15/25 09:00 01/18/25 09:27 Lisinopril 10 Mg Tablet PO 10 mg DAILY [facility] Administration Morphine Sulfate 4 mg 01/13/25 23:43 01/15/25 00:06 Morphine Sulfate (*Crx) 4 Mg/Ml Inj IV PUSH 4 mg Q2H PRN Administration Pain Rated 7-10 Multivitamins Therapeutic 1 tablet 01/15/25 09:00 01/18/25 09:27 Multivitamins Therapeutic Tab (*Bkc) PO 1 tablet DAILY [facility] Administration Ondansetron HCl 4 mg 01/13/25 23:43 Ondansetron Inj 4 Mg/2 Ml Vial IV PUSH Q4H PRN Nausea Polyethylene Glycol 17 gm 01/17/25 21:53 Polyethylene Glycol 3350 17 Gm Powd.Pack PO QAM PRN Constipation Senna 8.6 mg 01/17/25 21:50 01/17/25 22:12 Sennosides 8.6 Mg Tablet PO 8.6 mg HS PRN Administration Constipation Simvastatin 20 mg 01/15/25 09:00 01/18/25 09:27 Simvastatin 20 Mg Tablet PO 20 mg DAILY [facility] Administration Warfarin Sodium 7.5 mg 01/17/25 17:00 01/17/25 21:27 Warfarin (*Pbkc) 7.5 Mg Tablet PO 7.5 mg SuMoWeThSa AB Administration Warfarin Sodium 2.5 mg 01/19/25 17:00 Warfarin (*Pbkc) 2.5 Mg Tablet PO TuFr [facility] Warfarin Sodium 10 mg 01/19/25 17:00 Warfarin (*Pbkc) 10 Mg Tablet PO TuFr [facility] Radiology Results: ITS Impressions Abdomen/Pelvis CT 01/13/25 23:00 IMPRESSION: Moderate left-sided hydroureteronephrosis secondary to a 7.3 mm calculus in the proximal left ureter. Labs Labs: Laboratory Results - last 24 hr 01/17/25 01/17/25 01/17/25 11:26 16:42 20:10 WBC RBC Hgb Hct MCV MCH MCHC RDW Plt Count MPV Immature Gran % (Auto) Neut % (Auto) Lymph % (Auto) [place] % (Auto) Eos % (Auto) Baso % (Auto) Lymph # (Auto) [place] # (Auto) Eos # (Auto) Baso # (Auto) Abs Immat Gran (auto) Absolute Neuts (auto) Absolute Nucleated RBC Nucleated RBC % PT INR Sodium Potassium Chloride Carbon Dioxide Anion Gap BUN Creatinine Estim Creat Clear Calc Estimated GFR Glucose POC Capillary Glucose 300 H 78 172 H Calcium Phosphorus Magnesium Total Bilirubin AST ALT Alkaline Phosphatase Total Protein Albumin Vancomycin Trough 01/18/25 01/18/25 02:59 07:31 WBC 6.3 RBC 4.29 L Hgb 12.8 L Hct 39.4 L MCV 91.8 MCH 29.8 MCHC 32.5 RDW 15.0 H Plt Count 179 MPV 10.2 Immature Gran % (Auto) 0.5 Neut % (Auto) 51.0 Lymph % (Auto) 30.4 York % (Auto) 10.7 H Eos % (Auto) 6.4 H Baso % (Auto) 1.0 Lymph # (Auto) 1.91 York # (Auto) 0.7 H Eos # (Auto) 0.4 H Baso # (Auto) 0.1 Abs Immat Gran (auto) 0.03 Absolute Neuts (auto) 3.2 Absolute Nucleated RBC 0.000 Nucleated RBC % 0.0 PT 14.1 INR 1.1 Sodium 142 Potassium 3.3 L Chloride 113 H Carbon Dioxide 21 L Anion Gap 8 BUN 11 Creatinine 0.81 Estim Creat Clear Calc 107 Estimated GFR > 60 Glucose 106 POC Capillary Glucose 127 H Calcium 8.4 Phosphorus 3.3 Magnesium 1.7 Total Bilirubin 0.7 AST 34 ALT 28 Alkaline Phosphatase 61 Total Protein 6.0 L Albumin 3.3 L Vancomycin Trough 12.1
--- NOTE | 2025-01-18 13:17 | P.CDI_ITS ---
CDI Query Clarification Request Bacteremia has been documented, using the CDC definitions below, please clarify the appropriate diagnosis for your patients clinical presentation and severity of illness. * Septicemia: Systemic disease (sepsis) associated with positive blood cultures. * Sepsis: An infection-induced syndrome without organ dysfunction. * Severe Sepsis: Sepsis with associated acute organ dysfunction. * Septic Shock: Severe sepsis in which the cardiovascular system begins to fail, blood pressure drops, and vital organs are deprived of adequate blood supply. The medical chart reflects the following: Narrative: This is a 64-year-old male patient was admitted to the hospital for obstructing left ureteral stone with hydronephrosis and urinary of UTI. Patient has complaining urinary frequency for about a month. States he developed left flank pain radiating to the left lower quadrant abdomen with nausea. He also subjective fever. He has had prior kidney stones but has not previously required intervention. Workup in the emergency department revealed elevated white blood cell count 11.7 creatinine 1.33 with an estimated GFR 54, a lactic acid of 2.1. CT scan abdomen and pelvis showed obstructing proximal left ureteral stone 7.3 mm hydronephrosis. Urinalysis with multiple findings consistent UTI including positive nitrates 3+ leukocyte esterase greater wbc's and 4+ urine bacteria squamous cells. Urology was consulted by the ER and instructed to keep patient NPO after midnight for expected OR for ureteral stent placement. (1) Bacteremia: Code(s): R78.81 - Bacteremia Status: Acute Assessment and Plan: 01/13 Blood cultures 01/13 Staph epi. 2nd bottle GPC in clusters. Identification and susceptibilities to follow 01/15 blood cultures NGTD 01/16 TTE no evidence of endocarditis but not conclusive --If both organisms staph epi, needs a DAYANA to rule out endocarditis since he has a defibrillator. If negative for endocarditis will need a PICC and 2 weeks of IV antibiotics for bacteremia. Likely Ancef or per ID pharmacist --Follow final blood cultures 01/13 & 01/15 --continue IV vancomycin --If organism in blood is the same organism as coag negative staph in urine, will be oxacillin sensitive (1) Bacteremia: Code(s): R78.81 - Bacteremia Status: Acute Plan (1) Bacteremia: Code(s): R78.81 - Bacteremia Status: Acute Assessment and Plan: patient was afebrile overnight, blood pressure stable, no O2 desaturation room air Blood culture grows Staphylococcus epidermidis on January 13, repeat blood culture January 15 has no grows bacteria changed to Ancef IV per ID pharmacist recommendation 01/16 TTE 1. There is no definite endocarditis in this study; however the pacemaker leads are not well visualized. 2. The left ventricle is mildly dilated with moderately reduced systolic function. The left ventricular ejection fraction is visually estimated 30-40%. 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 The inferior wall is mildly hypokinetic. 3. The mitral valve leaflets are normal. There is moderate mitral regurgitation that is posteriorly directed and likely functional in etiology patient has risk of endocarditis, consult environmental consultant for evaluation treatment (2) Calculus, ureteral: Code(s): N20.1 - Calculus of ureter Status: Acute Assessment and Plan: 7.3 mm obstructing left ureteral stone with concomitant UTI -Urology consulted and placed a stent. Per urology note: Plans for definitive stone intervention (ESWL versus ureteroscopy depending on if he can stop anticoagulation) in 1-2 weeks (3) Acute UTI: Code(s): N39.0 - Urinary tract infection, site not specified Status: Acute Assessment and Plan: Patient has complicated UTI Stent was placed Urine culture grew coag negative staph, which can sometimes colonize stones and suspect may be the same organism growing in blood cultures --Treating bacteremia as noted urine culture grows grow coagulase-negative Staph changed to Ancef IV Lactic: 01/13: 2.1 01/14: 2.1, 1.5 WBC: 01/13: 11.7 01/14: 12.5 01/13 Pulse 104 continued to stay elevated b/p: 146/92 01/14 elevated temp documented at 99.9 at 12:25 with pulse 111 and B/P: 137/77 with documented o2 needs IV abx <Denisa Gaxiola RN - Last Filed: 01/18/25 13:23> Provider Comments Severe Sepsis: Sepsis with associated acute renal dysfunction. <Kemi Andrews MD - Last Filed: 01/18/25 14:19>
[2025-01-18 14:00] VITALS: BP 133/85; PULSE 86; RESP 18; TEMP 36.8; O2SAT 97
[2025-01-18] MEDS: ceFAZolin 2 GM/D5W 50 ML 2 GM/50 ML BAG IVPB ×2 (15:12→21:49)
[2025-01-18] MEDS: WARFARIN (*PBKC) 7.5 MG TABLET PO (18:27)
[2025-01-18] MEDS: ONDANSETRON INJ 4 MG/2 ML VIAL IV PUSH (18:29)
[2025-01-18 20:22] VITALS: BP 132/83; PULSE 94; RESP 18; TEMP 36.2; O2SAT 97
[2025-01-18] MEDS: HYDROCORTISONE 1% 30 GM OINTMENT 1 APPLIC TOPICAL (21:49)
[2025-01-19] VITALS (8 sets, daily range): BP systolic 127–151; BP diastolic 79–98; PULSE 86–93; RESP 14–18; TEMP 36.4–36.6; O2SAT 93–99
--- NOTE | 2025-01-19 | ECHO_ITS ---
Patient Info Name: Christos Gamboa Age: 64 years : 1960 Gender: Male Ht: 73 in Wt: 262 lbs BSA: 2.51 m2 Technical Quality: Good Exam Date: 01/19/2025 1:09 PM Patient Status: I Admit Date: 01/15/2025 Exam Type: CA echo transesophageal Complete two-dimensional, color flow and Doppler transesophageal study is performed. Staff Referring Physician: Grabiel Odonnell M.D. Bank President: Susana Lockwood Attending Provider: Shayna Castellano Summary 1. Normal left ventricular systolic function with no regional wall motion abnormalities. 2. Estimated EF 55-60%. 3. Normal RV size and function. 4. Pacemaker lead seen in the right atrium and right ventricle. Taking leads seen, no vegetation seen. Few collagen strands seen. 5. Moderate to severe eccentric posteriorly directed mitral regurgitation. 6. No vegetation seen in either the aortic, mitral, tricuspid and pulmonary valves. 7. See detailed report in prior transthoracic exam. 8. No PFO seen. Left Ventricle Normal left ventricular systolic function with no regional wall motion abnormalities. Estimated EF 55-60%. Right Ventricle Normal RV size and function. Right ventricle is not well visualized. Left Atria No PFO seen. Right Atria Pacemaker lead seen in the right atrium and right ventricle. Taking leads seen, no vegetation seen. Few collagen strands seen. Aortic Valve No vegetations seen the aortic valve. Trace aortic regurgitation. Pulmonic Valve No vegetation seen on the pulmonary valve. Mitral Valve No vegetations seen on the mitral valve. Moderate to severe eccentric posteriorly directed mitral regurgitation. Tricuspid Valve No vegetation seen on the tricuspid valve. Report Signatures
[2025-01-19 06:19] LABS: Hematocrit 40.7 % (42.0-52.0); Hemoglobin 12.7 g/dL (14.0-18.0); Immature Granulocyte Percent A 0.5 % (0-0.5); Lymphocytes Absolute Auto 1.61 K/mm3 (0.9-3.2); Mean Corpuscular HGB Conc 31.2 g/dl (32-36); Mean Corpuscular Hemoglobin 29.7 pg (26-34); Mean Corpuscular Volume 95.1 fl (80-100); Nucleated Red Blood Cells Absolute Auto 0.000 K/mm3 (0.0-0.012); Nucleated Red Blood Cells Perc 0.0 % (0.0-0.2); Platelet Count Result 182 k/mm3 (150-375); Red Blood Count 4.28 M/mm3 (4.6-6.20); White Blood Count 6.7 K/mm3 (4.5-10.0)
[2025-01-19 06:27] LABS: INR 1.1; Prothrombin Time 14.3 Seconds (11.1-14.7)
[2025-01-19 06:28] LABS: Alanine Aminotransferase 30 U/L (6-50); Albumin Level 3.6 g/dL (3.5-5.1); Alkaline Phosphatase 69 U/L (38-126); Anion Gap 7 mmol/L (4-12); Aspartate Amino Transferase 40 U/L (17-59); Bilirubin,Total 0.5 mg/dL (0.2-1.3); Blood Urea Nitrogen 10 mg/dL (9-20); Calcium 8.4 mg/dL (8.4-10.2); Carbon Dioxide 24 mmol/L (22-30); Chloride 111 mmol/L (98-107); Estimated CRCL calculation 106 ml/min; Estimated Glomerular Filt Rate > 60; Glucose 109 mg/dL (65-110); Magnesium 1.7 mg/dL (1.6-2.3); Potassium 3.3 mmol/L (3.4-5.0); Sodium 142 mmol/L (137-145); Total Protein 6.3 g/dL (6.3-8.2)
[2025-01-19] MEDS: ceFAZolin 2 GM/D5W 50 ML 2 GM/50 ML BAG IVPB ×3 (06:30→21:03)
[2025-01-19] MEDS: SODIUM CHLORIDE 0.9% IV 1,000 ML 125 ML IV CONT (06:30)
--- NOTE | 2025-01-19 12:43 | WPDANESEPPF ---
Anes - Initial Pre Proc Eval Procedure: Operation Date: 01/14/25 13:45 Proposed Procedures p Cystoscopy, Left Stent Placement(Left) - Grabiel Odonnell MD Operation Date: 01/19/25 14:00 Proposed Procedures p Trans Esophageal Echo - Tobin Agarwal MD Date/Time: 01/19/25 12:43 Surgeon: Shayna Castellano MD Pre Op Diagnosis: Left ureteral stone, UTI Patient Data Age: 64 Gender: M Height: 1.85 m Weight: 119.2 kg Last Vital Signs Temp 36.6 C 01/19/25 05:28 Pulse 86 01/19/25 05:28 Resp 16 01/19/25 05:28 BP 127/84 01/19/25 05:28 Pulse Ox 94 01/19/25 08:00 O2 Del Method Room Air 01/19/25 08:00 O2 Flow Rate 2 01/14/25 14:45 Allergies Allergy/AdvReac Type Severity Reaction Status Date / Time grass pollen Allergy Mild Itching Verified 01/13/25 19:53 Home Medications ?Medication ?Instructions ?Recorded ?Confirmed ?Type aspirin 81 mg tablet,delayed 81 mg PO DAILY 07/19/20 01/14/25 History release carvedilol 6.25 mg tablet 6.25 mg PO Q12H 07/19/20 01/14/25 History furosemide 40 mg tablet 40 mg PO QAM 07/19/20 01/14/25 History lisinopril 10 mg tablet 10 mg PO DAILY 07/19/20 01/14/25 History mecobalamin (vitamin B12) 1,000 1,000 mcg PO DAILY 07/19/20 01/14/25 History mcg chewable tablet multivitamin 1 tablet PO DAILY 07/19/20 01/14/25 History omega-3 fatty acids 1,000 mg 1,000 mg PO DAILY 07/19/20 01/14/25 History capsule (Fish Oil Concentrate) warfarin 10 mg tablet 10 mg PO .COMPLEX 07/19/20 01/14/25 History warfarin 7.5 mg tablet 7.5 mg PO .COMPLEX 07/19/20 01/14/25 History blood-glucose meter (OneTouch #1 ea 01/31/21 01/14/25 Rx Verio IQ Meter kit) lancets (OneTouch UltraSoft #200 ea 04/27/21 01/14/25 Rx Lancets) ascorbate calcium (vitamin C) 500 500 mg PO DAILY 06/07/21 01/14/25 History mg tablet pen needle, diabetic 32 gauge x #100 ea 07/24/21 01/14/25 Rx /32 (BD Ultra-Fine Kathleen Pen Needle) blood sugar diagnostic (OneTouch #100 ea 08/18/21 01/14/25 Rx Verio test strips) simvastatin 20 mg tablet 20 mg PO DAILY 08/13/22 01/14/25 History warfarin 2.5 mg tablet 2.5 mg PO .COMPLEX 11/13/22 01/14/25 History empagliflozin 25 mg tablet 25 mg PO DAILY #90 tabs 02/14/23 01/14/25 Rx (Jardiance) insulin aspar prot-insulin aspart 20 unit subcut BID 02/14/23 01/14/25 History 100 unit/mL (70-30) subcutaneous pen (Novolog Mix 70-30FlexPen U-100) tadalafil 20 mg tablet (Cialis) 20 mg PO DAILY PRN sexual activity 09/10/23 01/14/25 Rx #8 tabs metformin 500 mg tablet,extended See Rx Instructions .Route 05/29/24 01/14/25 Rx release 24 hr .COMPLEX #360 tabs semaglutide 2 mg/dose (8 mg/3 mL) 2 mg (0.75 mL) subcut WEEKLY #9 mL 09/10/24 01/14/25 Rx subcutaneous pen injector (Ozempic) alprazolam 0.5 mg tablet 0.5 mg PO BID PRN anxiety #180 tabs 12/31/24 01/14/25 Rx cholecalciferol (vitamin D3) 125 125 mcg PO DAILY #90 caps 01/18/25 Rx mcg (5,000 unit) capsule Laboratory Tests 01/18/25 01/18/25 01/19/25 16:51 19:45 06:01 WBC 6.7 K/mm3 (4.5-10.0) RBC 4.28 L M/mm3 (4.6-6.20) Hgb 12.7 L g/dL (14.0-18.0) Hct 40.7 L % (42.0-52.0) MCV 95.1 fl (80-100) MCH 29.7 pg (26-34) MCHC 31.2 L g/dl (32-36) RDW 14.9 H % (11.5-14.5) Plt Count 182 k/mm3 (150-375) MPV 10.3 fl (7.4-10.4) Immature Gran % (Auto) 0.5 % (0-0.5) Neut % (Auto) 60.0 % (45.5-73.1) Lymph % (Auto) 24.2 % (18.3-44.2) Todd % (Auto) 9.3 H % (2.6-8.5) Eos % (Auto) 5.1 H % (0-4.4) Baso % (Auto) 0.9 % (0.2-1.2) Lymph # (Auto) 1.61 K/mm3 (0.9-3.2) Todd # (Auto) 0.6 K/mm3 (0.1-0.6) Eos # (Auto) 0.3 K/mm3 (0-0.3) Baso # (Auto) 0.1 K/mm3 (0.0-0.1) Abs Immat Gran (auto) 0.03 K/mm3 (0.00-0.031) Absolute Neuts (auto) 4.0 K/mm3 (1.3-6.7) Absolute Nucleated RBC 0.000 K/mm3 (0.0-0.012) Nucleated RBC % 0.0 % (0.0-0.2) PT 14.3 Seconds (11.1-14.7) INR 1.1 Sodium 142 mmol/L (137-145) Potassium 3.3 L mmol/L (3.4-5.0) Chloride 111 H mmol/L (98-107) Carbon Dioxide 24 mmol/L (22-30) Anion Gap 7 mmol/L (4-12) BUN 10 mg/dL (9-20) Creatinine 0.82 mg/dL (0.7-1.3) Estim Creat Clear Calc 106 ml/min Estimated GFR > 60 (59 - ) Glucose 109 mg/dL (65-110) POC Capillary Glucose 88 mg/dl 161 H mg/dl (65-105) (65-105) Calcium 8.4 mg/dL (8.4-10.2) Phosphorus 3.2 mg/dL (2.5-4.5) Magnesium 1.7 mg/dL (1.6-2.3) Total Bilirubin 0.5 mg/dL (0.2-1.3) AST 40 U/L (17-59) ALT 30 U/L (6-50) Alkaline Phosphatase 69 U/L (38-126) Total Protein 6.3 g/dL (6.3-8.2) Albumin 3.6 g/dL (3.5-5.1) 01/19/25 01/19/25 07:51 11:28 WBC RBC Hgb Hct MCV MCH MCHC RDW Plt Count MPV Immature Gran % (Auto) Neut % (Auto) Lymph % (Auto) Todd % (Auto) Eos % (Auto) Baso % (Auto) Lymph # (Auto) Todd # (Auto) Eos # (Auto) Baso # (Auto) Abs Immat Gran (auto) Absolute Neuts (auto) Absolute Nucleated RBC Nucleated RBC % PT INR Sodium Potassium Chloride Carbon Dioxide Anion Gap BUN Creatinine Estim Creat Clear Calc Estimated GFR Glucose POC Capillary Glucose 132 H mg/dl 104 mg/dl (65-105) (65-105) Calcium Phosphorus Magnesium Total Bilirubin AST ALT Alkaline Phosphatase Total Protein Albumin Patient hx anesthesia problems: none Family hx anesthesia problems: none Results Review: All pre-operative results and documents have been reviewed as part of the pre-operative evaluation. [facility] Past Medical History Medical History COVID Type 2 diabetes mellitus Other fatigue CAD (coronary artery disease) Hyperlipidemia Hypertension Obesity (BMI 35.0-39.9 without comorbidity) Anxiety History of AK (myocardial infarction) Heart disease Surgical History Surgical History History of heart artery stent Cardiac defibrillator in place Family History Family History Father Heart disease Acute myocardial infarction Mother No known problems Acute myocardial infarction Sibling Heart disease Asthma Social History Social History Smoking packs per day: 1 Smoking cigarettes per day: 20.0 Years smoked: 20 Smoking pack-years: 20.00 Smoking status: Former smoker Second hand tobacco smoke exposure: Yes Smoking end date: 07/22/04 Alcohol intake: never Substance use: never Substance use type: does not use Do You Feel Safe in your Home?: Yes Lack of Transportation: No Lack of Food: Never True Current Housing: I Have Housing Concerned About Future Housing: No Difficulty Paying Gas/Electric Bills: No Difficulty Paying for Meds: No Currently Unemployed: No Education: High School Diploma/GED Difficulty w/ Childcare or Family Care: No Living arrangements: with family 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 Gender identity (if verbalized by the patient): Male Spiritual care concerns: No Anes - Eval Final PreProcedure Day of Procedure 01/19/25 12:43 Patient weight: obese Heart: regular rate and rhythm Lungs: clear to auscultation Airway: Mallampati scale class II Neurological: alert and oriented Last oral intake: >/= 8 hours ASA classification: III Emergent: no Anesthetic plan: proceed Anesthesia type and monitoring: general GIVS and standard monitoring Results Review: All pre-operative results and documents have been reviewed as part of the pre-operative evaluation. Informed Consent: The patient's anesthetic plan and its attendant risks and benefits were discussed with the patient/family/POA. Questions were solicited and answers provided to the satisfaction of the patient/family/POA.
--- NOTE | 2025-01-19 13:52 | WPDTEECHO ---
DAYANA TransEsophageal Echocardiogram Date of procedure: 01/19/25 Procedure Type: Transesophageal echocardiogram Diagnosis: Bacteremia Indications: Bacteremia Image Quality: Fair, RV was not well visualized Findings: 1. Normal LV systolic function 2. Moderate-severe mitral regurgitation, posteriorly directed 3. No vegetation seen in the mitral, aortic, tricuspid open the valves 4. Take and pacemaker lead seen, collagen signs seen but no vegetations seen Conclusions: - Continue antibiotics as per ID a primary team -Will need further evaluation for his mitral valve regurgitation as an outpatient. he was desaturating so we did not evaluate the mitral regurgitation in detail
--- NOTE | 2025-01-19 14:20 | P.PNIM_ITS ---
Progress Note: A&P Assessment and Plan (1) Bacteremia: Code(s): R78.81 - Bacteremia Status: Acute Plan (1) Bacteremia: Code(s): R78.81 - Bacteremia Status: Acute Assessment and Plan: patient was afebrile overnight, blood pressure stable, no O2 desaturation room air Blood culture grows Staphylococcus epidermidis on January 13, repeat blood culture January 15 has no grows bacteria changed to Ancef IV per ID pharmacist recommendation 01/16 TTE 1. There is no definite endocarditis in this study; however the pacemaker leads are not well visualized. 2. The left ventricle is mildly dilated with moderately reduced systolic function. The left ventricular ejection fraction is visually estimated 30-40%. 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 The inferior wall is mildly hypokinetic. 3. The mitral valve leaflets are normal. There is moderate mitral regurgitation that is posteriorly directed and likely functional in etiology patient has risk of endocarditis, consult manifold operator for evaluation treatment 01/19 DAYANA: 1. Normal LV systolic function 2. Moderate-severe mitral regurgitation, posteriorly directed 3. No vegetation seen in the mitral, aortic, tricuspid open the valves 4. Take and pacemaker lead seen, collagen signs seen but no vegetations seen - Will set pt up with PICC line with IV antibiotics, spoke with ID pharm, prefer Oxacillin or Nafcillin IV continuous infusion until January 28. (2) Calculus, ureteral: Code(s): N20.1 - Calculus of ureter Status: Acute Assessment and Plan: 7.3 mm obstructing left ureteral stone with concomitant UTI -Urology consulted and placed a stent. Per urology note: Plans for definitive stone intervention (ESWL versus ureteroscopy depending on if he can stop anticoagulation) in 1-2 weeks (3) Acute UTI: Code(s): N39.0 - Urinary tract infection, site not specified Status: Acute Assessment and Plan: Patient has complicated UTI Stent was placed Urine culture grew coag negative staph, which can sometimes colonize stones and suspect may be the same organism growing in blood cultures --Treating bacteremia as noted urine culture grows grow coagulase-negative Staph changed to Ancef IV (4) chronic systolic heart failure Cardiac defibrillator in place: Code(s): Z95.810 - Presence of automatic (implantable) cardiac defibrillator Status: Chronic Assessment and Plan: -chronic and stable Continue furosemide 40 mg daily p.o. (5) Type 2 diabetes mellitus: Qualifiers: Diabetes mellitus complication status: without complication Diabetes mellitus usp insulin use: with usp use Qualified Code(s): E11.9 - Type 2 diabetes mellitus without complications; Z79.4 - care home (current) use of insulin Code(s): E11.9 - Type 2 diabetes mellitus without complications Status: Chronic Assessment and Plan: -accuchecks, ssi (6) Atrial fibrillation: Qualifiers: Atrial fibrillation type: permanent Qualified Code(s): I48.21 - Permanent atrial fibrillation Code(s): I48.91 - Unspecified atrial fibrillation Status: Chronic Assessment and Plan: -Pacer/Defib in place -coumadin for anticoagulation, resume. --Will need to hold for urology, schedule based on ESWL --Monitor daily INR (7) Hypertension: Qualifiers: Hypertension type: essential hypertension Qualified Code(s): I10 - Essential (primary) hypertension Code(s): I10 - Essential (primary) hypertension Status: Chronic Assessment and Plan: -Blood pressure reviewed and stable/mildly elevated. -continue home coreg (8) Anxiety: Code(s): F41.9 - Anxiety disorder, unspecified Status: Chronic Assessment and Plan: -Continue home medications (9) Hyperlipidemia: Qualifiers: Hyperlipidemia type: unspecified Qualified Code(s): E78.5 - Hyperlipidemia, unspecified Code(s): E78.5 - Hyperlipidemia, unspecified Status: Chronic Assessment and Plan: -Chronic, continue simvastatin (10) History of DC (myocardial infarction): Code(s): I25.2 - Old myocardial infarction Status: Chronic Assessment and Plan: -Continue ASA Subjective Date/time seen: 01/19/25 14:20 Interval history: 01/19/2025 Patient sitting comfortably in bed at time of exam, vitals and bloodwork remains stable. Afebrile with no leukocytosis. Repeat blood cultures on 01/15 still shows no growth. DAYANA not indicative of endocarditis. Spoke with ID pharmacist regarding IV antibiotic options for bacteremia, will consider nafcillin verses oxacillin IV Q 24 hour infusion through January 28. Patient will need PICC line placement. Likely able to be discharged tomorrow. Review of Systems Review of Systems: Left abdominal pain All systems reviewed & are unremarkable except as noted in HPI and below Exam Narrative: GENERAL: middle aged pain mild distress in left flank ENT: Nares clear, no rhinorrhea or epistaxis. Mucous membranes moist. NECK: Supple. CHEST: Clear to auscultation. No respiratory distress. HEART: Regular rate and rhythm. No murmur heard. Normal peripheral pulses. ABDOMEN: Soft, nontender, nondistended, normal active bowel sounds. Left lower quadrant tenderness EXTREMITIES: Normal range of motion. No edema. SKIN: Warm, dry, no rash. NEURO: No focal deficits. Alert and oriented x3 Objective Data Vital Signs Vital Signs: Vital Signs - 24 hr 01/18/25 20:00 01/18/25 20:22 01/19/25 05:28 Temperature 97.2 F L 97.8 F Pulse Rate 94 86 Respiratory Rate 18 16 Blood Pressure 132/83 127/84 Pulse Oximetry 97 94 Oxygen Delivery Room Air 01/19/25 08:00 01/19/25 13:50 01/19/25 14:05 Temperature Pulse Rate 89 88 Respiratory Rate 14 15 Blood Pressure 134/93 H 146/98 H Pulse Oximetry 94 93 97 Oxygen Delivery Room Air Room Air Room Air 01/19/25 14:20 Temperature Pulse Rate 88 Respiratory Rate 14 Blood Pressure 151/97 H Pulse Oximetry 99 Oxygen Delivery Room Air Intake/Output Intake/Output: Intake & Output 01/16/25 01/17/25 01/18/25 01/19/25 23:59 23:59 23:59 23:59 Intake Total 3310.0 4390 3668 Output Total 350 300 Balance 2960.0 4390 3368 Meds/Results Medications: Active Medications Generic Name Dose Route Start Last Admin Trade Name Freq PRN Reason Stop Dose Admin Acetaminophen 1,000 mg 01/17/25 09:03 01/17/25 10:20 Acetaminophen 500 Mg Tablet PO 1,000 mg Q6H PRN Administration Mild Pain (1-3) or Fever Alprazolam 0.5 mg 01/14/25 04:35 Alprazolam (*Crx) 0.5 Mg Tablet PO BID PRN anxiety Aspirin 81 mg 01/15/25 09:00 01/19/25 09:45 Aspirin 81 Mg Enteric Tablet PO Not Given DAILY AB Carvedilol 6.25 mg 01/14/25 09:00 01/19/25 09:45 Carvedilol 6.25 Mg Tablet PO Not Given Q12HR AB Dextrose 12.5 gm 01/14/25 06:14 Dextrose 50% 25 Gm/50 Ml Syringe IV PUSH PRN PRN Hypoglycemia Protocol Furosemide 40 mg 01/15/25 09:00 01/19/25 09:45 Furosemide 40 Mg Tablet PO Not Given QAM AB Glucagon 1 mg 01/14/25 06:14 Glucagon For Inj 1 Mg Vial IM PRN PRN Hypoglycemia Protocol Glucose 15 gm 01/14/25 06:14 Glucose Oral Gel 15 Gm Of Glucse In 37.5 Gm Tube PO PRN PRN Hypoglycemia Protocol Hydrocortisone 1 applic 01/19/25 21:25 01/18/25 21:49 Hydrocortisone 1% 30 Gm Ointment TOPICAL 1 applic Q12HR BA Administration Hydromorphone HCl 0.5 mg 01/13/25 23:43 01/14/25 06:58 Hydromorphone Hcl Inj (*Crx) 2 Mg/Ml Vial IV PUSH 0.25 mg Q4H PRN Administration Pain Rated 7-10 Dextrose 1,000 mls @ 100 mls/hr 01/14/25 06:14 Dextrose 5% 1,000 Ml IVPB PRN PRN Hypoglycemia Protocol Cefazolin Sodium 2 gm in 50 mls @ 100 mls/hr 01/18/25 14:00 01/19/25 06:30 Ancef 2 Gm/D5w 50 Ml IVPB 100 mls/hr Q8HR AB Administration Insulin Aspart 4 - 8 units 01/14/25 08:00 01/19/25 12:48 Insulin Aspart (*Bkc) 100 Units/Ml SUB-Q Not Given TIDWM [facility] Protocol Insulin Aspart 20 units 01/15/25 17:00 01/19/25 08:21 Insulin Aspart Mix 70/30 100 Units/Ml SUB-Q Not Given BIDWM AB Lisinopril 10 mg 01/15/25 09:00 01/19/25 09:45 Lisinopril 10 Mg Tablet PO Not Given DAILY [facility] Morphine Sulfate 4 mg 01/13/25 23:43 01/15/25 00:06 Morphine Sulfate (*Crx) 4 Mg/Ml Inj IV PUSH 4 mg Q2H PRN Administration Pain Rated 7-10 Multivitamins Therapeutic 1 tablet 01/15/25 09:00 01/19/25 09:45 Multivitamins Therapeutic Tab (*Bkc) PO Not Given DAILY AB Ondansetron HCl 4 mg 01/13/25 23:43 01/18/25 18:29 Ondansetron Inj 4 Mg/2 Ml Vial IV PUSH 4 mg Q4H PRN Administration Nausea Polyethylene Glycol 17 gm 01/17/25 21:53 Polyethylene Glycol 3350 17 Gm Powd.Pack PO QAM PRN Constipation Senna 8.6 mg 01/17/25 21:50 01/17/25 22:12 Sennosides 8.6 Mg Tablet PO 8.6 mg HS PRN Administration Constipation Simvastatin 20 mg 01/15/25 09:00 01/19/25 09:45 Simvastatin 20 Mg Tablet PO Not Given DAILY [facility] Warfarin Sodium 7.5 mg 01/17/25 17:00 01/18/25 18:27 Warfarin (*Pbkc) 7.5 Mg Tablet PO 7.5 mg SuMoWeThSa AB Administration Warfarin Sodium 2.5 mg 01/19/25 17:00 Warfarin (*Pbkc) 2.5 Mg Tablet PO TuFr [facility] Warfarin Sodium 10 mg 01/19/25 17:00 Warfarin (*Pbkc) 10 Mg Tablet PO TuFr [facility] Radiology Results: ITS Impressions Abdomen/Pelvis CT 01/13/25 23:00 IMPRESSION: Moderate left-sided hydroureteronephrosis secondary to a 7.3 mm calculus in the proximal left ureter. Labs Labs: Laboratory Results - last 24 hr 01/18/25 01/18/25 01/19/25 16:51 19:45 06:01 WBC 6.7 RBC 4.28 L Hgb 12.7 L Hct 40.7 L MCV 95.1 MCH 29.7 MCHC 31.2 L RDW 14.9 H Plt Count 182 MPV 10.3 Immature Gran % (Auto) 0.5 Neut % (Auto) 60.0 Lymph % (Auto) 24.2 [place] % (Auto) 9.3 H Eos % (Auto) 5.1 H Baso % (Auto) 0.9 Lymph # (Auto) 1.61 [place] # (Auto) 0.6 Eos # (Auto) 0.3 Baso # (Auto) 0.1 Abs Immat Gran (auto) 0.03 Absolute Neuts (auto) 4.0 Absolute Nucleated RBC 0.000 Nucleated RBC % 0.0 PT 14.3 INR 1.1 Sodium 142 Potassium 3.3 L Chloride 111 H Carbon Dioxide 24 Anion Gap 7 BUN 10 Creatinine 0.82 Estim Creat Clear Calc 106 Estimated GFR > 60 Glucose 109 POC Capillary Glucose 88 161 H Calcium 8.4 Phosphorus 3.2 Magnesium 1.7 Total Bilirubin 0.5 AST 40 ALT 30 Alkaline Phosphatase 69 Total Protein 6.3 Albumin 3.6 01/19/25 01/19/25 07:51 11:28 WBC RBC Hgb Hct MCV MCH MCHC RDW Plt Count MPV Immature Gran % (Auto) Neut % (Auto) Lymph % (Auto) [place] % (Auto) Eos % (Auto) Baso % (Auto) Lymph # (Auto) [place] # (Auto) Eos # (Auto) Baso # (Auto) Abs Immat Gran (auto) Absolute Neuts (auto) Absolute Nucleated RBC Nucleated RBC % PT INR Sodium Potassium Chloride Carbon Dioxide Anion Gap BUN Creatinine Estim Creat Clear Calc Estimated GFR Glucose POC Capillary Glucose 132 H 104 Calcium Phosphorus Magnesium Total Bilirubin AST ALT Alkaline Phosphatase Total Protein Albumin Quality VTE Prophylaxis VTE prophylaxis: mechanical ordered
[2025-01-19] MEDS: WARFARIN (*PBKC) 2.5 MG TABLET PO (19:01)
[2025-01-19] MEDS: WARFARIN (*PBKC) 10 MG TABLET PO (19:01)
[2025-01-20 05:09] VITALS: BP 124/76; PULSE 82; RESP 18; TEMP 36.2; O2SAT 96
[2025-01-20] MEDS: ceFAZolin 2 GM/D5W 50 ML 2 GM/50 ML BAG IVPB (05:52)
[2025-01-20 06:45] LABS: Hematocrit 41.0 % (42.0-52.0); Hemoglobin 12.8 g/dL (14.0-18.0); Immature Granulocyte Percent A 0.7 % (0-0.5); Lymphocytes Absolute Auto 1.76 K/mm3 (0.9-3.2); Mean Corpuscular HGB Conc 31.2 g/dl (32-36); Mean Corpuscular Hemoglobin 29.3 pg (26-34); Mean Corpuscular Volume 93.8 fl (80-100); Nucleated Red Blood Cells Absolute Auto 0.000 K/mm3 (0.0-0.012); Nucleated Red Blood Cells Perc 0.0 % (0.0-0.2); Platelet Count Result 182 k/mm3 (150-375); Red Blood Count 4.37 M/mm3 (4.6-6.20); White Blood Count 7.1 K/mm3 (4.5-10.0)
[2025-01-20 06:56] LABS: INR 1.1; Prothrombin Time 14.0 Seconds (11.1-14.7)
[2025-01-20 07:25] LABS: Alanine Aminotransferase 26 U/L (6-50); Albumin Level 3.7 g/dL (3.5-5.1); Alkaline Phosphatase 78 U/L (38-126); Anion Gap 8 mmol/L (4-12); Aspartate Amino Transferase 31 U/L (17-59); Bilirubin,Total 0.4 mg/dL (0.2-1.3); Blood Urea Nitrogen 10 mg/dL (9-20); Calcium 8.8 mg/dL (8.4-10.2); Carbon Dioxide 26 mmol/L (22-30); Chloride 107 mmol/L (98-107); Estimated CRCL calculation 101 ml/min; Estimated Glomerular Filt Rate > 60; Glucose 113 mg/dL (65-110); Magnesium 1.8 mg/dL (1.6-2.3); Potassium 3.4 mmol/L (3.4-5.0); Sodium 141 mmol/L (137-145); Total Protein 6.4 g/dL (6.3-8.2)
--- NOTE | 2025-01-20 09:20 | PCNWS ---
Weekly nutritional screen. Patient is tolerating current diabetic diet with adequate intake 100% most all meals. No weight loss reported. Glucose controlled. No nutritional recommendations at this time.
[2025-01-20] MEDS: INSULIN ASPART MIX 70/30 100 UNITS/ML 20 UNITS SUB-Q (09:25)
[2025-01-20] MEDS: ACETAMINOPHEN 500 MG TABLET 1000 MG PO (09:26)
[2025-01-20] MEDS: ASPIRIN 81 MG ENTERIC TABLET PO (09:26)
[2025-01-20] MEDS: SIMVASTATIN 20 MG TABLET PO (09:26)
[2025-01-20] MEDS: MULTIVITAMINS THERAPEUTIC TAB (*BKC) 1 TABLET PO (09:26)
[2025-01-20] MEDS: HYDROCORTISONE 1% 30 GM OINTMENT 1 APPLIC TOPICAL (09:26)
[2025-01-20] MEDS: FUROSEMIDE 40 MG TABLET PO (09:26)
[2025-01-20] MEDS: LIDOCAINE 1% PF INJ 5 ML VIAL INFILTRATE (11:11)
[2025-01-20 14:00] VITALS: BP 127/75; PULSE 91; RESP 18; TEMP 35.8; O2SAT 95
--- NOTE | 2025-01-20 15:24 | PM.DS ---
DS: Admitting Diagnosis Discharge Date 01/20/2025 Admitting Diagnosis Bacteremia DS: Discharge Diagnosis Discharge Diagnosis (1) Bacteremia: Code(s): R78.81 - Bacteremia Status: Acute DS: Summary Hospital Course Reason for hospitalization: Obstructing ureteral stone on left with UTI Hospital Course: This is a 64-year-old male patient was admitted to the hospital for obstructing left ureteral stone with hydronephrosis and urinary of UTI. Patient has complaining urinary frequency for about a month. States he developed left flank pain radiating to the left lower quadrant abdomen with nausea. He also subjective fever. He has had prior kidney stones but has not previously required intervention. Workup in the emergency department revealed elevated white blood cell count 11.7 creatinine 1.33 with an estimated GFR 54, a lactic acid of 2.1. CT scan abdomen and pelvis showed obstructing proximal left ureteral stone 7.3 mm hydronephrosis. Urinalysis with multiple findings consistent UTI including positive nitrates 3+ leukocyte esterase greater wbc's and 4+ urine bacteria squamous cells. Urology was consulted by the ER and instructed to keep patient NPO after midnight for expected OR for ureteral stent placement. Patient reports LLQ and left flank pain is still very bad this morning. No nausea, no chest pain, no dyspnea, no new symptoms. He is hungry and thirsty, last oral intake was 2 pm on 01/13. Urology consulted regarding ureteral calculus, took patient for cystoscopy with left ureteral stent placement on 01/14. Definitive stone management with either ESWL or ureteroscopy as an outpatient once infection has been treated. Urology plans for the patient to follow up with their office in 1-2 weeks upon discharge. On 01/17, it was documented that the patient was found to bacteremia due to positive blood cultures taken on 01/13. Blood cultures grew Staph epi with 2nd bottle growing GPC in clusters. 01/15 blood cultures drawn again, showed no growth. TTE was taken on 01/16 which showed evidence of endocarditis. DAYANA showed normal LV systolic function, [id number] mitral regurgitation, vegetations seen mitral aortic, tricuspid valves. Recommended continuing antibiotics per primary team and for the evaluation MVR as an outpatient. Patient was set up PICC to continue IV antibiotics the next several days. Discussed with ID pharmacist, recommended first-line oxacillin or nafcillin with second-line being cefazolin, 3rd line being ceftriaxone and 4th line Bactrim. Given financial restrictions, will set up patient with ceftriaxone 2 g Q 24 hours until January 28. Otherwise pt is stable for discharge at this time. He has appropriate follow up information with Urology for possible ESWL versus ureteroscopy in 1-2 weeks). Vitals and bloodwork have remained stable or unremarkable, patient is amenable for discharge home at this time. Patient has been set up with a PICC line and instructed on how to administer antibiotics at home. Plan for discharge home with home health. Status at Discharge Functional status at discharge: independent ambulation Overall status at discharge: patient is back to baseline Time Spent with Patient Time attestation: Total time spent providing and/or coordinating discharge services: 52 Exam Narrative: GENERAL: middle aged man, no acute distress ENT: Nares clear, no rhinorrhea or epistaxis. Mucous membranes moist. NECK: Supple. CHEST: Clear to auscultation. No respiratory distress. HEART: Regular rate and rhythm. No murmur heard. Normal peripheral pulses. ABDOMEN: Soft, nontender, nondistended, normal active bowel sounds. Left lower quadrant tenderness, improved EXTREMITIES: Normal range of motion. No edema. SKIN: Warm, dry, no rash. NEURO: No focal deficits. Alert and oriented x3 DS: Data Data Completed and Pending Labs on day of discharge: Labs from last 24 hours 01/20/25 01/20/25 01/20/25 12:17 07:55 06:32 WBC 7.1 RBC 4.37 L Hgb 12.8 L Hct 41.0 L MCV 93.8 MCH 29.3 MCHC 31.2 L RDW 14.9 H Plt Count 182 MPV 10.2 Immature Gran % (Auto) 0.7 H Neut % (Auto) 59.8 Lymph % (Auto) 24.8 [place] % (Auto) 8.9 H Eos % (Auto) 5.1 H Baso % (Auto) 0.7 Lymph # (Auto) 1.76 [place] # (Auto) 0.6 Eos # (Auto) 0.4 H Baso # (Auto) 0.1 Abs Immat Gran (auto) 0.05 H Absolute Neuts (auto) 4.3 Absolute Nucleated RBC 0.000 Nucleated RBC % 0.0 PT 14.0 INR 1.1 Sodium 141 Potassium 3.4 Chloride 107 Carbon Dioxide 26 Anion Gap 8 BUN 10 Creatinine 0.86 Estim Creat Clear Calc 101 Estimated GFR > 60 Glucose 113 H POC Capillary Glucose 101 107 H Calcium 8.8 Phosphorus 2.8 Magnesium 1.8 Total Bilirubin 0.4 AST 31 ALT 26 Alkaline Phosphatase 78 Total Protein 6.4 Albumin 3.7 01/19/25 01/19/25 20:01 16:21 WBC RBC Hgb Hct MCV MCH MCHC RDW Plt Count MPV Immature Gran % (Auto) Neut % (Auto) Lymph % (Auto) [place] % (Auto) Eos % (Auto) Baso % (Auto) Lymph # (Auto) [place] # (Auto) Eos # (Auto) Baso # (Auto) Abs Immat Gran (auto) Absolute Neuts (auto) Absolute Nucleated RBC Nucleated RBC % PT INR Sodium Potassium Chloride Carbon Dioxide Anion Gap BUN Creatinine Estim Creat Clear Calc Estimated GFR Glucose POC Capillary Glucose 208 H 115 H Calcium Phosphorus Magnesium Total Bilirubin AST ALT Alkaline Phosphatase Total Protein Albumin Preliminary micro results at discharge 01/15/25 16:14 Blood Culture - Preliminary Blood 01/15/25 16:25 Blood Culture - Preliminary Blood Discharge Plan Discharge Attending physician on discharge: Fausto Rachel Consulting providers: Sweta Samuel; Gil Camara; Grabiel Odonnell; Liz Doyle Discharging Clinician: Gil Camara Anticipated Discharge Date/Time: 01/20/25 15:17 Patient Disposition: Home with Home Health Service Activity: as tolerated Diet: as tolerated Discharge Instructions: Per Care Coordination Patient has been arranged to have [facility] for nursing visits to manage IV Rocephin through January 28. [phone] RN please fax completed discharge instructions to [phone] [facility] will be supplying you with antibiotics and will deliver to your house. Discharge disposition: Stable Take medications as prescribed. You are to be given Ceftriaxone to be taken through IV once daily until January 28. Monitor blood pressures Take caution while standing, rising, or moving Change positions slowly taking a break between each position change If you standing feel dizzy sit back down and take a break Encouraged to continue with yearly vaccinations Return to the emergency department if he developed sudden shortness of breath, chest pain, nausea, vomiting, upset stomach or intractable diarrhea Return to the emergency department if you develop fever greater than 101.5 Follow-up with the primary care physician within 1-2 weeks Follow up with Urology in 1-2 weeks. Thank you for choosing [facility] for your healthcare needs Patient Instructions: Antibiotic Form Patient Language: [place] Stand Alone Forms: General Discharge Information Follow-up/Referrals: Robert Jo APRN [Primary Care Provider] - Grabiel Odonnell MD [Physician] - Call for Appointment (Left ureteral stone treatment and stent management) Discharge Medications: New ceftriaxone 2 gram recon soln 2 g IV DAILY Qty: 8 0RF Continued aspirin 81 mg tablet,delayed release (DR/EC) 81 mg PO DAILY carvedilol 6.25 mg tablet 6.25 mg PO Q12H Rx Instructions: must administer with a meal/food mecobalamin (vitamin B12) 1,000 mcg tablet,chewable 1,000 mcg PO DAILY furosemide 40 mg tablet 40 mg PO QAM lisinopril 10 mg tablet 10 mg PO DAILY multivitamin Tablet 1 tablet PO DAILY warfarin 7.5 mg tablet 7.5 mg PO .COMPLEX Rx Instructions: 7.5 mg orally Daily except Saturday and Saturday; warfarin 10 mg tablet 10 mg PO .COMPLEX Rx Instructions: 10 mg orally take with 2.5mg tab Saturday and Saturday for total of 12.5mg; warfarin 2.5 mg tablet 2.5 mg PO .COMPLEX Rx Instructions: 2.5 mg orally take with 10mg tablet Saturday and Saturday for 12.5mg total; ascorbate calcium (vitamin C) 500 mg tablet 500 mg PO DAILY insulin asp prt-insulin aspart [Novolog Mix 70-30FlexPen U-100] 100 unit/mL (70-30) insulin pen 20 unit subcut BID Rx Instructions: inject 20 units twice daily with breakfast and dinner Jardiance 25 mg tablet 25 mg PO DAILY Qty: 90 0RF tadalafil [Cialis] 20 mg tablet 20 mg PO DAILY PRN (Reason: sexual activity) Qty: 8 3RF Rx Instructions: administer approximately 30min before sexual activity; do not use more than 1 dose per 24hrs simvastatin 20 mg tablet 20 mg PO DAILY Ozempic 2 mg/dose (8 mg/3 mL) pen injector 2 mg subcut WEEKLY Qty: 9 3RF metformin 500 mg tablet extended release 24 hr See Rx Instructions .ROUTE .COMPLEX Qty: 360 4RF Dose Instruction: TAKE 2 TABLETS BY MOUTH TWICE A DAY Rx Instructions: TAKE 2 TABLETS BY MOUTH TWICE A DAY alprazolam 0.5 mg tablet 0.5 mg PO BID PRN (Reason: anxiety) Qty: 180 0RF cholecalciferol (vitamin D3) 125 mcg (5,000 unit) capsule 125 mcg PO DAILY Qty: 90 1RF Discontinued omega-3 fatty acids [Fish Oil Concentrate] 1,000 mg capsule 1,000 mg PO DAILY (DME) blood-glucose meter [OneTouch Verio IQ Meter] Kit See Rx Instructions .Route Qty: 1 0RF Rx Instructions: use to check blood sugars BID (DME) lancets [OneTouch UltraSoft Lancets] Misc See Rx Instructions .Route Qty: 200 2RF Rx Instructions: Use to check blood sugars 2-3 times daily (DME) pen needle, diabetic [BD Ultra-Fine Kathleen Pen Needle] 32 gauge x 5/32 needle See Rx Instructions .Route Qty: 100 6RF Rx Instructions: As directed, 2 shots a day (DME) OneTouch Verio test strips Strip See Rx Instructions .Route Qty: 100 3RF Rx Instructions: As directed; Check Blood glucose 2-3 times daily Date of admission: 01/15/25 11:07 Primary Care Provider: Robert Jo Admitting Provider: Shayna Castellano Attending physician on admission: Shayna Castellano Condition: Stable Quality VTE Prophylaxis VTE prophylaxis: mechanical ordered
[2025-01-20] MEDS: cefTRIAXone 2 GM/NS 100 ML 2 GM/100 ML BAG IVPB (15:35)
== END 2025-01-20 17:15 | disposition home health service (06) | DRG 854 ==
LOC: ANHED 23:29 → ANH3MEDSUR 01-14 00:36
PROVIDERS: Emergency Medicine; Family Medicine; Internal Medicine Interventional Cardiology; Nurse Practitioner; Nurse Practitioner Acute Care; Urology; Admitting Provider Internal Medicine; Emergency Provider Physician Assistant; PCP Nurse Practitioner; Visit Provider Physician Assistant
PROC: 0T778DZ Dilation of Left Ureter with Intraluminal Device, Via Natural or Artificial Opening Endoscopic (ICD-10-PCS; CPT 52352; principal; 2025-01-14 13:45)
PROC: B246ZZ4 Ultrasonography of Right and Left Heart, Transesophageal (ICD-10-PCS; CPT 93312; principal; 2025-01-19 14:00)
DX: A41.9 Sepsis, unspecified organism (principal); I48.21 Permanent atrial fibrillation; N20.1 Calculus of ureter; N13.6 Pyonephrosis; I50.22 Chronic systolic (congestive) heart failure; I11.0 Hypertensive heart disease with heart failure; N28.9 Disorder of kidney and ureter, unspecified; R65.20 Severe sepsis without septic shock; I25.10 Atherosclerotic heart disease of native coronary artery without angina pectoris; I34.0 Nonrheumatic mitral (valve) insufficiency; F41.9 Anxiety disorder, unspecified; E78.5 Hyperlipidemia, unspecified; E11.9 Type 2 diabetes mellitus without complications; I25.2 Old myocardial infarction; E66.9 Obesity, unspecified; Z68.34 Body mass index [BMI] 34.0-34.9, adult; Z86.16 Personal history of COVID-19; Z87.891 Personal history of nicotine dependence; Z79.01 Long term (current) use of anticoagulants; Z79.82 Long term (current) use of aspirin; Z79.84 Long term (current) use of oral hypoglycemic drugs; Z79.85 Long-term (current) use of injectable non-insulin antidiabetic drugs; Z95.5 Presence of coronary angioplasty implant and graft; Z95.810 Presence of automatic (implantable) cardiac defibrillator
CPT/HCPCS: 36415; 36569; 71045; 74176; 74420; 80053; 80069; 80202; 81001; 82948; 83036; 83605; 83690; 83735; 84100; 84145; 85025; 85610; 85652; 86140; 87040; 87086; 87181; 93005; 93312; 93320; 93325; 96361; 96365; 96375; 96376; 99285; A9270; C1751; C1758; C1769; C2617; C8929; G0378; J0690; J0696; J1171; J1815; J2003; J2270; J2405; J2704; J3010; J3370; J7030; J7040; J7120; Q9957; Q9966

== ENCOUNTER 2025-01-29 14:31 | Outpatient (CLI) | payer MEDICARE, SELFPAY ==
--- OUTSIDE RECORDS SUMMARY | 2025-01-29 14:34 | XMS_ITS | Encounter Summary ---
Author Organization [facility] Address [address] [address] Care Team Providers Care Ceramic Worker Name Role Phone Clint Morales MD Primary Care Provider [phone] Audie Wilkerson Primary Care Provider Robert Jo NP Primary Care Provider [phone] Encounter Details Date Type Department Care Team (Late st Contact Info) Description 10/30/2016 Orders Only [facility] ProviderPatricia MD [address] [place] [address] Social History Tobacco Use Types Packs/Day Years Used Date Smoking Tobacco: Former Cigarettes Q uit: 07/22/2004 Alcohol Use Standard Drinks/Week Comments Yes 0 (1 standard drink = 0.6 oz pur e alcohol) Sex and Gender Information Value Date Recorded Sex Assigned at Not on file Legal Sex Male 2:13 AM PROTECTIVE SERVICES OFFICER Gender Identity Not on file Sexual Orientation Not on file documented as of this encounter Plan of Treatment Not on file documented as of this encounter Procedures Procedure Name Priority Date/Time Associated Diagnosis Comments CARDIOLOGY REPORT 10/30/2016 documented in this encounter Results * CARDIOLOGY REPORT (10/30/2016) Anatomical Region Laterality Modality Other Narrative 10/30/2016 Ordered by an unspecified provider. Historical Provider [facility] JAMSHID BLUM Final Result documented in this encounter Visit Diagnoses Not on filedocumented in this encounter Care Teams Ceramic Worker Relationship Specialty Start Date End Date Clint Morales MD [address] [place] [address] PCP - General 10/19/16 09/05/20 Audie Wilkerson PA [address] [place], [place] [id number] PCP - General Physician Page Makeup System Operator 09/06/20 06/14/24 Robert Jo NP [address] [place] [address] PCP - General Nurse Practitioner 06/15/24 documented as of this encounter
--- OUTSIDE RECORDS SUMMARY | 2025-01-29 14:34 | XMS_ITS | Referral Summary ---
Author Organization [place] [address] [address] [place] [address] Care Team Providers Care Junior Loan Processor Name Role Phone Robert Jo NP Primary Care Provider [phone] Encounters Date Type Department Care Team Description 12/28/2024 Anticoagulation Visit [facility] Cardiology [address] [place] [phone] Leeanne Dial RN Atrial fibrillation ([facility]/HCC) [I48.91] (Primary Dx); Chronic atrial fibrillation (HCC); Chronic anticoagulation 12/15/2024 8:30 AM CDT Office Visit [address] [phone] Gregor Whitehead MD Ischemic cardiomyopathy (Primary Dx); Other thrombophilia (HCC); Atrial fibrillation, unspecified type (HCC) 11/20/2024 Anticoagulation Visit [facility] Cardiology [address] [place] [phone] Martin Cardona RN Atrial fibrillation ([facility]/HCC) [I48.91] (Primary Dx); Chronic atrial fibrillation (HCC); Chronic anticoagulation from Last 3 Months Allergies No known active allergies Medications ascorbic acid, vitamin C, (VITAMIN C) 500 mg CR tablet take 1 by Oral route every day 0 08/01/2011 Active multivitamin tablet tablet take 1 tablet by oral route every day with food 0 0 03/04/2013 Active omega-3 fatty acids-fish oil 340-1,000 mg capsule take 1 by Oral route once 0 0 09/09/2013 Active ALPRAZolam (XANAX) 0.5 mg tablet take 1 Tablet by oral route every day as needed 0 09/09/2013 Active cyanocobalamin (Vitamin B-12) 1,000 mcg tablet take 1 by Oral route every day 0 0 10/29/2016 Active metFORMIN XR (GLUCOPHAGE XR) 500 mg 24 hr tablet 04/27/2021 Active HumaLOG 75/25 100 unit/mL 100 unit/mL pen for injection 04/27/2021 Active semaglutide (Ozempic) 0.25 mg or 0.5 mg(2 mg/1.5 mL) pen injector injection Inject under the skin once a week Active aspirin (Shasha Low Dose Aspirin) 81 mg enteric coated tablet Take 1 tablet (81 mg total) by mouth daily 90 tablet 3 12/15/2024 Active carvediloL (COREG) 12.5 mg tablet Take 1 tablet (12.5 mg total) by mouth 2 (two) times a day with meals 180 tablet 3 12/15/2024 Active empagliflozin (JARDIANCE) 10 mg tablet Take 1 tablet (10 mg total) by mouth daily 90 tablet 3 12/15/2024 Active furosemide (LASIX) 40 mg tablet Take 1 tablet (40 mg total) by mouth daily 90 tablet 3 12/15/2024 Active lisinopriL (PRINIVIL,ZESTR IL) 10 mg tablet Take 1 tablet (10 mg total) by mouth daily 90 tablet 3 12/15/2024 Active simvastatin (ZOCOR) 20 mg tablet Take 1 tablet (20 mg total) by mouth nightly 90 tablet 3 12/15/2024 Active warfarin (COUMADIN) 7.5 mg tablet TAKE 1 TABLET BY MOUTH EVERY DAY 90 tablet 12/25/2024 Active warfarin (COUMADIN) 5 mg tablet TAKE 1 AND 1/2 TABLETS BY MOUTH DAILY 135 tablet 12/25/2024 Active Active Problems Problem Noted Date Diagnosed Date Other thrombophilia 12/15/2024 Paroxysmal atrial flutter 06/10/2023 Tachycardia 09/06/2020 H/O cardiomyopathy 12/23/2017 Atrial fibrillation (CMS/HCC) [I48.91] 7 Chronic anticoagulation 01/28/2017 Hypotension 04/23/2016 Overview (10/24/2016): Hypotension, unspecified hypotension type Biventricular ICD (implantab le cardioverter-defibrillator) in place 04/23/2016 Overview (02/22/2017): [employer] BIV ICD, Dx; ICM, CHF, Vt, Afib. DOI 10/05/2010, Chronic leads 10/2005. Device followed by Dr Cee @ [facility] Paroxysmal atrial fibrillation 04/23/2016 Overview (10/25/2016): Paroxysmal atrial fibrillation Mononeuropathy associated with type II diabetes mellitus 09/19/2015 Overview (10/25/2016): Type 2 diabetes mellitus with diabetic neuropathy Mixed diabetic hyperlipidemi a associated with type 2 diabetes mellitus 09/19/2015 Overview (10/25/2016): Dyslipidemia Coronary artery disease invo lving [place] coronary artery of [place] heart without angina pectoris 09/19/2015 Overview (10/25/2016): Coronary artery disease involving [place] coronary artery of [place] heart without angina pectoris Hypertension associated with diabetes 09/19/2015 Overview (10/25/2016): HTN (hypertension), benign Chronic atrial fibrillation 09/19/2015 Overview (10/25/2016): Chronic atrial fibrillation FPC current use of anticoagulant therapy 0 09/19/2015 Overview (10/25/2016): Chronic anticoagulation Cardiomyopathy 09/19/2015 Overview (10/25/2016): Cardiomyopathy Morbid obesity 09/19/2015 Overview (10/25/2016): Morbid obesity with BMI of 40.0-44.9, adult Diabetic neuropathy 03/21/2015 Overview (10/25/2016): Polyneuropathy in diabetes Resolved Problems Problem Noted Date Diagnosed Date Resolved Date Dyslipidemia associated with type 2 diabetes mellitus (CMS/HCC) 04/23/2016 05/17/2021 Overview (10/24/2016): DM type 2 with diabetic dyslipidemia Automatic implantable cardioverter-defibrillator in situ 09/19/201511/07 Overview (10/25/2016): ICD (implantable cardioverter-defibrillator) in place Social History Tobacco Use Types Packs/Day Years Used Date Smoking Tobacco: Former Smokeless Tobacco: Never Tobacco Cessation:Counseling Given: Not Answered Alcohol Use Standard Drinks/Week Comments Yes 0 (1 standard drink = 0.6 oz pur e alcohol) Sex and Gender Information Value Date Recorded Sex Assigned at Not on file Legal Sex Male 2:13 AM ENAMELER Gender Identity Not on file Sexual Orientation Not on file Last Filed Vital Signs Vital Sign Reading Time Taken Comments Blood Pressure 112/68 12/15/2024 8:08 AM CDT Pulse 98 12/15/2024 8:08 AM CDT Temperature - - Respiratory Rate 16 12/15/2024 8:08 AM CDT Oxygen Saturation 97% 12/15/2024 8:08 AM CDT Inhaled Oxygen Concentration - - Weight 115.7 kg (255 lb) 12/15/2024 8:08 AM CDT Height 188 cm (6' 2) 12/15/2024 8:08 AM CDT Body Mass Index 32.74 12/15/2024 8:08 AM CDT Plan of Treatment Not on file Procedures Procedure Name Priority Date/Time Associated Diagnosis Comments PROTIME-INR Routine 12/25/2024 6:04 AM CDT Chronic atrial fibrillation (HCC) Chronic anticoagulation ELECTROCARDIOGRAM REPORT Routine 12/15/2024 Ischemic cardiomyopathy Atrial fibrillation, unspecified type (HCC) PROTIME-INR Routine 11/20/2024 6:15 AM CDT Chronic atrial fibrillation (HCC) Chronic anticoagulation POCT LIPID PANEL Routine 06/15/2024 8:41 AM ENAMELER Lipid screening from Last 3 Months or Most Recently Relevant to Health Maintenance Results * (ABNORMAL) Protime-INR (12/25/2024 6:04 AM CDT) INR 2.2(H) [facility] Comment: Reference Range 0.9-1.1 Moderate-intensity Warfarin Therapy 2.0-3.0 Higher-intensity Warfarin Therapy 3.0-4.0 PT 22.4(H) 9.0 - 11.5 sec [facility] Comment: For additional information, please refer to [email or web address]/[email or web address] (This link is being provided for informational/ educational purposes only.) Blood 12/25/2024 6:04 AM CDT 12/25/2024 6:04 AM CDT Elodia Elias NP LAB BLOOD ORDERABLES Shaista l [facility] [address] [place] [address] * Electrocardiogram Report (12/15/2024) 12/15/2024 us Gregor Whitehead MD ECG ORDERABLES Final Result * (ABNORMAL) Protime-INR (11/20/2024 6:15 AM CDT) INR 2.0(H) [facility] Comment: Reference Range 0.9-1.1 Moderate-intensity Warfarin Therapy 2.0-3.0 Higher-intensity Warfarin Therapy 3.0-4.0 PT 20.9(H) 9.0 - 11.5 sec [facility] Comment: For additional information, please refer to [email or web address]/[email or web address] (This link is being provided for informational/ educational purposes only.) Blood 11/20/2024 6:15 AM CDT 11/20/2024 6:15 AM CDT Narrative [facility] - 11/20/2024 3:26 PM CDT FASTING:NO FASTING: NO Elodia Elias NP LAB BLOOD ORDERABLES Shaista l Result SAE [facility] [address] [place] [address] * POCT lipid panel (06/15/2024 8:41 AM ENAMELER) Cholesterol, POC 152 mg/dL HDL, POC 36 mg/dL Triglycerides, POC 361 mg/dL LDL Cholesterol POC 44 mg/dL Chol/HDL Ratio, POC 1.2 Non-HDL Cholesterol, POC 116 mg/dL Cholesterol Total, POC 152 mg/dL Capillary blood 06/15/2024 8 :41 AM ENAMELER Elodia Elias NP POINT OF CARE TEST ORDERA BLES Final Result from Last 3 Months or Most Recently Relevant to Health Maintenance Insurance [facility] AETNA MEDICARE GOLD Care Teams Junior Loan Processor Relationship Specialty Start Date End Date Robert Jo NP [address] [facility] [address] [place] [address] PCP - General Nurse Practitioner 06/15/24
--- OUTSIDE RECORDS SUMMARY | 2025-01-29 14:34 | XMS_ITS | Encounter Summary ---
Author Organization [facility] Address 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 Gender Identity Not on file Sexual Orientation Not on file documented as of this encounter Plan of Treatment Upcoming Encounters Date Type Department Care Team (Late st Contact Info) Description 02/16/2025 8:00 AM CDT Procedure visit [facility] Heart and Vascular - [address] [facility] [address] [place] [address] documented as of this encounter Procedures Procedure Name Priority Date/Time Associated Diagnosis Comments CBC WITH DIFFERENTIAL Routine 01/24/2006 6:10 AM CDT CBC WITH DIFFERENTIAL Routine 01/24/2006 6:10 AM CDT BASIC METABOLIC PANEL Routine 01/24/2006 6:10 AM CDT documented in this encounter Results * CBC WITH DIFFERENTIAL (01/24/2006 6:10 AM CDT) NEUTROPHILS 56 45 - 70 % INTERFAC E SYSTEM LYMPHOCYTES 31 16 - 45 % INTERFAC E SYSTEM MONOCYTES 8 3 - 13 % INTERFACE SYSTEM EOSINOPHILS 4 0 - 7 % INTERFAC E SYSTEM BASOPHILS 1 0 - 2 % INTERFACE SYSTEM NEUTROPHIL ABSOLUTE 4.96 1.90 - 7.00 K/uL INTERFACE SYSTEM LYMPHOCYTE ABSOLUTE 2.71 0.70 - 4.50 K/uL INTERFACE SYSTEM MONOCYTE ABSOLUTE 0.71 0.10 - 1.30 K/uL INTERFACE SYSTEM EOSINOPHIL ABSOLUTE 0.37 0.00 - 0.70 K/uL INTERFACE SYSTEM BASOPHILS ABSOLUTE 0.07 0.00 - 0.20 K/uL INTERFACE SYSTEM 01/24/2006 6:10 AM CDT Luis Manuel Cee HEMATOLOGY ORDERABLES Final Resu lt Performing Organization Address City/[facility] [[email or web address]] de Phone Number INTERFACE SYSTEM Refer to clinic/hospital department * CBC WITH DIFFERENTIAL (01/24/2006 6:10 AM CDT) WBC 8.8 4.0 - 9.8 K/uL INTERFACE SYSTEM RBC 4.95 4.50 - 5.40 M/uL INTERFACE SYSTEM HEMOGLOBIN 15.7 13.6 - 16.5 g/dL INTERFACE SYSTEM HEMATOCRIT 45.4 40.0 - 48.0 % INTERFACE SYSTEM MCV 91.7 82.0 - 99.0 fL INTERFACE SYSTEM MCH 31.7 27.2 - 32.6 pg INTERFACE SYSTEM MCHC 34.6 31.5 - 35.5 % INTERFACE SYSTEM RDW 13.6 11.5 - 14.5 % INTERFACE SYSTEM RDW-STDEV 45.8 37.1 - 48.7 fL INTERFACE SYSTEM PLATELETS 184 140 - 350 K/uL INTERFACE SYSTEM MPV 10.3 9.3 - 12.4 fL INTERFACE SYSTEM 01/24/2006 6:10 AM CDT Luis Manuel Cee HEMATOLOGY ORDERABLES Final Resu Performing Organization Address [facility] [[email or web address]] de Phone Number INTERFACE SYSTEM Refer to clinic/hospital department * (ABNORMAL) BASIC METABOLIC PANEL (01/24/2006 6:10 AM CDT) GLUCOSE 98 65 - 99 mg/dL INTERFACE SYSTEM Comment:Note: Effective December 04, 2005, reference range now reflects a fasting st ate. CREATININE 1.2 0.5 - 1.3 mg/dL INTERFACE SYSTEM CALCIUM 9.5 8.6 - 10.2 mg/dL INTERFACE SYSTEM BUN 26(H) 6 - 20 mg/dL INTERFACE SYSTEM SODIUM 140 135 - 145 mmol/L INTERFACE SYSTEM POTASSIUM 4.8 3.5 - 4.9 mmol/L INTERFACE SYSTEM CHLORIDE 103 96 - 108 mmol/L INTERFACE SYSTEM CO2 27 22 - 30 mmol/L INTERFACE SYSTEM 01/24/2006 6:10 AM CDT Luis Manuel Cee CHEMISTRY ORDERABLES Final Resul t INTERFACE SYSTEM Refer to clinic/hospital department documented in this encounter Visit Diagnoses Diagnosis Fitting and adjustment of automatic implantable cardiac defibrillator- Primary documented in this encounter Care Teams Cdl A Driver Relationship Specialty Start Date End Date Juan Romero DO [address] [facility] [address] [place] [phone] PCP - General Internal Medicine 06/16/24 documented as of this encounter
--- OUTSIDE RECORDS SUMMARY | 2025-01-29 14:34 | XMS_ITS | Clinical Summary ---
Author Organization [facility] [address] [place] [address] Address [address] [place] [address] Care Team Providers Care Tower Observer Name Role Phone Juan Romero Primary Care Provider [phone] Medications cyanocobalamin 1,000 mcg Tablet Take 1,000 mcg by mouth daily. 6 Active [place]-3 Fatty Acids 1,000 mg Capsule daily. 6 Active lisinopriL (PRINIVIL) 10 mg tablet Take 1 Tablet by mouth. 6 Active Multivitamin Capsule take 1 capsule by oral route every day 6 Active ascorbic acid, vitamin C, (VITAMIN C) 1,000 mg Tablet Take 1,000 mg by mouth daily. 6 Active warfarin (COUMADIN) 10 mg tablet 7.5/12.5 or as directed 6 Active aspirin (ECOTRIN EC) 81 mg Tablet, Delayed Release (E.C.) Take 81 mg by mouth daily. Active furosemide (LASIX) 40 mg tablet Take 40 mg by mouth daily. Active ALPRAZolam (XANAX) 0.5 mg tablet Take 0.5 mg by mouth nightly as needed for Anxiety. Active simvastatin (ZOCOR) 10 mg tablet Take 20 mg by mouth late in the day. Active insulin lispro protamine-lispr o (HumaLOG MIX 75-25) 100 unit/mL (75-25) pen syringe 1 Active metFORMIN (GLUCOPHAGE XR) 500 mg Extended Release 24 hour tablet Take 1,000 mg by mouth 2 times daily with meals. 1 Active Jardiance 10 mg tablet Take 25 mg by mouth daily. 2 Active semaglutide (Ozempic) 0.25 mg or 0.5 mg(2 mg/1.5 mL) Pen Injector Inject by subcutaneous injection every 7 days. Active carvediloL (COREG) 12.5 mg tablet Take 12.5 mg by mouth 2 times daily. 3 Active Active Problems Problem Noted Date Diagnosed Date VT (ventricular tachycardia) 06/17/2018 Chronic systolic heart failure 06/17/2018 NICM (nonischemic cardiomyopathy) 06/17/2018 Biventricular ICD (implantab le cardioverter-defibrillator) in place 06/17/2018 Encounters Date Type Department Care Team Description 01/06/2025 External Device Data STL ABSTRACTION Provider, Abstract 01/05/2025 External Device Data STL ABSTRACTION Provider, Abstract 12/09/2024 External Device Data STL ABSTRACTION Provider, Abstract 12/08/2024 External Device Data STL ABSTRACTION Provider, Abstract 12/01/2024 External Device Data STL ABSTRACTION Provider, Abstract 11/24/2024 External Device Data STL ABSTRACTION Provider, Abstract from Last 3 Months Social History Tobacco Use Types Packs/Day Years Used Date Smoking Tobacco: Former Sex and Gender Information Value Date Recorded Sex Assigned at Not on file Legal Sex Male 3:48 AM BUSINESS RISK CONSULTANT Gender Identity Not on file Sexual Orientation Not on file Last Filed Vital Signs Vital Sign Reading Time Taken Comments Blood Pressure 110/80 10/15/2024 7:54 AM CDT ra Pulse 87 03/09/2022 1:00 PM CDT Temperature 36 C (96.8 F) 03/09/2022 11:57 AM CDT Respiratory Rate 19 03/09/2022 1:00 PM CDT Oxygen Saturation 97% 03/09/2022 1:00 PM CDT Inhaled Oxygen Concentration - - Weight 120.2 kg (265 lb) 10/15/2024 7:54 AM CDT Height 185.4 cm (6' 1) 10/15/2024 7:54 AM CDT Body Mass Index 34.96 10/15/2024 7:54 AM CDT Plan of Treatment Upcoming Encounters Date Type Department Care Team (Late st Contact Info) Description 02/16/2025 8:00 AM CDT Procedure visit [facility] Heart and Vascular - [address] [facility] [address] [address] [place] [address] Health Maintenance Due Date Last Done Comments DIABETES ANNUAL FOOT EXAM 1977 DIABETES ANNUAL RETINAL EXAM 1977 DIABETES HBA1C Q 6 MONTHS 1977 DIABETES MICROALBUMIN ANNUAL SCREEN 1977 LDL CHOLESTEROL ANNUAL 1977 DTAP/TDAP/TD VACCINES (1 - Tdap) 1978 PNEUMOCOCCAL VACCINE 50+ YEARS (1 of 2 - PCV) 07/13/19 78 COLORECTAL SCREENING 2004 Colorectal Cancer Screening 2004 FIT-DNA Q 3 years 2004 FIT/FOBT Q 1 year 2004 Flex Sig/CT Colonography Q 5 years 2004 ZOSTER VACCINE (1 of 2) 2009 RSV VACCINE (60+ or ) (1 - Risk 60-74 years 1-dose series) 2019 Abdominal Aortic Aneurysm (AAA) Screening 2024 INFLUENZA VACCINE (#1) 2025 Medical Devices Implanted Type Area Delivery Route Driver Device Identifier Shelf Expiration Date Model / Serial / Lot Defib Icd Momentum Df1 Is1 Director Of Billing-D G125 - [id number] Implanted:Qty : 1 on 03/09/2022 at [facility] Defibrillator Left: Chest Mercora NELLY 08/10/2023 G125 / [id number] / Insurance [facility] M[facility] Address: [facility] [id number] [place] [address] Care Teams Tower Observer Relationship Specialty Start Date End Date Juan Romero DO [address] [facility] [address] [facility] [address] [place] [phone] PCP - General Internal Medicine 06/16/24
--- OUTSIDE RECORDS SUMMARY | 2025-01-29 14:34 | XMS_ITS | Clinical Summary ---
Author Organization [facility] [place] [address] [facility] 162 Address [address] [facility] 162 [place] [address] Care Team Providers Care Implementation Services Analyst Name Role Phone Robert Jo NP Primary Care Provider [phone] Allergies No known active allergies Medications ascorbic [...] by mouth daily 90 tablet 3 12/15/2024 6 Active furosemide (LASIX) 40 mg tablet Take 1 tablet (40 mg total) by mouth daily 90 tablet 3 12/15/2024 6 Active lisinopriL (PRINIVIL,ZESTR IL) 10 mg tablet Take 1 tablet (10 mg total) by mouth daily 90 tablet 3 12/15/2024 6 Active simvastatin (ZOCOR) 20 mg tablet Take [...] Tachycardia 09/06/2020 H/O cardiomyopathy 12/23/2017 Atrial fibrillation (CMS/[facility]) [I48.91] 7 Chronic anticoagulation 01/28/2017 Hypotension 04/23/2016 Overview (10/24/2016): Hypotension, unspecified hypotension type Biventricular ICD (implantab le cardioverter-defibrillator) in place 04/23/2016 Overview (02/22/2017): [employer] BIV ICD, Dx; ICM, CHF, Vt, Afib. DOI 10/05/2010, Chronic leads 10/2005. Device followed by Dr Cee @ [facility] Paroxysmal atrial fibrillation 04/23/2016 Overview (10/25/2016): Paroxysmal atrial fibrillation Mononeuropathy associated with type II diabetes mellitus 09/19/2015 Overview (10/25/2016): Type 2 diabetes mellitus with diabetic neuropathy Mixed diabetic hyperlipidemi a associated with type 2 diabetes mellitus 09/19/2015 Overview (10/25/2016): Dyslipidemia Coronary artery disease invo lving shinnecock coronary artery of shinnecock heart without angina pectoris 09/19/2015 Overview (10/25/2016): Coronary artery disease involving [place]in[place]cock coronary artery of shinnecock heart without angina pectoris Hypertension associated with diabetes 09/19/2015 Overview (10/25/2016): HTN (hypertension), benign Chronic atrial fibrillation 09/19/2015 Overview (10/25/2016): Chronic atrial fibrillation 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 0 09/19/2015 Overview (10/25/2016): Chronic anticoagulation Cardiomyopathy 09/19/2015 Overview (10/25/2016): Cardiomyopathy Morbid obesity 09/19/2015 Overview (10/25/2016): Morbid obesity with BMI of 40.0-44.9, adult Diabetic neuropathy 03/21/2015 Overview (10/25/2016): Polyneuropathy in diabetes Resolved Problems Problem Noted Date Diagnosed Date Resolved Date Dyslipidemia associated with type 2 diabetes mellitus ([facility]) 04/23/2016 05/17/2021 Overview (10/24/2016): DM type 2 with diabetic dyslipidemia Automatic implantable cardioverter-defibrillator in situ 09/19/201511/07 Overview (10/25/2016): ICD (implantable cardioverter-defibrillator) in place Encounters Date Type Department Care Team Description 12/28/2024 Anticoagulation Visit [facility] Medical [facility] Cardiology [address] [place] [address] Leeanne Dial, RN Atrial fibrillation ([facility]) [I48.91] (Primary Dx); Chronic atrial fibrillation (HCC); Chronic anticoagulation 12/15/2024 8:30 AM CDT Office Visit [facility] Medical [facility] Cardiology [address] [place] [address] Gregor Whitehead MD Ischemic cardiomyopathy (Primary Dx); Other thrombophilia (HCC); Atrial fibrillation, unspecified type (HCC) 11/20/[address] [facility] Cardiology [address] [place] [address] Martin Cardona RN Atrial fibrillation (CMS/HCC) [I48.91] (Primary Dx); Chronic atrial fibrillation (HCC); Chronic anticoagulation from Last 3 Months Surgical History Surgery Date Site/Laterality Comments OTHER SURGICAL HISTORY Implantable Defibrillator BiV) Medical History Medical History Date Comments Cardiovascular disease Coronary Artery Disease Hx Other Medical Cardiomyopathy Hx Other Medical Arrhythmias PAF Hypertension Hypertension Family History Medical History Relation Name Comments Coronary artery disease Brother 2 Romeo nary Artery Bypass Graft; Heart attack Father Myocardial Infa rction; Cause of : Myocardial Infarction Relation Name Status Comments Brother 1 Alive Brother 2 Father Social History Tobacco Use Types Packs/Day Years Used Date Smoking Tobacco: Former Smokeless Tobacco: Never Tobacco Cessation:Counseling Given: Not Answered Alcohol Use Standard Drinks/Week Comments Yes 0 (1 standard drink = 0.6 oz pur e alcohol) Sex and Gender Information Value Date Recorded Sex Assigned at Not on file Legal Sex 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 Gender Identity Not on file Sexual Orientation Not on file Obstetrics History Last Filed Vital Signs Vital Sign Reading [...] 12/15/2024 8:08 AM CDT Plan of Treatment Health Maintenance Due Date Last Done Comments Albumin Creatinine Ratio, Urine 1959 Colon Cancer Screening-Colonoscopy 1959 Depression Screening 1959 Fall Risk Assessment 1959 Hemoglobin A1C 1959 Hepatitis C Screening 1959 Prostate Cancer Screening-PSA 1959 eGFR 1959 Dilated Eye Exam 1959 Foot Exam 1959 DTaP/Tdap/Td Vaccine (1 - Tdap) 1970 Hepatitis B Screening 1977 Pneumococcal vaccine 65+ (1 of 2 - PCV) 1978 Zoster Vaccine (1 of 2) 2009 Abdominal Aortic Aneurysm (A AA) Screen 2024 Well Visit 65+ 2024 Influenza Vaccine (#1) 2025 9, 05/03/2017, 04/17/2016, Additional history exists Lipid Panel 06/15/2025 06/15/2024, 11/19, 11/22/2021, Additional history exists Procedures Procedure Name Priority Date/Time Associated Diagnosis Comments PROTIME-INR Routine 12/25/2024 6:04 AM CDT Chronic atrial fibrillation (HCC) Chronic anticoagulation ELECTROCARDIOGRAM REPORT Routine 12/15/2024 Ischemic cardiomyopathy Atrial fibrillation, unspecified type (HCC) PROTIME-INR Routine 11/20/2024 6:15 AM CDT Chronic atrial fibrillation (HCC) Chronic anticoagulation POCT LIPID PANEL Routine 06/15/2024 8:41 AM CHARGE OPERATOR Lipid screening from Last 3 Months or Most Recently Relevant to Health Maintenance Results * (ABNORMAL) Protime-INR (12/25/2024 6:04 AM CDT) INR 2.2(H) [facility] Comment: Reference Range 0.9-1.1 Moderate-intensity Warfarin Therapy 2.0-3.0 Higher-intensity Warfarin Therapy 3.0-4.0 PT 22.4(H) 9.0 - 11.5 sec [facility] Comment: For additional information, please refer to http://education.FXTrip/faq/IHG858 (This link is being provided for informational/ educational purposes only.) Blood 12/25/2024 6:04 AM CDT 12/25/2024 6:04 AM CDT Elodia Elias DRAFTING SUPERVISOR LAB BLOOD ORDERABLES Shaista l Result Performing Organization Address [facility] Co de Phone Number [facility] [address] [place] [address] * Electrocardiogram Report (12/15/2024) 12/15/2024 Gregor Whitehead MD ECG ORDERABLES Final Result * (ABNORMAL) Protime-INR (11/20/2024 6:15 AM CDT) INR 2.0(H) Last.fmS antonio Cantu Comment: Reference Range 0.9-1.1 Moderate-intensity Warfarin Therapy 2.0-3.0 Higher-intensity Warfarin Therapy 3.0-4.0 PT 20.9(H) 9.0 - 11.5 sec Last.fmS antonio Cantu Comment: For additional information, please refer to http://education.FXTrip/faq/DIJ461 (This link is being provided for informational/ educational purposes only.) Blood 11/20/2024 6:15 AM CDT 11/20/2024 6:15 AM CDT Narrative [facility] - 11/20/2024 3:26 PM CDT FASTING:NO FASTING: NO Elodia Elias NP LAB BLOOD ORDERABLES Shaista l Result Performing Organization Address [facility] Co de Phone Number [facility] [address] [place] [address] * POCT lipid panel (06/15/2024 8:41 AM CHARGE OPERATOR) Cholesterol, POC 152 mg/dL HDL, POC 36 mg/dL Triglycerides, POC 361 mg/dL LDL Cholesterol POC 44 mg/dL Chol/HDL Ratio, POC 1.2 Non-HDL Cholesterol, POC 116 mg/dL Cholesterol Total, POC 152 mg/dL Capillary blood 06/15/2024 8 :41 AM CHARGE OPERATOR Elodia Elias NP POINT OF CARE TEST ORDERA BLES Final Result from Last 3 Months or Most Recently Relevant to Health Maintenance Insurance AETNA MEDICARE GOLD Care Teams Implementation Services Analyst Relationship Specialty Start Date End Date Robert Jo NP [address] [place] [address] PCP - General Nurse Practitioner 06/15/24
[2025-01-29 15:15] LABS: INR 2.0; Prothrombin Time 22.5 Seconds (11.1-14.7)
[2025-01-29 15:16] LABS: Partial Thromboplastin Time 33.7 Seconds (22.3-36.8)
== END 2025-01-29 14:32 | disposition home or self-care (01) ==
PROVIDERS: PCP Nurse Practitioner; Visit Provider Urology
DX: N20.1 Calculus of ureter (principal)
CPT/HCPCS: 36415; 85610; 85730; 87086

== ENCOUNTER 2025-02-05 00:55 | Day surgery (SDC) | payer MEDICARE, SELFPAY ==
[2025-01-29 13:58] VITALS: BMI 34.9
--- NOTE | 2025-01-29 14:09 | PC.NURSE ---
Report to the Outpatient Waiting Room, entrance under the green pavilion located off [facility], at time _0930am on date __02/05/25 . Planned Procedure Time: __1130am .? Time changes happen often and if your time is changed the preop area will call you the afternoon before. - You and your visitor will be asked to self-screen and do not enter if you have any COVID symptoms. Please call surgeon if you need to reschedule. - A mask is optional within the hospital at this time. Patients may have clear liquids (water, carbonated beverages, clear teas, apple juice) until 3 hours prior to surgery with a maximum of 20 ounces. - No food from midnight until time of surgery and no smoking, or chewing tobacco (or any form of nicotine). No chewing gum, candy or mints. ( 0830am) Take only the following medications with a SIP of water on the morning of surgery: ____Coreg and Alprazolam if needed, Tylenol if needed. DO NOT STOP ANY OF YOUR OTHER PRESCRIPTION MEDICATIONS PRIOR TO SURGERY EXCEPT THE FOLLOWING Hold all vitamins and supplements for [address] Odonnell date to take last dose is 01/29/25 per Janki. Medications to discontinue per physician HOLD COUMADIN for [address] Odonnell Date to take last dose___01/29/25 Please no make-up, nail solomon islander, hairspray, perfume, deodorant, or body powder the day of surgery.? No jewelry (including any body piercings) or valuables the day of surgery, leave them at home.? Please take a shower or bath the night before, or the morning of, surgery with an antibacterial soap.? Wear comfortable, loose fitting clothing.? - Jewelry must be removed prior to entering the operating room.? Rings and piercings that are not removed may be cut off. - The hospital will not accept responsibility for valuables.? - Please leave all valuables, including medications, at home the day of surgery. If you are going home after surgery, a licensed tow driver must drive you home.? - NO public transportation without another adult if you receive anesthesia. - We recommend that an adult stay with you for 24 hours following discharge. - We also recommend that you do not drive, make important decision, drink alcoholic beverages, or take any drugs that were not prescribed by your health care provider for at least 24 hours after your discharge time. Follow any additional instructions given to you from your surgeon. Telephone instructions given to __Patient and asked if any additional questions and then verbalized understanding. Patient advised to call surgeon office or pre surgery nurse liaison [phone] if any additional questions.
[2025-02-05] VITALS (9 sets, daily range): BP systolic 106–137; BP diastolic 73–88; PULSE 79–84; RESP 16–20; TEMP 36.3–36.7; O2SAT 91–98
--- NOTE | ~2025-02-05 | XR_ITS ---
XR abdomen/kub 1V Ordering provider: Grabiel Odonnell MD History: . ESWL . Comparison: None. FINDINGS: BOWEL: Nonobstructive bowel gas pattern. ORGANOMEGALY: None. SIGNIFICANT PATHOLOGIC CALCIFICATIONS: Stone in the left kidney lower pole. Left double-J stent. OTHER: No free air is seen under the diaphragm. IMPRESSION: NO ACUTE ABDOMINAL FINDINGS. Left kidney stone. Left double-J stent. Reviewed, dictated and finalized at location A.
--- OUTSIDE RECORDS SUMMARY | 2025-02-05 00:57 | XMS_ITS | Encounter Summary ---
Author Organization [facility] Address [address] [address] Care Team Providers Care Clinical Faculty Name Role Phone Clint Morales MD Primary Care Provider [phone] Audie Wilkerson Primary Care Provider Robert Jo NP Primary Care Provider [phone] Encounter Details Date Type Department Care Team (Late st Contact Info) Description 10/30/2016 Orders Only [facility] ProviderPatricia MD [address] [place] [address] Social History Tobacco Use Types Packs/Day Years Used Date Smoking Tobacco: Former Cigarettes Q uit: 07/22/2004 Alcohol Use Standard Drinks/Week Comments Yes 0 (1 standard drink = 0.6 oz pur e alcohol) Sex and Gender Information Value Date Recorded Sex Assigned at Not on file 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
--- OUTSIDE RECORDS SUMMARY | 2025-02-05 00:57 | XMS_ITS | Encounter Summary ---
Author Organization [facility] Address 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 Luis Manuel Cee Fitting and Adjustment of Automatic Implantable Cardiac Defibrillator (Primary Dx) Social History Tobacco Use Types Packs/Day Years Used Date Smoking Tobacco: Never Assessed Sex and Gender Information Value Date Recorded Sex Assigned at Not on file Legal Sex Male 3:48 AM BABY SITTER Gender Identity Not on file Sexual Orientation Not on file documented as of this encounter Plan of Treatment Upcoming Encounters Date Type Department Care Team (Late st Contact Info) Description 02/16/2025 8:00 AM CDT Procedure visit [facility] Heart and Vascular - [address] [facility] [address] [place] [address] documented as of this encounter [...] ORDERABLES Final Resu lt Performing Organization Address City/[facility] de Phone Number INTERFACE SYSTEM Refer to [...] HEMATOLOGY ORDERABLES Final Resu Performing Organization Address [facility] de Phone Number INTERFACE SYSTEM Refer to [...] Primary documented in this encounter Care Teams Dispatcher Radioactive Waste Disposal Relationship Specialty Start Date End Date Juan Romero DO [address] [facility] [address] [place] [address] PCP - General Internal Medicine 06/16/24 documented as of this encounter
--- OUTSIDE RECORDS SUMMARY | 2025-02-05 00:57 | XMS_ITS | Clinical Summary ---
Author Organization [employer] [address] [place] [address] Address [address] [place] [address] Care Team Providers Care Marshmallow Maker Name Role Phone Juan Romero Primary Care Provider [phone] Medications cyanocobalamin 1,000 mcg Tablet Take 1,000 mcg by mouth daily. 6 Active [place]-3 Fatty Acids 1,000 mg Capsule daily. 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 Gender Identity Not on file Sexual Orientation [...] Description 02/16/2025 8:00 AM CDT Procedure visit [facility] Heart and Vascular - [address] [address] [facility] [address] [address] [address] [facility] [address] [place] [address] Health Maintenance Due Date Last [...] 2019 Abdominal Aortic Aneurysm (AAA) Screening 2024 Medicare [place] ([place] Prev entative Visit/Annual Wellness Visit 07/22/2024 INFLUENZA VACCINE (#1) 2025 Medical Devices Implanted Type Area Aircraft Avionics Technician Device Identifier Shelf Expiration Date Model / Serial / Lot Defib Icd Momentum Df1 Is1 Paper Bag Press Operator-D [id number] - [id number] Implanted:Qty : [facility] Defibrillator Left: Chest Elastera NELLY 08/10/2023 G125 / [id number] / [facility] Care Teams Marshmallow Maker Relationship Specialty Start Date End Date Juan Romero DO [address] [facility] [address] [facility] [address] [place] [address] PCP - General Internal Medicine 06/16/24
--- OUTSIDE RECORDS SUMMARY | 2025-02-05 00:57 | XMS_ITS | Referral Summary ---
Author Organization [facility] [place] [address] [place] [address] Care Team Providers Care Torpedo Man Name Role Phone Robert Jo NP Primary Care Provider Encounters Date Type Department Care Team Description 12/28/2024 Anticoagulation Visit [facility] Cardiology [address] [place] [phone] Leeanne Dial RN Atrial fibrillation ([facility]/HCC) [I48.91] (Primary Dx); Chronic atrial fibrillation (HCC); Chronic anticoagulation 12/15/2024 8:30 AM CDT Office Visit [address] [phone] Gregor Whitehead MD Ischemic cardiomyopathy (Primary Dx); Other thrombophilia (HCC); Atrial fibrillation, unspecified type (HCC) 11/20/2024 Anticoagulation Visit [facility] Cardiology [address] [place] [phone] Martin Cardona RN Atrial fibrillation ([facility]/HCC) [I48.91] (Primary Dx); Chronic atrial fibrillation (HCC); [...] le cardioverter-defibrillator) in place 04/23/2016 Overview (02/22/2017): [employer] BIV ICD, Dx; ICM, CHF, Vt, Afib. DOI 10/05/2010, Chronic leads 10/2005. Device followed by Dr Cee @ [facility] Paroxysmal atrial fibrillation 04/23/2016 Overview (10/25/2016): Paroxysmal atrial fibrillation Mononeuropathy associated with type II diabetes mellitus 09/19/2015 Overview (10/25/2016): Type 2 diabetes mellitus with diabetic neuropathy Mixed diabetic hyperlipidemi a associated with type 2 diabetes mellitus 09/19/2015 Overview (10/25/2016): Dyslipidemia Coronary artery disease invo lving [place] coronary artery of sw[place] heart without angina pectoris 09/19/2015 Overview (10/25/2016): Coronary artery disease involving [place] coronary artery of swinomish heart without angina pectoris Hypertension associated with diabetes 09/19/2015 Overview (10/25/2016): HTN (hypertension), benign Chronic atrial fibrillation 09/19/2015 Overview (10/25/2016): Chronic atrial fibrillation senior living current use of anticoagulant therapy 0 09/19/2015 [...] on file 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 Gender Identity Not on file Sexual Orientation [...] POCT LIPID PANEL Routine 06/15/2024 8:41 AM FISHING REEL ASSEMBLER Lipid screening from Last 3 Months or Most Recently Relevant to Health Maintenance Results * (ABNORMAL) Protime-INR (12/25/2024 6:04 AM CDT) INR 2.2(H) [facility] Comment: Reference Range 0.9-1.1 Moderate-intensity Warfarin Therapy 2.0-3.0 Higher-intensity Warfarin Therapy 3.0-4.0 PT 22.4(H) 9.0 - 11.5 sec [facility] Comment: For additional information, please refer to http://Apparcando.Globe Wireless/faq/FUC793 (This link is being provided for informational/ educational purposes only.) Blood 12/25/2024 6:04 AM CDT 12/25/2024 6:04 AM CDT Elodia Elias NP LAB BLOOD ORDERABLES Shaista l Result [facility] [address] [place] [address] * Electrocardiogram Report (12/15/2024) 12/15/2024 us Gregor Whitehead MD ECG ORDERABLES Final Result * (ABNORMAL) Protime-INR (11/20/2024 6:15 AM CDT) INR 2.0(H) [facility] Comment: Reference Range 0.9-1.1 Moderate-intensity Warfarin Therapy 2.0-3.0 Higher-intensity Warfarin Therapy 3.0-4.0 PT 20.9(H) 9.0 - 11.5 sec [facility] Cantu Comment: For additional information, please refer to http://Apparcando.Globe Wireless/faq/RUJ330 (This link is being provided for informational/ educational purposes only.) Blood 11/20/2024 6:15 AM CDT 11/20/2024 6:15 AM CDT Narrative [facility] - 11/20/2024 3:26 PM CDT FASTING:NO FASTING: NO Elodia Elias NP LAB BLOOD ORDERABLES Shaista l Result SAE [facility] [address] [place] [address] * POCT lipid panel (06/15/2024 8:41 AM FISHING REEL ASSEMBLER) Cholesterol, POC 152 mg/dL HDL, POC 36 mg/dL Triglycerides, POC 361 mg/dL LDL Cholesterol POC 44 mg/dL Chol/HDL Ratio, POC 1.2 Non-HDL Cholesterol, POC 116 mg/dL Cholesterol Total, POC 152 mg/dL Capillary blood 06/15/2024 8 :41 AM FISHING REEL ASSEMBLER Elodia Elias NP POINT OF CARE TEST ORDERA BLES Final Result from Last 3 Months or Most Recently Relevant to Health Maintenance Insurance [facility] MEDICARE [facility] AETNA MEDICARE GOLD Care Teams Torpedo Man Relationship Specialty Start Date End Date Robert Jo NP [address] [facility] [address] [place] [address] PCP - General Nurse Practitioner 06/15/24
--- OUTSIDE RECORDS SUMMARY | 2025-02-05 00:57 | XMS_ITS | Clinical Summary ---
Author Organization [facility] [place] [address] [facility] [address] [facility] [address] [place] [address] Care Team Providers Care Flexographic Printing Machinist Name Role Phone Robert Jo NP Primary Care Provider [phone] Allergies No known active allergies Medications ascorbic [...] Tachycardia 09/06/2020 H/O cardiomyopathy 12/23/2017 Atrial fibrillation (CMS/[facility]) [I48.91] 7 Chronic anticoagulation 01/28/2017 Hypotension 04/23/2016 Overview (10/24/2016): Hypotension, unspecified hypotension type Biventricular ICD (implantab le cardioverter-defibrillator) in place 04/23/2016 Overview (02/22/2017): [place] [employer] BIV ICD, Dx; ICM, CHF, Vt, Afib. DOI 10/05/2010, Chronic leads 10/2005. Device followed by Dr Cee @ [facility] Paroxysmal atrial fibrillation 04/23/2016 Overview (10/25/2016): Paroxysmal atrial fibrillation Mononeuropathy associated with type II diabetes mellitus 09/19/2015 Overview (10/25/2016): Type 2 diabetes mellitus with diabetic neuropathy Mixed diabetic hyperlipidemi a associated with type 2 diabetes mellitus 09/19/2015 Overview (10/25/2016): Dyslipidemia Coronary artery disease invo lving galena coronary artery of galena heart without angina pectoris 09/19/2015 Overview (10/25/2016): Coronary artery disease involving galena coronary artery of galena heart without angina pectoris Hypertension associated with diabetes 09/19/2015 Overview (10/25/2016): HTN (hypertension), benign Chronic atrial fibrillation 09/19/2015 Overview (10/25/2016): Chronic atrial 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 0 09/19/2015 Overview (10/25/2016): Chronic anticoagulation Cardiomyopathy 09/19/2015 Overview (10/25/2016): Cardiomyopathy Morbid obesity 09/19/2015 Overview (10/25/2016): Morbid obesity with BMI of 40.0-44.9, adult Diabetic neuropathy 03/21/2015 Overview (10/25/2016): Polyneuropathy in diabetes Resolved Problems Problem Noted Date Diagnosed Date Resolved Date Dyslipidemia associated with type 2 diabetes mellitus ([facility]) 04/23/2016 05/17/2021 Overview (10/24/2016): DM type 2 with diabetic dyslipidemia Automatic implantable cardioverter-defibrillator in situ 09/19/201511/07 Overview (10/25/2016): ICD (implantable cardioverter-defibrillator) in place Encounters Date Type Department Care Team Description 12/28/2024 Anticoagulation Visit [facility] Medical [facility] Cardiology [address] [place] [address] Leeanne Dial, RN Atrial fibrillation ([facility]) [I48.91] (Primary Dx); Chronic atrial fibrillation (HCC); Chronic anticoagulation 12/15/2024 8:30 AM CDT Office Visit [facility] Medical Group Cardiology [address] [place] [address] Gregor Whitehead MD Ischemic cardiomyopathy (Primary Dx); Other thrombophilia (HCC); Atrial fibrillation, unspecified type (HCC) 11/20/2024 Anticoagulation Visit [facility] Cardiology [address] [place] [address] Martin Cardona RN Atrial fibrillation (CMS/HCC) [I48.91] [...] on file Legal Sex Male 2:13 AM PILE DRIVING NOZZLEMAN Gender Identity Not on file Sexual Orientation [...] POCT LIPID PANEL Routine 06/15/2024 8:41 AM PILE DRIVING NOZZLEMAN Lipid screening from Last 3 Months or Most Recently Relevant to Health Maintenance Results * (ABNORMAL) Protime-INR (12/25/2024 6:04 AM CDT) INR 2.2(H) [facility] Comment: Reference Range 0.9-1.1 Moderate-intensity Warfarin Therapy 2.0-3.0 Higher-intensity Warfarin Therapy 3.0-4.0 PT 22.4(H) 9.0 - 11.5 sec [facility]odd Cantu Comment: For additional information, please refer to http://education.TapCanvas/faq/XAG468 (This link is being provided for informational/ educational purposes only.) Blood 12/25/2024 6:04 AM CDT 12/25/2024 6:04 AM CDT Elodia Elias HUMAN RESOURCES OPERATIONS DIRECTOR LAB BLOOD ORDERABLES Shaista l Result Performing Organization Address [facility] Co de Phone Number [facility] [address] [place] [address] * Electrocardiogram Report (12/15/2024) 12/15/2024 Gregor Whitehead MD ECG ORDERABLES Final Result * (ABNORMAL) Protime-INR (11/20/2024 6:15 AM CDT) INR 2.0(H) [facility] Labs[facility] antonio Cantu Comment: Reference Range 0.9-1.1 Moderate-intensity Warfarin Therapy 2.0-3.0 Higher-intensity Warfarin Therapy 3.0-4.0 PT 20.9(H) 9.0 - 11.5 sec [facility] Labs[facility] antonio Cantu Comment: For additional information, please refer to http://education.TapCanvas/faq/KTQ031 (This link is being provided for informational/ educational purposes only.) Blood 11/20/2024 6:15 AM CDT 11/20/2024 6:15 AM CDT Narrative [facility] - 11/20/2024 3:26 PM CDT FASTING:NO FASTING: NO Elodia Elias NP LAB BLOOD ORDERABLES Shaista l Result Performing Organization Address [facility] Co de Phone Number [facility] [address] [place] [address] * POCT lipid panel (06/15/2024 8:41 AM PILE DRIVING NOZZLEMAN) Cholesterol, POC 152 mg/dL HDL, POC 36 mg/dL Triglycerides, POC 361 mg/dL LDL Cholesterol POC 44 mg/dL Chol/HDL Ratio, POC 1.2 Non-HDL Cholesterol, POC 116 mg/dL Cholesterol Total, POC 152 mg/dL Capillary blood 06/15/2024 8 :41 AM PILE DRIVING NOZZLEMAN Elodia Elias NP POINT OF CARE TEST ORDERA BLES Final Result from Last 3 Months or Most Recently Relevant to Health Maintenance Insurance [employer] MEDICARE GOLD Care Teams Flexographic Printing Machinist Relationship Specialty Start Date End Date Robert Jo NP [address] [place] [address] PCP - General Nurse Practitioner 06/15/24
--- OUTSIDE RECORDS SUMMARY | 2025-02-05 00:57 | XMS_ITS | Encounter Summary ---
Author Organization [facility] Address 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 [address] [place] [address] documented as of this encounter Visit Diagnoses Not on filedocumented in this encounter Care Teams Classification And Treatment Director Relationship Specialty Start Date End Date Juan Romero DO [address] [place] [address] PCP - General Internal Medicine 06/16/24 documented as of this encounter
--- NOTE | 2025-02-05 06:05 | WPDHPUPDATE1 ---
History and Physical Update Update Date/Time: 02/05/25 06:05 History and Physical has been reviewed, including an updated exam of the patient. There are NO changes in the patient's condition. Risks, benefits, and alternatives have been discussed and questions answered. Patient agrees to proceed with procedure.
[2025-02-05] MEDS: LACTATED RINGERS 1,000 ML 30 ML IV CONT ×2 (08:55→11:17)
[2025-02-05 09:18] LABS: INR 1.0; Prothrombin Time 13.6 Seconds (11.1-14.7)
[2025-02-05 09:19] LABS: Partial Thromboplastin Time 28.9 Seconds (22.3-36.8)
--- NOTE | 2025-02-05 10:06 | WPDANESEPPF ---
Anes - Initial Pre Proc Eval Procedure: Operation Date: 02/05/25 10:30 Proposed Procedures p Left Extracorporeal Shock Wave Lithotripsy, - Grabiel Odonnell MD s Cystoscopy with Left Stent Removal, Possible Replacement - Grabiel Odonnell MD Date/Time: 02/05/25 10:06 Surgeon: Grabiel Odonnell MD Pre Op Diagnosis: left ureteral stone Patient Data Age: 64 Gender: M Height: 1.83 m Weight: 117.5 kg Last Vital Signs Temp 97.3 F L 02/05/25 08:25 Pulse 82 02/05/25 08:25 Resp 20 02/05/25 08:25 BP 132/88 02/05/25 08:25 Pulse Ox 98 02/05/25 08:25 O2 Del Method Room Air 02/05/25 08:25 Allergies Allergy/AdvReac Type Severity Reaction Status Date / Time grass pollen Allergy Mild Itching Verified 02/05/25 08:58 Home Medications ?Medication ?Instructions ?Recorded ?Confirmed ?Type aspirin 81 mg tablet,delayed 81 mg PO DAILY 07/19/20 02/05/25 History release carvedilol 6.25 mg tablet 6.25 mg PO Q12H 07/19/20 02/05/25 History furosemide 40 mg tablet 40 mg PO QAM 07/19/20 02/05/25 History lisinopril 10 mg tablet 10 mg PO DAILY 07/19/20 02/05/25 History mecobalamin (vitamin B12) 1,000 1,000 mcg PO DAILY 07/19/20 02/05/25 History mcg chewable tablet multivitamin 1 tablet PO DAILY 07/19/20 02/05/25 History warfarin 10 mg tablet 10 mg PO .COMPLEX 07/19/20 02/05/25 History warfarin 7.5 mg tablet 7.5 mg PO .COMPLEX 07/19/20 02/05/25 History ascorbate calcium (vitamin C) 500 500 mg PO DAILY 06/07/21 02/05/25 History mg tablet simvastatin 20 mg tablet 20 mg PO DAILY 08/13/22 02/05/25 History warfarin 2.5 mg tablet 2.5 mg PO .COMPLEX 11/13/22 02/05/25 History empagliflozin 25 mg tablet 25 mg PO DAILY #90 tabs 02/14/23 02/05/25 Rx (Jardiance) insulin aspar prot-insulin aspart 20 unit subcut BID 02/14/23 02/05/25 History 100 unit/mL (70-30) subcutaneous pen (Novolog Mix 70-30FlexPen U-100) tadalafil 20 mg tablet (Cialis) 20 mg PO DAILY PRN sexual activity 09/10/23 01/29/25 Rx #8 tabs metformin 500 mg tablet,extended See Rx Instructions .Route 05/29/24 02/05/25 Rx release 24 hr .COMPLEX #360 tabs semaglutide 2 mg/dose (8 mg/3 mL) 2 mg (0.75 mL) subcut WEEKLY #9 mL 09/10/24 02/05/25 Rx subcutaneous pen injector (Ozempic) alprazolam 0.5 mg tablet 0.5 mg PO BID PRN anxiety #180 tabs 12/31/24 02/05/25 Rx cholecalciferol (vitamin D3) 125 125 mcg PO DAILY #90 caps 01/18/25 02/05/25 Rx mcg (5,000 unit) capsule omega-3 fatty acids 1,000 mg 1,000 mg PO DAILY 01/29/25 01/29/25 History capsule Laboratory Tests 02/05/25 02/05/25 08:48 08:56 PT 13.6 D Seconds (11.1-14.7) INR 1.0 APTT 28.9 Seconds (22.3-36.8) POC Capillary Glucose 122 H mg/dl (65-105) Patient hx anesthesia problems: none Family hx anesthesia problems: none Results Review: All pre-operative results and documents have been reviewed as part of the pre-operative evaluation. [facility] Past Medical History Medical History COVID Type 2 diabetes mellitus Other fatigue CAD (coronary artery disease) Hyperlipidemia Hypertension Obesity (BMI 35.0-39.9 without comorbidity) Anxiety History of RI (myocardial infarction) Heart disease Surgical History Surgical History History of renal stent History of heart artery stent Cardiac defibrillator in place Family History Family History Father Heart disease Acute myocardial infarction Mother No known problems Acute myocardial infarction Sibling Heart disease Asthma Social History Social History Smoking packs per day: 1 Smoking cigarettes per day: 20.0 Years smoked: 20 Smoking pack-years: 20.00 Smoking status: Former smoker Tobacco type: cigarettes Second hand tobacco smoke exposure: Yes Smoking end date: 07/22/04 Alcohol intake: never Substance use: never Substance use type: does not use Do You Feel Safe in your Home?: Yes Lack of Transportation: No Lack of Food: Never True Current Housing: I Have Housing Concerned About Future Housing: No Difficulty Paying Gas/Electric Bills: No Difficulty Paying for Meds: No Currently Unemployed: No Education: High School Diploma/GED Difficulty w/ Childcare or Family Care: No Living arrangements: with family Additional living arrangements comments: 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 Gender identity (if verbalized by the patient): Male Spiritual care concerns: No Anes - Eval Final PreProcedure Day of Procedure 02/05/25 10:06 Patient weight: obese Lungs: normal air movement Airway: Mallampati scale class II Neurological: alert and oriented Last oral intake: >/= 8 hours ASA classification: IV Emergent: no Anesthetic plan: proceed Anesthesia type and monitoring: general LMA and standard monitoring Results Review: All pre-operative results and documents have been reviewed as part of the pre-operative evaluation. HTN, DM fsbs 122, BMI 35, hyperlipidemia, pacemaker/AICD in place w more recent DAYANA reviewed w nml LVEF, mod MR. Informed Consent: The patient's anesthetic plan and its attendant risks and benefits were discussed with the patient/family/POA. Questions were solicited and answers provided to the satisfaction of the patient/family/POA.
[2025-02-05] MEDS: ceFAZolin 2 GM in SODIUM CHLORIDE 0.9% IV 50 ML 100 ML IVPB (10:24)
--- NOTE | 2025-02-05 10:35 | W.PM.PROC2 ---
Procedure Note - Detailed Date of Procedure 02/05/25 Pre-op Diagnosis Left renal stone Post-op Diagnosis Same Procedure Performed Cystoscopy, left ureteral stent removal, left ESWL Surgeon Grabiel Odonnell MD Anesthesia General Description of Procedure The patient was brought to the operative suite where he was placed in the supine position on the Dornier lithotripter table. Flexible cystoscopy was undertaken with a 16F flexible cystoscopy. There were no urethral strictures. The prostatic urethra estimated length was 2.25cm. There was mild obstruction of the prostatic urethra. The bladder mucosa was normal and there was a single, orthotopic ureteral orifice bilaterally. the tip of the indwelling stent is grasped and the stent is removed with ease. The patient was then repositioned in the supine position with the focal point of the lithotriptor on a 7mm left renal calculus. A total of 2500 shocks were delivered at a power setting of 4. There appeared to be good fragmentation of the stone. The patient tolerated the procedure well and was taken to the recovery room in good condition. Complications No immediate complications Condition Stable Disposition PACU
== END 2025-02-05 13:04 | disposition home or self-care (01) ==
PROVIDERS: PCP Nurse Practitioner; Visit Provider Urology
PROC: (CPT 50590; principal; 2025-02-05 10:30)
PROC: (CPT 52310; 2025-02-05 10:30)
DX: N20.0 Calculus of kidney (principal); E11.9 Type 2 diabetes mellitus without complications; I11.9 Hypertensive heart disease without heart failure; I25.2 Old myocardial infarction; I25.10 Atherosclerotic heart disease of native coronary artery without angina pectoris; E78.5 Hyperlipidemia, unspecified; Z95.5 Presence of coronary angioplasty implant and graft; Z95.810 Presence of automatic (implantable) cardiac defibrillator; Z79.01 Long term (current) use of anticoagulants; Z87.891 Personal history of nicotine dependence; E66.9 Obesity, unspecified; Z68.35 Body mass index [BMI] 35.0-35.9, adult
CPT/HCPCS: 50590; 52310; 36415; 74018; 82948; 85610; 85730; J0690; J2003; J2250; J2405; J2704; J3010; J7120

== ENCOUNTER 2025-02-19 13:12 | Outpatient (CLI) | payer MEDICARE, SELFPAY ==
--- NOTE | ~2025-02-19 | XR_ITS ---
XR abdomen/kub 1V 02/19/2025 13:30 Indication: Renal stone Procedure: KUB Comparison: 02/05/2025 Findings: There is a small left renal stone. Bowel gas pattern nonobstructive. Moderate colonic fecal loading. Moderate osteoarthritis of the hips. There are pelvic phleboliths. Impression: 1: Left nephrolithiasis. Reviewed, dictated and finalized at location A. Impression: 1: Left nephrolithiasis.
--- OUTSIDE RECORDS SUMMARY | 2025-02-19 13:16 | XMS_ITS | Encounter Summary ---
Author Organization [facility] Healthcare Address [address] [place] [address] Care Team Providers Care Flatware Maker Name Role Phone Robert Jo NP Primary Care Provider [phone] Encounter Details Date Type Department Care Team (Late st Contact Info) Description 02/15/2025 Telephone [facility] Medical Group Cardiology [address] [place] [address] Gregor Whitehead MD [address] [place] [address] Social History Tobacco Use Types Packs/Day Years Used Date Smoking Tobacco: Former Smokeless Tobacco: Never Alcohol Use Standard Drinks/Week Comments Yes 0 (1 standard drink = 0.6 oz pur e alcohol) Sex and Gender Information Value Date Recorded Sex Assigned at Not on file 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 * Telephone Encounter - Denisa Barth - 02/15/2025 8:47 AM CDT Pt returned Ning Nguyen call about his INR requesting a call back Contact: documented in this encounter Plan of Treatment Not on file documented as of this encounter Visit Diagnoses Not on filedocumented in this encounter Care Teams Flatware Maker Relationship Specialty Start Date End Date Robert Jo NP [address] [employer], [place] [id number] PCP - General Nurse Practitioner 06/15/24 documented as of this encounter
--- OUTSIDE RECORDS SUMMARY | 2025-02-19 13:16 | XMS_ITS | Encounter Summary ---
Author Organization [facility] Address [address] [place] [address] Care Team Providers Care Flipping Machine Operator Name Role Phone Juan Romero DO Primary Care Provider [phone] Encounter Details Date Type Department Care Team (Late st Contact Info) Description 02/17/2025 Results Follow-Up [facility] Heart and Vascular - [address] [facility] [address] [address] [facility] [place] [address] [place] [address] [facility] [place] [address] ICD PROGRAM/EVAL MULTI-LEAD Social History Tobacco Use Types Packs/Day Years Used Date Smoking Tobacco: Former Sex and Gender Information Value Date Recorded Sex Assigned at Not on file Legal Sex Male 3:48 AM CHIN STRAP MAKER Gender Identity Not on file Sexual Orientation Not on file documented as of this encounter Miscellaneous Notes * Result Encounter Note - Gregg Osorio MD - 02/17/2025 4:45 PM CDT Reviewed and agree with the documentation. documented in this encounter Plan of Treatment Upcoming Encounters Date Type Department Care Team (Late st Contact Info) Description 06/08/2025 9:00 AM CHIN STRAP MAKER Procedure visit [facility] Heart and Vascular - [address] [facility] [address] [address] [facility] [address] documented as of this encounter Visit Diagnoses Not on filedocumented in this encounter Care Teams Flipping Machine Operator Relationship Specialty Start Date End Date Juan Romero DO [address] [facility] [address] [facility] [address] [place] [address] PCP - General Internal Medicine 06/16/24 documented as of this encounter
--- OUTSIDE RECORDS SUMMARY | 2025-02-19 13:16 | XMS_ITS | Encounter Summary ---
Author Organization [facility] Medical Group Address [address] [address] Care Team Providers Care Cat Wagon Operator Name Role Phone Clint Morales MD Primary Care Provider [phone] Audie Wilkerson Primary Care Provider Robert Jo NP Primary Care Provider [phone] Encounter Details Date Type Department Care Team (Late st Contact Info) Description 10/30/2016 Orders Only [facility] ProviderPatricia MD [address] [place] [address] Social History Tobacco Use Types Packs/Day Years Used Date Smoking Tobacco: Former Cigarettes Q uit: 07/22/2004 Alcohol Use Standard Drinks/Week Comments Yes 0 (1 standard drink = 0.6 oz pur e alcohol) Sex and Gender Information Value Date Recorded Sex Assigned at Not on file Legal Sex Male 2:13 AM ZIGZAG STITCHER Gender Identity Not on file Sexual Orientation [...] on filedocumented in this encounter Care Teams Cat Wagon Operator Relationship Specialty Start Date End Date Clint Morales MD [address] [place] [address] PCP - General 10/19/16 09/05/20 Audie Wilkerson PA [address] [place], [place] [id number] PCP - General Physician Paralegal Supervisor 09/06/20 06/14/24 Robert Jo NP [address] [place] [address] PCP - General Nurse Practitioner 06/15/24 documented as of this encounter
--- OUTSIDE RECORDS SUMMARY | 2025-02-19 13:16 | XMS_ITS | Referral Summary ---
Author Organization [place] [address] [place] [phone] Care Team Providers Care Recruiting Coordinator Name Role Phone Robert Jo NP Primary Care Provider [phone] Encounters Date Type Department Care Team Description 02/15/2025 Telephone [facility] Medical [facility] Cardiology [address] [place] [address] [place] [phone] Gregor Whitehead MD 02/12/[address] [facility] Cardiology at [address] [place] [phone] Leeanne Dial RN Atrial fibrillation ([facility]/HCC) [I48.91] (Primary Dx); Chronic atrial fibrillation (HCC); Chronic anticoagulation 12/28/2024 Anticoagulation Visit [facility] Cardiology [address] [place] [address] [place] [phone] Leeanne Dial RN Atrial fibrillation (CMS/HCC) [I48.91] (Primary Dx); Chronic atrial fibrillation (HCC); Chronic anticoagulation 12/15/2024 8:30 AM CDT Office Visit [facility] Cardiology [address] [place] [address] [place] [phone] Gregor Whitehead MD Ischemic cardiomyopathy (Primary Dx); Other thrombophilia (HCC); Atrial fibrillation, unspecified type (HCC) 11/20/2024 Anticoagulation Visit [facility] Cardiology [address] [place] [address] [address] [place] [phone] Martin Cardona RN Atrial fibrillation (CMS/HCC) [I48.91] [...] le cardioverter-defibrillator) in place 04/23/2016 Overview (02/22/2017): [employer] BIV ICD, Dx; ICM, CHF, Vt, Afib. DOI 10/05/2010, Chronic leads 10/2005. Device followed by Dr Cee @ [facility] Paroxysmal atrial fibrillation 04/23/2016 Overview (10/25/2016): Paroxysmal atrial fibrillation Mononeuropathy associated with type II diabetes mellitus 09/19/2015 Overview (10/25/2016): Type 2 diabetes mellitus with diabetic neuropathy Mixed diabetic hyperlipidemi a associated with type 2 diabetes mellitus 09/19/2015 Overview (10/25/2016): Dyslipidemia Coronary artery disease invo lving [place] coronary artery of [place] heart without angina pectoris 09/19/2015 Overview (10/25/2016): Coronary artery disease involving [place] coronary artery of [place]unkey heart without angina pectoris Hypertension associated with diabetes 09/19/2015 Overview (10/25/2016): HTN (hypertension), benign Chronic atrial fibrillation 09/19/2015 Overview (10/25/2016): Chronic atrial fibrillation finish mixer current use of anticoagulant therapy 0 09/19/2015 Overview (10/25/2016): Chronic anticoagulation Cardiomyopathy 09/19/2015 Overview (10/25/2016): Cardiomyopathy Morbid obesity 09/19/2015 Overview (10/25/2016): Morbid obesity with BMI of 40.0-44.9, adult Diabetic neuropathy 03/21/2015 Overview (10/25/2016): Polyneuropathy in diabetes Resolved Problems Problem Noted Date Diagnosed Date Resolved Date Dyslipidemia associated with type 2 diabetes mellitus ([facility]) 04/23/2016 05/17/2021 Overview (10/24/2016): DM [...] on file Legal Sex Male 2:13 AM COAT REPAIR INSPECTOR Gender Identity Not on file Sexual [...] Priority Date/Time Associated Diagnosis Comments PROTIME-INR Routine 02/12/2025 6:13 AM CDT Chronic atrial fibrillation (HCC) Chronic anticoagulation PROTIME-INR Routine 12/25/2024 6:04 AM CDT Chronic atrial fibrillation (HCC) Chronic anticoagulation ELECTROCARDIOGRAM REPORT Routine 12/15/2024 Ischemic cardiomyopathy Atrial fibrillation, unspecified type (HCC) PROTIME-INR Routine 11/20/2024 6:15 AM CDT Chronic atrial fibrillation (HCC) Chronic anticoagulation POCT LIPID PANEL Routine 06/15/2024 8:41 AM COAT REPAIR INSPECTOR Lipid screening from Last 3 Months or Most Recently Relevant to Health Maintenance Results * (ABNORMAL) Protime-INR (02/12/2025 6:13 AM CDT) INR 1.3(H) [facility] Comment: Reference Range 0.9-1.1 Moderate-intensity Warfarin Therapy 2.0-3.0 Higher-intensity Warfarin Therapy 3.0-4.0 PT 14.0(H) 9.0 - 11.5 sec [facility] Comment: For additional information, please refer to http://education.[employer]/faq/VZI671 (This link is being provided for informational/ educational purposes only.) Blood 02/12/2025 6:13 AM CDT 02/12/2025 6:14 AM CDT Elodia Elias NP LAB BLOOD ORDERABLES Shaista l Result [facility] [address] [place] [address] * (ABNORMAL) Protime-INR (12/25/2024 6:04 AM CDT) INR 2.2(H) Dario CBRITETodd Cantu Comment: Reference Range 0.9-1.1 Moderate-intensity Warfarin Therapy 2.0-3.0 Higher-intensity Warfarin Therapy 3.0-4.0 PT 22.4(H) 9.0 - 11.5 sec [facility] Comment: For additional information, please refer to http://[employer]/faq/JFZ590 (This link is being provided for informational/ educational purposes only.) Blood 12/25/2024 6:04 AM CDT 12/25/2024 6:04 AM CDT Elodia Lirianoa DYE AND CHEMICAL COORDINATOR LAB BLOOD ORDERABLES Shaista l Result Performing Organization Address [facility] Co de Phone Number [facility] [address] [place] [address] * Electrocardiogram Report (12/15/2024) 12/15/2024 Gregor Whitehead MD ECG ORDERABLES Final Result * (ABNORMAL) Protime-INR (11/20/2024 6:15 AM CDT) INR 2.0(H) [facility] Comment: Reference Range 0.9-1.1 Moderate-intensity Warfarin Therapy 2.0-3.0 Higher-intensity Warfarin Therapy 3.0-4.0 PT 20.9(H) 9.0 - 11.5 sec [facility] Comment: For additional information, please refer to http://[employer]/faq/HAH524 (This link is being provided for informational/ educational purposes only.) Blood 11/20/2024 6:15 AM CDT 11/20/2024 6:15 AM CDT Narrative [facility] - 11/20/2024 3:26 PM CDT FASTING:NO FASTING: NO Elodia Elias DYE AND CHEMICAL COORDINATOR LAB BLOOD ORDERABLES Shaista l Result Performing Organization Address [facility] Co de Phone Number [facility] [address] [place] [address] * POCT lipid panel (06/15/2024 8:41 AM COAT REPAIR INSPECTOR) Cholesterol, POC 152 mg/dL HDL, POC 36 mg/dL Triglycerides, POC 361 mg/dL LDL Cholesterol POC 44 mg/dL Chol/HDL Ratio, POC 1.2 Non-HDL Cholesterol, POC 116 mg/dL Cholesterol Total, POC 152 mg/dL Capillary blood 06/15/2024 8 :41 AM COAT REPAIR INSPECTOR Elodia Elias NP POINT OF CARE TEST ORDERA BLES Final Result from Last 3 Months or Most Recently Relevant to Health Maintenance Insurance MEDICARE [facility] AETNA MEDICARE GOLD Care Teams Recruiting Coordinator Relationship Specialty Start Date End Date Robert Jo NP [address] [facility] 1 [facility] 1 [place] [address] PCP - General Nurse Practitioner 06/15/24
--- OUTSIDE RECORDS SUMMARY | 2025-02-19 13:16 | XMS_ITS | Encounter Summary ---
Author Organization [facility] Address [address] [place] [address] Care Team Providers Care Arboreal Scientist Name Role Phone Juan Romero DO Primary Care Provider [phone] Encounter Details Date Type Department Care Team (Latest Contact Info) Description 01/24/2006 Outpatient Historical [employer]AL TRANSPORT OPERATOR Luis Manuel Cee Fitting and Adjustment of Automatic Implantable Cardiac Defibrillator (Primary Dx) Social History Tobacco Use Types Packs/Day Years Used Date Smoking Tobacco: Never Assessed Sex and Gender Information Value Date Recorded Sex Assigned at Not on file Legal Sex Male 3:48 AM SHIPPER AND RECEIVING Gender Identity Not on file Sexual Orientation Not on file documented as of this encounter Plan of Treatment Upcoming Encounters Date Type Department Care Team (Late st Contact Info) Description 06/08/2025 9:00 AM SHIPPER AND RECEIVING Procedure visit [facility] - [address] [facility] [address] [address] [facility] [address] [place] [address] documented as of this encounter [...] K/uL INTERFACE SYSTEM 01/24/2006 6:10 AM CDT [facility] HEMATOLOGY ORDERABLES Final Resu lt Performing Organization Address City/[facility] de Phone Number INTERFACE SYSTEM [...] HEMATOLOGY ORDERABLES Final Resu Performing Organization Address [facility] de Phone Number INTERFACE SYSTEM [...] Primary documented in this encounter Care Teams Arboreal Scientist Relationship Specialty Start Date End Date Juan Romero DO [address] [facility] [address] [place] [phone] PCP - General Internal Medicine 06/16/24 documented as of this encounter
--- OUTSIDE RECORDS SUMMARY | 2025-02-19 13:16 | XMS_ITS | Clinical Summary ---
Author Organization [facility] [address] [facility] [address] [facility] [address] [place] [address] Care Team Providers Care Casket Upholsterer Name Role Phone Robert Jo NP Primary Care Provider [phone] Allergies No known active allergies Medications ascorbic [...] 09/06/2020 H/O cardiomyopathy 12/23/2017 Atrial fibrillation (CMS/[facility]) [I48.91] 7 Chronic anticoagulation 01/28/2017 Hypotension 04/23/2016 Overview (10/24/2016): Hypotension, unspecified hypotension type Biventricular ICD (implantab le cardioverter-defibrillator) in place 04/23/2016 Overview (02/22/2017): [employer] BIV ICD, Dx; ICM, CHF, Vt, Afib. DOI 10/05/2010, Chronic leads 10/2005. Device followed by Dr Cee @ [facility] Paroxysmal atrial fibrillation 04/23/2016 Overview (10/25/2016): Paroxysmal atrial fibrillation Mononeuropathy associated with type II diabetes mellitus 09/19/2015 Overview (10/25/2016): Type 2 diabetes mellitus with diabetic neuropathy Mixed diabetic hyperlipidemi a associated with type 2 diabetes mellitus 09/19/2015 Overview (10/25/2016): Dyslipidemia Coronary artery disease invo lving [place] coronary artery of [place] heart without angina pectoris 09/19/2015 Overview (10/25/2016): Coronary artery disease involving [place] coronary artery of [place] heart without angina pectoris Hypertension associated with diabetes 09/19/2015 Overview (10/25/2016): HTN (hypertension), benign Chronic atrial fibrillation 09/19/2015 Overview (10/25/2016): Chronic atrial fibrillation group home current use of anticoagulant therapy 0 09/19/2015 Overview (10/25/2016): Chronic anticoagulation Cardiomyopathy 09/19/2015 Overview (10/25/2016): Cardiomyopathy Morbid obesity 09/19/2015 Overview (10/25/2016): Morbid obesity with BMI of 40.0-44.9, adult Diabetic neuropathy 03/21/2015 Overview (10/25/2016): Polyneuropathy in diabetes Resolved Problems Problem Noted Date Diagnosed Date Resolved Date Dyslipidemia associated with type 2 diabetes mellitus ([facility]) 04/23/2016 05/17/2021 Overview (10/24/2016): DM type 2 with diabetic dyslipidemia Automatic implantable cardioverter-defibrillator in situ 09/19/201511/07 Overview (10/25/2016): ICD (implantable cardioverter-defibrillator) in place Encounters Date Type Department Care Team Description 02/15/2025 Telephone [facility] Cardiology [address] [place] [address] Gregor Whitehead MD 02/12/2025 Anticoagulation Visit [facility] Cardiology at [address] [place] [address] Leeanne Dial RN Atrial fibrillation (CMS/HCC) [I48.91] (Primary Dx); Chronic atrial fibrillation (HCC); Chronic anticoagulation 12/28/2024 Anticoagulation Visit [facility] Cardiology [address] [place] [address] [address] [place] [phone] Leeanne Dial RN Atrial fibrillation (CMS/HCC) [I48.91] (Primary Dx); Chronic atrial fibrillation (HCC); Chronic anticoagulation 12/15/2024 8:30 AM CDT Office Visit [facility] Cardiology [address] [place] [address] [address] [place] [phone] Gregor Whitehead MD Ischemic cardiomyopathy (Primary Dx); Other thrombophilia (HCC); Atrial fibrillation, unspecified type (HCC) 11/20/2024 Anticoagulation Visit [facility] Cardiology [address] [place] [address] [address] [place] [phone] Martin Cardona RN Atrial fibrillation (CMS/HCC) [...] on file Legal 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 Gender Identity Not on file Sexual Orientation [...] POCT LIPID PANEL Routine 06/15/2024 8:41 AM STORE STOCK ASSOCIATE Lipid screening from Last 3 Months or Most Recently Relevant to Health Maintenance Results * (ABNORMAL) Protime-INR (02/12/2025 6:13 AM CDT) INR 1.3(H) [facility] Comment: Reference Range 0.9-1.1 Moderate-intensity Warfarin Therapy 2.0-3.0 Higher-intensity Warfarin Therapy 3.0-4.0 PT 14.0(H) 9.0 - 11.5 sec [facility] Comment: For additional information, please refer to http://[employer]faq/CQW821 (This link is being provided for informational/ educational purposes only.) Blood 02/12/2025 6:13 AM CDT 02/12/2025 6:14 AM CDT Elodia Elias NP LAB BLOOD ORDERABLES Shaista l Result Performing Organization Address [facility] de Phone Number [facility] [address] [place] [address] * (ABNORMAL) Protime-INR (12/25/2024 6:04 AM CDT) INR 2.2(H) [facility] Comment: Reference Range 0.9-1.1 Moderate-intensity Warfarin Therapy 2.0-3.0 Higher-intensity Warfarin Therapy 3.0-4.0 PT 22.4(H) 9.0 - 11.5 sec [facility] Comment: For additional information, please refer to http://[employer]faq/COU967 (This link is being provided for informational/ educational purposes only.) Blood 12/25/2024 6:04 AM CDT 12/25/2024 6:04 AM CDT Elodia Elias NP LAB BLOOD ORDERABLES Shaista l Result Performing Organization Address [facility] Co de Phone Number [facility] [address] [place] [address] * Electrocardiogram Report (12/15/2024) 12/15/2024 Gregor Whitehead MD ECG ORDERABLES Final Result * (ABNORMAL) Protime-INR (11/20/2024 6:15 AM CDT) INR 2.0(H) [email or web address] Comment: Reference Range 0.9-1.1 Moderate-intensity Warfarin Therapy 2.0-3.0 Higher-intensity Warfarin Therapy 3.0-4.0 PT 20.9(H) 9.0 - 11.5 sec [facility] Comment: For additional information, please refer to http://education.[employer]faq/HQS289 (This link is being provided for informational/ educational purposes only.) Blood 11/20/2024 6:15 AM CDT 11/20/2024 6:15 AM CDT Narrative [facility] - 11/20/2024 3:26 PM CDT FASTING:NO FASTING: NO Elodia Elias NP LAB BLOOD ORDERABLES Shaista l Result [facility] [address] [place] [address] * POCT lipid panel (06/15/2024 8:41 AM STORE STOCK ASSOCIATE) Cholesterol, POC 152 mg/dL HDL, POC 36 mg/dL Triglycerides, POC 361 mg/dL LDL Cholesterol POC 44 mg/dL Chol/HDL Ratio, POC 1.2 Non-HDL Cholesterol, POC 116 mg/dL Cholesterol Total, POC 152 mg/dL Capillary blood 06/15/2024 8 :41 AM STORE STOCK ASSOCIATE Elodia Elias NP POINT OF CARE TEST ORDERA BLES Final Result from Last 3 Months or Most Recently Relevant to Health Maintenance Insurance AETNA MEDICARE GOLD T MEDICARE GOLD Care Teams Casket Upholsterer Relationship Specialty Start Date End Date Robert Jo NP [address] [facility] [address] [place] [address] PCP - General Nurse Practitioner 06/15/24
--- OUTSIDE RECORDS SUMMARY | 2025-02-19 13:16 | XMS_ITS | Clinical Summary ---
Author Organization [employer] [address] [place] [address] Address [address] [place] [address] Care Team Providers Care Jailkeeper Name Role Phone Juan Romero Primary Care Provider [phone] Allergies No known active allergies Medications cyanocobalamin 1,000 mcg Tablet Take 1,000 mcg by mouth daily. 6 Active Kend[place]-3 Fatty Acids 1,000 mg Capsule daily. 6 [...] Encounters Date Type Department Care Team Description 02/17/2025 Results Follow-Up [facility] and Vascular - [id number] [place] [address] [facility] [address] Gregg Osorio MD ICD PROGRAM/EVAL MULTI-LEAD 02/16/2025 8:00 AM CDT Procedure visit [facility] - [address] [facility] [address] [address] [facility] [address] [place] [address] NICM (nonischemic cardiomyopathy) (CMS/HCC) (Primary Dx); VT (ventricular tachycardia) (CMS/HCC); Chronic systolic heart failure (CMS/HCC) 02/05/2025 Abstract [facility] - [address] [place] [address] [facility] [place] [address] Provider, Abstract 02/03/2025 External Device Data STL [...] on file Legal Sex Male 3:48 AM FUNCTIONAL ARCHITECT Gender Identity Not on file Sexual Orientation Not on file Last Filed Vital Signs Vital Sign Reading Time Taken Comments Blood Pressure 138/80 02/16/2025 7:56 AM CDT Pulse 87 03/09/2022 1:00 PM CDT Temperature 36 C (96.8 F) 03/09/2022 11:57 AM CDT Respiratory Rate 19 03/09/2022 1:00 PM CDT Oxygen Saturation 97% 03/09/2022 1:00 PM CDT Inhaled Oxygen Concentration - - Weight 117 kg (258 lb) 02/16/2025 7:56 AM CDT Height 185.4 cm (6' 1) 02/16/2025 7:56 AM CDT Body Mass Index 34.04 02/16/2025 7:56 AM CDT Plan of Treatment Upcoming Encounters Date Type Department Care Team (Late st Contact Info) Description 06/08/2025 9:00 AM FUNCTIONAL ARCHITECT Procedure visit [facility] - [address] [facility] [address] [address] [facility] [address] [place] [address] Health Maintenance Due Date [...] Aortic Aneurysm (AAA) Screening 2024 Medicare Advantage ([place]) Prev entative Visit/Annual Wellness Visit 07/22/2024 INFLUENZA VACCINE (#1) 2025 Medical Devices Implanted Type Area Logistics Vice President Device Identifier Shelf Expiration Date Model / Serial / Lot Defib Icd Momentum Df1 Is1 Cisco Certified Network Associate-D G125 - [id number] Implanted:Qty : 1 on 03/09/2022 at [facility] Defibrillator Left: Chest GripeO NELLY 08/10/2023 G125 / [id number] / Procedures Procedure Name Priority Date/Time Associated Diagnosis Comments IA PRGRMG EVAL IMPLANTABLE IN PERSON MULTI LEAD DFB Routine 02/16/2025 8:15 AM CDT NICM (nonischemic cardiomyopathy) (CMS/HCC) VT (ventricular tachycardia) (CMS/HCC) Chronic systolic heart failure (CMS/HCC) from Last 3 Months Results * IA PRGRMG EVAL IMPLANTABLE IN PERSON MULTI LEAD DFB (02/16/2025 8:15 AM CDT) Narrative [facility] - 02/16/2025 8:15 AM CDT Andreina Nolan RN 02/16/2025 9:01 AM The patient was seen in clinic for evaluation of his [employer] biventricular implantable cardiac defibrillator. The patient reports to be feeling well and denies complaints of chest pain, shortness of breath, lightheadedness or syncope. Interrogation of the patient's Bi-V ICD shows that the device is functioning as programmed. Battery status is stable and the device calculates longevity at 7.5 years with an 11.2 second charge time. Lead impedances have all remained stable. Pacing and sensing thresholds are all stable. AP<1%, Bi-V paced-99%. The underlying rhythm during today's evaluation is sinus rhythm. There were 5 VT episodes detected by the device. The electrograms show one of these to be ventricular tachycardia with rates in the 180s, that the device appropriately detected and successfully treated with ATP X 1 to terminate the arrhythmia. The episode occurred on February 06, 2025. The other 4 electrograms show episodes of atrial tachycardia with one-to-one conduction. The patient is to follow-up in the device clinic in 4 months per his request. The patient was instructed to call the office with any questions or concerns. Conclusion: Normal device function. Atrial and ventricular tachycardia as described. us Gregg Osorio MD CARDIAC SERVICES ORDERABLES E dited Result - Final [facility] [address] [place] [place] [address] from Last 3 Months [facility] Care Teams Jailkeeper Relationship Specialty Start Date End Date Juan Romero DO [address] [facility] [address] [place] [address] PCP - General Internal Medicine 06/16/24
== END 2025-02-19 13:13 | disposition home or self-care (01) ==
PROVIDERS: PCP Nurse Practitioner; Visit Provider Urology
DX: N20.0 Calculus of kidney (principal)
CPT/HCPCS: 74018